=== PATIENT | female | born 1950 | race Hispanic/Latino ===

== ENCOUNTER 2017-10-24 17:11 | Emergency (ER) | payer MEDICARE, OTHER ==
[~2017-10-24] VITALS: Ht 162.6 cm; Wt 90.3 kg
[~2017-10-24 17:11] MED LIST: DOCUSATE PO; LOSARTAN-HCTZ1 EAC3 PO; MULTIVITAMIN1 EAC2 PO; VITAMIN C W/RO500 MG PO; Z FISH OIL PO; Z.1.METFORMIN HCL100 PO
[2017-10-24] MEDS ORDERED: TRADJENTA5 MG (17:48)
[2017-10-24] MEDS ORDERED: PANTOPRAZOLE SO40 MG PO (17:49)
[2017-10-24] MEDS ORDERED: TOPROL XL50 MG PO (17:50)
[2017-10-24] MEDS ORDERED: AMLODIPINE-ATO1 EA10 (17:51)
[2017-10-24] MEDS ORDERED: GABAPENTIN300 MG PO (17:51)
[2017-10-24] MEDS ORDERED: ULTRAM 50MG50 MG PO (17:52)
[2017-10-24] MEDS ORDERED: ASPIR 8181 MG (17:53)
[2017-10-24] MEDS ORDERED: CALCET TABLET1 EACH (17:54)
[2017-10-24] MEDS ORDERED: VITAMIN B-121000 MCG PO (17:55)
[2017-10-24] MEDS ORDERED: VITAMIN C500 M1 (17:56)
[2017-10-24] MEDS ORDERED: ACETAMINOPHEN 325 MG TAB PO ONE (18:00)
[2017-10-24] MEDS ORDERED: SODIUM CHLORIDE FLUSH 10 ML SYR INJ PRN (18:00)
[2017-10-24] MEDS ORDERED: DIAZEPAM 2 MG TAB PO ONE (19:00)
[2017-10-24] MEDS ORDERED: ALPRAZOLAM 1 MG TAB PO ONE (19:00)
--- OUTSIDE RECORDS SUMMARY | 2018-02-01 14:36 | XMS REPORT | Summary of Care ---
Author Author [facility] Address [address] [place] [address] Phone Unavailable Care Team Providers Care Pediatric Licensed Practical Nurse Name Role Phone FIDEL Mcqueen, SHELBY Unavailable Unavailable TOM Mcqueen, BARRETT Unavailable Unavailable TOM HAMILTON [place], BARRETT RAMEY Unavailable Unavailable Unavailable Unavailable Functional Status Name Dates Details Functional status health issues are not documented Status: Name Dates Details Cognitive status health issues are not documented Status: Problems Name Dates Details Atrial septal defect (745.5, Q21.1) Status: Active Osteoarthritis of both knees (715.96, M17.0) Status: Active Soft tissue mass (729.90, M79.9) Status: Active Dermatitis (692.9, L30.9) Status: Active Advanced care planning/counseling discussion (V65.49, Z71.89) Status: Active Exposure to MRSA (V01.89, Z20.818) Status: Active Degenerative joint disease of both lower legs (715.96) Status: Active Pre-operative clearance (V72.84, Z01.818) Status: Active Acute tracheobronchitis (466.0, J20.9) Status: Active RAD (reactive airway disease) (493.90, J45.909) Status: Active Stiffness of hand joint, left (719.54, M25.642) Status: Active Stiffness of hand joint, right (719.54, M25.641) Status: Active Influenza vaccine needed (V04.81, Z23) Status: Active Viral URI with cough (465.9, J06.9) Status: Active 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, 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) Status: Active Hyperlipidemia (272.4, E78.5) Status: Active Hand pain, left (729.5, M79.642) Status: Active Tenosynovitis of finger (727.05, M65.9) Status: Active Oral soft tissue cyst (528.4, K09.9) Status: Active Mass of floor of mouth (784.2, K13.70) Status: Active Submandibular lymphadenitis (289.3, I88.9) Status: Active Limb pain (729.5, M79.609) Status: Active Knee joint replacement status (V43.65, Z96.659) Status: Active Edema extremities (782.3, R60.0) Status: Active Petechiae (782.7, R23.3) Status: Active Essential (primary) hypertension (401.9, I10) Status: Active BMI 33.0-33.9,adult (V85.33, Z68.33) Status: Active Back pain with radiation (724.5, M54.9) Status: Active Need for hepatitis C screening test (V73.89, Z11.59) Status: Active Left hip pain (719.45, M25.552) Status: Active Pain of left lower extremity (729.5, M79.605) Status: Active Left leg pain (729.5, M79.605) Status: Active Other hyperlipidemia (272.4, E78.4) Status: Active 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, 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 Chronic GERD (530.81, K21.9) Status: Active At low risk for fall (V49.89, Z91.81) Status: Active 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, 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 Primary osteoarthritis of both hips (715.15, M16.0) Status: Active Mixed dyslipidemia (272.2, E78.2) Status: Active On statin therapy (V58.69, Z79.899) Status: Active Hypertension, well controlled (401.9, I10) Status: Active Controlled diabetes mellitus without complication, without long-term current use of insulin (250.00, E11.9) Status: Active Patient had no falls in past year (V49.89, Z78.9) Status: Active Depression screening (V79.0, Z13.89) Status: Active Encounter for mini-mental status examination Status: Active BMI 34.0-34.9,adult (V85.34, Z68.34) Status: Active Screening for hypothyroidism (V77.0, Z13.29) Status: Active BMI 32.0-32.9,adult (V85.32, Z68.32) Status: Active Encounter for diabetic foot exam (250.00, E11.9) Status: Active Comprehensive diabetic foot examination, type 2 DM, encounter for (250.00, E11.9) Status: Active Need for 23-polyvalent pneumococcal polysaccharide vaccine (V03.82, Z23) Status: Active Abnormal thyroid blood test (794.5, R94.6) Status: Active Acute sinusitis (461.9, J01.90) Status: Active Medications Name Dates Details MetFORMIN HCl - 1000 MG Oral Tablet TAKE 1 TABLET TWICE DAILY WITH MEALS. Quantity: 180 GOODSHAWNA M.D., BARRETT * Start : 22-Jan-2013 Active Losartan Potassium-HCTZ 100-12.5 MG Oral Tablet TAKE 1 TABLET BY MOUTH EVERY DAY * Quantity: 90 Refills: 2 GOODINE M.D., BARRETT * Start : 22-Jan-2013 Active Fish Oil 1000 MG Oral Capsule TAKE 1 CAPSULE DAILY. * Refills: 0 * Start : 22-Jan-2013 Active Vitamin C 500 MG Oral Tablet TAKE 1 TABLET DAILY. * Refills: 0 * Start : 22-Jan-2013 Active Centrum Oral Tablet TAKE 1 TABLET DAILY. * Refills: 0 * Start : 22-Jan-2013 Active Calcium 600 600 MG Oral Tablet TAKE 1 TABLET DAILY. * Refills: 0 * Start : 22-Jan-2013 Active Vitamin D3 2000 UNIT Oral Tablet take 1 tablet daiily * Quantity: 30 Refills: 5 * Start : 22-Jan-2013 Active Pantoprazole Sodium 40 MG Oral Tablet Delayed Release TAKE 1 TABLET BY MOUTH EVERY DAY * Quantity: 90 Refills: 2 GOODINE M.D., BARRETT * Start : 22-Jan-2013 Active Metoprolol Succinate ER 50 MG Oral Tablet Extended Release 24 Hour TAKE 1 TABLET TWICE DAILY * Quantity: 180 Refills: 2 GOODINE M.D., BARRETT * Start : 22-Jan-2013 Active Tradjenta 5 MG Oral Tablet TAKE 1 TABLET BY MOUTH EVERY DAY * Quantity: 90 Refills: 2 GOODINE M.D., BARRETT * Start : 28-Sep-2013 Active Vitamin B-12 TABS TAKE 1 TABLET DAILY. * Refills: 0 Active Triamterene-HCTZ 37.5-25 MG Oral Tablet TAKE 1 TABLET DAILY. * Quantity: 30 Refills: 5 SHELBY PARRA M.D. * Start : 28-Mar-2017 Active Meloxicam 15 MG Oral Tablet TAKE 1 TABLET Daily after a meal * Quantity: 30 Refills: 0 BARRETT SANTOS M.D. * Start : 28-Apr-2017 Active Tylenol TABS USE NEEDED * Refills: 0 Active Atorvastatin Calcium 40 MG Oral Tablet TAKE 1 TABLET BY MOUTH EVERY DAY DIRECTED * Quantity: 30 Refills: 1 VIKI SANTOS M.D.NDA * Start : 06-Jun-2017 Active Aspirin 81 MG TABS TAKE 1 TABLET DAILY. * Refills: 0 * Start : 22-Jan-2013 Active Gabapentin 300 MG Oral Capsule TAKE 1 CAPSULE 3 TIMES DAILY After 1 week, if tolerated, increase to 2 pills 3 times/day. * Quantity: 270 Refills: 2 VIKI SANTOS M.D.NDA * Start : 22-Jan-2013 Active AmLODIPine Besylate 5 MG Oral Tablet TAKE 1/2 TABLET ONCE DAILY. * Quantity: 90 Refills: 2 TOM Mcqueen, BARRETT * Start : 22-Jan-2013 Active Allergies and Adverse Reactions Name Dates Details No Known Drug Allergies (Allergy) Status: Active Past Medical History Name Dates Details History of Abnormal thyroid blood test (794.5, R94.6) Status: Resolved History of anemia (V12.3, Z86.2) Status: Resolved History of Atrial septal defect (745.5, Q21.1) Status: Resolved History of heartburn (V12.79, Z87.898) Status: Resolved History of hyperlipidemia (V12.29, Z86.39) Status: Resolved History of Multiparity (V61.5, Z64.1) Status: Resolved Procedures Procedure Dates Details [QLH] TSH, 3RD GENERATION W/REFLEX TO FT4 Date: 10-May-2017 [L] Lipid Panel w/ Chol/HDL Ratio Date: 10-May-2017 [QLH] CBC (INCLUDES DIFF/PLT) Date: 10-May-2017 [QLH] CMP W/EGFR Date: 10-May-2017 [QLH] MICROALBUMIN, RANDOM URINE (W/CREATININE) Date: 10-May-2017 [QLH] HEMOGLOBIN A1c Date: 10-May-2017 XRAY Hip min 2 views [id number] Date: 28-Apr-2017 History of Cholecystectomy Completed History of Knee Surgery Completed History of Section Completed History of Ovarian Cystectomy Completed Immunization Name Dates Details Pneumo on: 06-Nov-2007 Zostavax [id number] UNT/0.65ML Subcutaneous Solution Reconstituted on: 11-Mar-2009 Hepatitis A on: 11-Mar-2009 H1N1 Influenza Inj on: 01-Apr-2009 Influenza on: 10-Jan-2012 Fluzone INJ Lot #: [id number] on: 29-Jan-2013 Fluvirin INJ on: Jan-2014 Tdap on: 21-Jun-2014 Prevnar 13 Intramuscular Suspension Lot #: [id number] on: 01-Jul-2014 Fluzone INJ on: 21-Jan-2015 Pneumococcal polysaccharide vaccine, 23 valent Lot #: [id number] on: 16-Oct-2015 Fluzone Quadrivalent 0.5 ML Intramuscular Suspension Lot #: [id number] on: 06-Jan-2016 Fluzone High-Dose SUSP on: 15-Dec-2016 Family History Name Dates Details Family history of Diabetes Mellitus (V18.0) Status: Active Family history of Hypertension (V17.49) Status: Active Family history of Ischemic Stroke (V17.1) Status: Active Name Dates Details Family history of Alcohol Abuse Status: Active Social History Name Dates Details - Status: Name Dates Details Never smoker Vital Signs Date Test Result Details No Known Vitals to report Results Date Description Value Details [id number] Negative Retinal Eye Exam (Diabetic) Negative Diabetic Eye Screening 11May2017 Plan of Care Name Dates Details Planned Observations Planned Goals not documented Planned Encounters Appointment; SHELBY PARRA M.D. On: 03-Oct-2017 11:20 Appointment; BARRETT SANTOS M.D. On: 18-Oct-2017 8:30 Instructions Name Dates Details Instructions not documented Encounters Appointment; NOHEMI WILKS M.D. Encounter Diagnosis: Problem not documented On: 09-Jul-2015 9:00 Appointment; NOHEMI WILKS M.D. Encounter Diagnosis: Problem not documented On: 23-Jul-2015 9:00 Appointment; NOHEMI WILKS M.D. Encounter Diagnosis: Problem not documented On: 20-Aug-2015 9:45 Appointment; NOHEMI WILKS M.D. Encounter Diagnosis: Problem not documented On: 25-Aug-2015 7:00 Appointment; NOHEMI WILKS M.D. Encounter Diagnosis: Problem not documented On: 05-Sep-2015 10:30 Appointment; SHEBLY PARRA M.D. Encounter Diagnosis: Problem not documented On: 08-Sep-2015 11:20 Appointment; NOHEMI WILKS M.D. Encounter Diagnosis: Problem not documented On: 26-Sep-2015 10:00 Appointment; NOHEMI WILKS M.D. Encounter Diagnosis: Problem not documented On: 10-Oct-2015 13:00 Appointment; BARRETT SANTOS M.D. Encounter Diagnosis: Problem not documented On: 16-Oct-2015 10:45 Appointment; NOHEMI WILKS M.D. Encounter Diagnosis: Problem not documented On: 22-Oct-2015 9:00 Appointment; NOHEMI WILKS M.D. Encounter Diagnosis: Problem not documented On: 21-Nov-2015 10:15 Appointment; SHELBY PARRA M.D. Encounter Diagnosis: Problem not documented On: 27-Nov-2015 16:40 Appointment; SHELBY PARRA M.D. Encounter Diagnosis: Problem not documented On: 28-Nov-2015 16:40 Appointment; NOHEMI WILKS M.D. Encounter Diagnosis: Problem not documented On: 01-Jan-2016 9:45 Appointment; BARRETT SANTOS M.D. Encounter Diagnosis: Problem not documented On: 06-Jan-2016 10:45 Appointment; ROB WHITLEY M.D. Encounter Diagnosis: Problem not documented On: 21-Jan-2016 9:15 Appointment; NOHEMI WILKS M.D. Encounter Diagnosis: Problem not documented On: 22-Jan-2016 10:15 Appointment; KAREN EVANS M.D. Encounter Diagnosis: Problem not documented On: 22-Jan-2016 10:45 Appointment; NOHEMI WILKS M.D. Encounter Diagnosis: Problem not documented On: 26-Jan-2016 9:00 Appointment; NOHEMI WILKS M.D. Encounter Diagnosis: Problem not documented On: 13-Feb-2016 8:45 Appointment; NOHEMI WILKS M.D. Encounter Diagnosis: Problem not documented On: 08-Apr-2016 10:15 Appointment; SHELBY PARRA M.D. Encounter Diagnosis: Problem not documented On: 19-Apr-2016 11:20 Appointment; VASCULAR, BELLAIRE Encounter Diagnosis: Problem not documented On: 21-Apr-2016 9:30 Appointment; ROB WHITLEY M.D. Encounter Diagnosis: Problem not documented On: 21-Apr-2016 10:30 Appointment; BARRETT SANTOS M.D. Encounter Diagnosis: Problem not documented On: 04-May-2016 10:15 Appointment; BARRETT SANTOS M.D. Encounter Diagnosis: Problem not documented On: 01-Jul-2016 15:15 Appointment; NOHEMI WILKS M.D. Encounter Diagnosis: Problem not documented On: 07-Jul-2016 10:15 Appointment; BARRETT SANTOS M.D. Encounter Diagnosis: Problem not documented On: 09-Jul-2016 10:30 Appointment; BARRETT SANTOS M.D. Encounter Diagnosis: Problem not documented On: 30-Jul-2016 8:30 Appointment; BARRETT SANTOS M.D. Encounter Diagnosis: Problem not documented On: 18-Oct-2016 8:30 Appointment; ROB WHITLEY M.D. Encounter Diagnosis: Problem not documented On: 23-Nov-2016 16:00 Appointment; ROB WHITLEY M.D. Encounter Diagnosis: Problem not documented On: 24-Nov-2016 15:00 Appointment; VASCULAR, BELLAIRE Encounter Diagnosis: Problem not documented On: 25-Nov-2016 11:00 Appointment; ROB WHITLEY M.D. Encounter Diagnosis: Problem not documented On: 26-Nov-2016 11:00 Appointment; VASCULAR, BELLAIRE Encounter Diagnosis: Problem not documented On: 29-Nov-2016 14:30 Appointment; ROB WHITLEY M.D. Encounter Diagnosis: Problem not documented On: 29-Nov-2016 15:00 Appointment; NURSE, VISIT Encounter Diagnosis: Problem not documented On: 03-Dec-2016 13:00 Appointment; ROB WHITLEY M.D. Encounter Diagnosis: Problem not documented On: 08-Dec-2016 11:30 Appointment; MASON WEISS M.D. Encounter Diagnosis: Problem not documented On: 01-Mar-2017 10:30 Appointment; SHELBY PARRA M.D. Encounter Diagnosis: Problem not documented On: 28-Mar-2017 11:20 Appointment; MASON WEISS M.D. Encounter Diagnosis: Problem not documented On: 13-Apr-2017 8:00 Appointment; BARRETT SANTOS M.D. Encounter Diagnosis: Problem not documented On: 28-Apr-2017 8:30 Appointment; BARRETT SANTOS M.D. Encounter Diagnosis: Problem not documented On: 10-May-2017 9:00
== END 2017-10-24 19:50 | disposition home or self-care (01) ==
LOC: FSED 17:11
DX: R51 Headache (principal); I10 Essential (primary) hypertension; E11.9 Type 2 diabetes mellitus without complications; E78.5 Hyperlipidemia, unspecified; K21.9 Gastro-esophageal reflux disease without esophagitis
CPT/HCPCS: 70496; 80053; 82553; 84484; 85025; 99284

== ENCOUNTER 2019-01-17 20:04 | Emergency (ER) | payer MEDICARE ==
[~2019-01-17] VITALS: Ht 162.6 cm; Wt 86.2 kg
[~2019-01-17 20:04] MED LIST changes: +AMLODIPINE-ATO1 EA10; +ASPIR 8181 MG; +CALCET TABLET1 EACH; +GABAPENTIN300 MG PO; +PANTOPRAZOLE SO40 MG PO; +TOPROL XL50 MG PO; +TRADJENTA5 MG; +ULTRAM 50MG50 MG PO; +VITAMIN B-121000 MCG PO; +VITAMIN C500 M1
--- OUTSIDE RECORDS SUMMARY | 2019-01-17 20:08 | XMS REPORT | Continuity of Care Document ---
Author Author [employer] Organization [employer] Address Unknown Phone Unavailable Care Team Providers Care Cycle Counter Name Role Phone [employer] Unavailable Unavailable Problems Problem Status Onset Date Classification Date Reported Comments Source Encounter for screening mammogram for malignant neoplasm of breast 05/01/2018 11/12/2018 [facility] [place] Z12.31 - ENCNTR SCREEN MAMMOGRAM FOR MA Active 04/21/2018 [facility] [place] Low back pain 05/21/2017 08/24/2017 [facility] [place] BACK PAIN Active 02/07/2017 [facility] [place] UNK Active 01/01/2016 [facility] TOTAL KNEE ARTHROPLASTY Active 07/23/2015 [facility] KNEE ARTHRITIS 715.96 Active 05/09/2014 [facility] 719.46 - JOINT PAIN-L/LE Active 10/11/2013 SONIA [place] ASD Active 01/22/2013 [facility] 724.2 - LUMBAGO Active 05/12/2012 S[facility] [place] Muscle weakness (generalized) 08/24/2017 [facility] [place] Stiffness of unspecified joint, not elsewhere classified 08/24/2017 [facility] [place] Difficulty in walking, not elsewhere classified 08/24/2017 [facility] [place] Final: Stiffness of left knee, not elsewhere classified 05/03/2016 [facility] [place] Final: Difficulty in walking, not elsewhere classified 05/03/2016 [facility] [place] Gastroesophageal reflux disease (disorder) Active Problem 11/12/2018 [facility] [place],[facility] [place], [facility] [place] Diabetes mellitus (disorder) Active Problem 11/12/2018 SONIA [place],[facility] [place], [facility] [place] Hyperlipidemia (disorder) Active Problem 11/12/2018 SONIA [place],[facility] [place], [facility] [place] Hypertensive disorder, systemic arterial (disorder) Active Problem 11/12/2018 SONIA [place],[facility] [place], SONIA [place] Spinal stenosis (disorder) Active Problem 11/12/2018 [facility] [place],[facility], [facility] [place], [facility] [place] OSTEOARTHROS NOS-L/LEG Active [facility] UNILATERAL PRIMARY OSTEOARTHRITIS, RIGHT Active [facility] JOINT CAMP- S/P RT TKA Active ARNOLDO [place] PRESENCE OF RIGHT ARTIFICIAL KNEE JOINT Active [facility] [place] JOINT CAMP - S/P TKA Active [facility] [place] UNILATERAL PRIMARY OSTEOARTHRITIS, LEFT Active [facility], [facility] [place] PAIN IN LEFT KNEE Active [facility] [place] MUSCLE WEAKNESS (GENERALIZED) Active [facility] [place] JOINT CAMP Active [facility] [place] STIFFNESS OF LEFT KNEE, NOT ELSEWHERE CL Active [facility] [place] DIFFICULTY IN WALKING, NOT ELSEWHERE CLA Active [facility] [place] DORSALGIA, UNSPECIFIED Active [facility] [place] LOW BACK PAIN Active [facility] [place] STIFFNESS OF UNSPECIFIED JOINT, NOT ELSE Active [facility] [place] Medications Medication Details Route Status Patient Instructions Ordering Provider Order Date Source dexamethasone 2 mg, 0.5 tab, Route: PO, Drug form: TAB, ONCE, Start date: 01/29/16 12:00:00 CDT, Stop date: 01/29/16 12:00:00 CDTNotes: Give with food. (Same As: Decadron) No Longer Active 01/29/2016 [facility] dexamethasone 4 mg, 1 tab, Route: PO, Drug form: TAB, ONCE, Start date: 01/28/16 12:00:00 CDT, Stop date: 01/28/16 12:00:00 CDTNotes: Give with food. (Same As: Decadron) No Longer Active 01/28/2016 [facility] Saline Flush 0.9% 10 ml, Route: IVP, Drug Form: INJ, 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, kg, Q12H, Start date: 01/27/16 21:00:00 CDT, Duration: 30 day, Stop date: 02/26/16 9:00:00 CDTNotes: (Same as: BD Posiflush) Inactive 01/28/2016 [facility] dexamethasone 4 mg, 1 mL, Route: IV, Drug form: INJ, ONCE, Start date: 01/27/16 12:00:00 CDT, Stop date: 01/27/16 12:00:00 CDTNotes: Concentration: 4mg/ml Inactive 01/27/2016 [facility] Saline Flush 0.9% 10 ml, Route: IVP, Drug Form: INJ, 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, kg, PRN, PRN Line Flush, Start date: 01/27/16 11:19:00 CDT, Duration: 30 day, Stop date: 02/26/16 11:18:00 CDTNotes: (Same as: BD Posiflush) Inactive 01/27/2016 [facility] Enoxaparin 40 mg, 0.4 mL, Route: SUB-Q, Drug form: INJ, Daily, 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, kg, Start date: 01/27/16 9:22:00 CDT, Duration: 30 day, Stop date: 02/25/16 9:22:00 CDTNotes: (Same as: Lovenox) Inactive 01/27/2016 [facility] enoxaparin 40 mg/0.4 mL subcutaneous solution 40 mg=0.4 mL, SUB-Q, Daily, # 1 mL, 0 Refill(s), called to pharmacy No Longer Active 01/27/2016 [facility] dexamethasone 4 mg oral tablet 4 mg=1 tab, PO, ONCE, # 1 tab, 0 Refill(s), called to pharmacy Active 01/27/2016 [facility] Acetaminophen 325 MG / Oxycodone Hydrochloride 10 MG Oral Tablet [Percocet 10/325] 1 tab, PO, Q3H, PRN Pain Score 7-10, # 90 tab, 0 Refill(s), given to patient No Longer Active 01/27/2016 [facility] Vitamin C 500 mg, 1 tab, Route: PO, Drug form: TAB, Daily, 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, kg, Start date: 01/27/16 9:00:00 CDT, Duration: 30 day, Stop date: 02/25/16 9:00:00 CDTNotes: (Same as: Vitamin C) Inactive 01/27/2016 [facility] hydrochlorothiazide 25 mg oral tablet 12.5 mg, 0.5 tab, Route: PO, Drug form: TAB, Daily, Start date: 01/27/16 9:00:00 CDT, Duration: 30 day, Stop date: 02/25/16 9:00:00 CDTNotes: (Same as: Hydrodiuril) With food. Inactive 01/27/2016 [facility] Cozaar 100 mg, 2 tab, Route: PO, Drug form: TAB, Daily, Start date: 01/27/16 9:00:00 CDT, Duration: 30 day, Stop date: 02/25/16 9:00:00 CDTNotes: (Same as: Cozaar) Inactive 01/27/2016 [facility] Hydrochlorothiazide 12.5 MG / Losartan Potassium 100 MG Oral Tablet 1 tab, Route: PO, Drug Form: TAB, 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, kg, Daily, Start date: 01/27/16 9:00:00 CDT, Duration: 30 day, Stop date: 02/25/16 9:00:00 CDT No Longer Active 01/27/2016 [facility] atorvastatin 40 mg, 1 tab, Route: PO, Drug form: TAB, Bedtime, 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, kg, Start date: 01/26/16 21:00:00 CDT, Duration: 30 day, Stop date: 02/24/16 21:00:00 CDTNotes: (Same as: Lipitor) No Longer Active 01/27/2016 [facility] Vancomycin 6.67 MG/ML Injectable Solution 1,000 mg, Route: IVPB, [id number], 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, kg, Time Critical Medication, Start date: 01/26/16 19:30:00 CDT, Duration: 2 doses or times, Stop date: 01/27/16 7:30:00 CDT, Pharmacy to adjust dose for renal functionNotes: TIME CRITICAL MEDICATION (Same As: Vancocin) Infusion rate 2001 mg: infuse over 2.5 hours MEDICATION WASTE Product Size: 1000 mg Product Wasted: ___ mg No Longer Active 01/27/2016 [facility] Amlodipine 5 mg, 1 tab, Route: PO, Drug form: TAB, Daily, 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, kg, Start date: 01/26/16 18:00:00 CDT, Duration: 30 day, Stop date: 02/24/16 18:00:00 CDTNotes: (Same as: Norvasc) No Longer Active 01/26/2016 [facility] Docusate 100 mg, 1 cap, Route: PO, Drug form: CAP, BID, 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, kg, Start date: 01/26/16 17:00:00 CDT, Duration: 30 day, Stop date: 02/25/16 9:00:00 CDTNotes: (Same as: Colace) (Do Not Crush) No Longer Active 01/26/2016 [facility] 24 HR Metformin hydrochloride 1000 MG Extended Release Tablet 1,000 mg, 2 tab, Route: PO, Drug form: TAB, BID-Meals, 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, kg, Start date: 01/26/16 17:00:00 CDT, Duration: 30 day, Stop date: 02/25/16 8:00:00 CDTNotes: (Same as: Glucophage) Take with meal No Longer Active 01/26/2016 [facility] Cyklokapron + sodium chloride 0.9% INJ 100 mL 1,000 mg, 10 mL, Route: IVPB, ONCE, Start date: 01/26/16 16:30:00 CDT, Stop date: 01/26/16 16:30:00 CDTNotes: (Same As: Cyklokapron) Inactive 01/26/2016 [facility] pantoprazole 40 mg, 1 tab, Route: PO, Drug form: ECTAB, Before Dinner, 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, kg, Start date: 01/26/16 16:30:00 CDT, Duration: 30 day, Stop date: 02/24/16 16:30:00 CDTNotes: Tablet should not be ch ewed or crushed. (Same as: Protonix) No Longer Active 01/26/2016 [facility] tramadol hydrochloride 50 MG Oral Tablet 50 mg=1 tab, PO, BID, PRN Pain 1-3/Temp > 100.4 F, # 30 tab, 0 Refill(s) No Longer Active 01/26/2016 [facility] multivitamin 1 tab, PO, Daily, 0 Refill(s) Active 01/26/2016 [facility] Docusate Sodium 100 MG Oral Capsule [Colace] 100 mg=1 cap, PO, BID, # 60 cap, 0 Refill(s) Active 01/26/2016 [facility] Fish Oil 1200 mg oral capsule 1,200 mg=1 cap, PO, Daily, 0 Refill(s) Active 01/26/2016 [facility] Ketorolac 15 mg, 1 mL, Route: IV, Drug form: INJ, Q8H, 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, kg, Start date: 01/26/16 16:00:00 CDT, Duration: 2 day, Stop date: 01/28/16 8:00:00 CDTNotes: (Same as:Toradol) IV bolus must be given >15 seconds. Give IM administration slowly and deeply into the muscle. Not for use > 4 days. No Longer Active 01/26/2016 [facility] Zofran 4 mg, 2 mL, Route: IV, Drug form: INJ, Q8H, 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, kg, Start date: 01/26/16 16:00:00 CDT, Duration: 3 doses or times, Stop date: 01/27/16 8:00:00 CDTNotes: (Same as: Zofran) MEDICATION WASTE Product Size: 4 mg Product Wasted: ___ mg No Longer Active 01/26/2016 [facility] 24 HR Metoprolol Tartrate 50 MG Extended Release Tablet [Toprol] 50 mg, 1 tab, Route: PO, Drug form: ERTAB, BID, Start date: 01/26/16 14:00:00 CDT, Duration: 30 day, Stop date: 02/24/16 22:00:00 CDTNotes: (Same as: Toprol XL) May split tab, but do not crush. No Longer Active 01/26/2016 [facility] gabapentin 300 MG Oral Capsule 300 mg, 1 cap, Route: PO, Drug form: CAP, TID, 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, kg, Start date: 01/26/16 14:00:00 CDT, Duration: 30 day, Stop date: 02/25/16 8:00:00 CDTNotes: (Same as: Neurontin) No Longer Active 01/26/2016 [facility] ceFAZolin (SCIP) 1 gm, 100 mL, Route: IVPB, Drug form: INJ, Q6H, 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, kg, Start date: 01/26/16 13:30:00 CDT, Duration: 3 doses or times, Stop date: 01/27/16 1:30:00 CDT No Longer Active 01/26/2016 [facility] Insulin, Aspart, Human 4 unit, 0.04 mL, Route: SUB-Q, Drug form: SOLN, Bedtime, 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, kg, PRN Blood Glucose Results, Start date: 01/26/16 12:38:00 CDT, Duration: 30 day, Stop date: 02/25/16 12:37:00 CDTNotes: Roll in palms of hands gently; Do not shake vigorously. (Same as: NovoLOG) "single patient use only" WASTE: F/P - Black; E - Municipal Trash Bin Stable for 28 days at room temperature. Expires in days from Date No Longer Active 01/26/2016 [facility] Dextrose 50% Syringe 12.5 gm, 25 mL, Route: IVP, Drug Form: INJ, 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, kg, PRN, PRN Blood Glucose Results, Start date: 01/26/16 12:38:00 CDT, Duration: 30 day, Stop date: 02/25/16 12:37:00 CDT No Longer Active 01/26/2016 [facility] Glucagon 1 mg, Route: IM, Drug form: PDR/INJ, PRN, 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, kg, PRN Blood Glucose Results, Start date: 01/26/16 12:38:00 CDT, Duration: 30 day, Stop date: 02/25/16 12:37:00 CDT No Longer Active 01/26/2016 [facility] Diphenhydramine 12.5 mg, 0.5 tab, Route: PO, Drug form: TAB, Q6H, 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, kg, PRN Itching, Start date: 01/26/16 11:19:00 CDT, Duration: 30 day, Stop date: 02/25/16 11:18:00 CDT No Longer Active 01/26/2016 [facility] Bisacodyl 10 mg, 1 supp, Route: LA, Drug form: SUPP, Daily, 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, kg, PRN Constipation, Start date: 01/26/16 11:19:00 CDT, Duration: 30 day, Stop date: 02/25/16 11:18:00 CDTNotes: (Same As: Dulcolax, Bisco-Lax) No Longer Active 01/26/2016 [facility] Dilaudid 0.2 mg, 0.2 mL, Route: IV, Drug form: INJ, Q3H, 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, kg, PRN Other -See Comment, Start date: 01/26/16 11:19:00 CDT, Duration: 30 day, Stop date: 02/25/16 11:18:00 CDT No Longer Active 01/26/2016 [facility] Zofran 4 mg, 2 mL, Route: IV, Drug form: INJ, Q6H, 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, kg, PRN Nausea, Start date: 01/26/16 11:19:00 CDT, Duration: 30 day, Stop date: 02/25/16 11:18:00 CDTNotes: (Same as: Zofran) MEDICATION WASTE Product Size: 4 mg Product Wasted: ___ mg No Longer Active 01/26/2016 [facility] Acetaminophen 325 MG / Hydrocodone Bitartrate 5 MG Oral Tablet [[place] 5/325] 1 tab, Route: PO, Drug Form: TAB, 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, kg, Q3H, PRN Pain Score 1-3, Start date: 01/26/16 11:19:00 CDT, Duration: 30 day, Stop date: 02/25/16 11:18:00 CDTNotes: (Same as: [place] 325/5) Do not exceed 4gm/day of acetaminophen. No Longer Active 01/26/2016 [facility] Acetaminophen 325 MG / Hydrocodone Bitartrate 10 MG Oral Tablet [[place] 10/325] 1 tab, Route: PO, Drug Form: TAB, 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, kg, Q3H, PRN Pain Score 4-6, Start date: 01/26/16 11:19:00 CDT, Duration: 30 day, Stop date: 02/25/16 11:18:00 CDTNotes: Do not exceed 4gm/day of acetaminophen. (Same as: [place] 325/10) No Longer Active 01/26/2016 [facility] Acetaminophen 325 MG / Oxycodone Hydrochloride 10 MG Oral Tablet [Percocet 10/325] 1 tab, Route: PO, Drug Form: TAB, 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, kg, Q3H, PRN Pain Score 7-10, Start date: 01/26/16 11:19:00 CDT, Duration: 30 day, Stop date: 02/25/16 11:18:00 CDTNotes: Do not exceed 4gm/day of acetaminophen. (Same as: Percocet-5/325) No Longer Active 01/26/2016 [facility] Dexamethasone 4 mg, Route: IV, ONCE, 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, kg, Start date: 01/26/16 11:19:00 CDT, Stop date: 01/26/16 11:19:00 CDT Inactive 01/26/2016 [facility] Tranexamic Acid 1,000 mg, Route: IV, ONCE, 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, kg, Start date: 01/26/16 11:19:00 CDT, Stop date: 01/26/16 11:19:00 CDT Inactive 01/26/2016 [facility] sodium chloride 0.45% 1000 ml INJ 1,000 mL 1,000 mL, Rate: 75 ml/hr, Infuse over: 13.3 hr, Route: IV, 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 kg, Total Volume: 1,000, Start date: 01/26/16 11:19:00 CDT, Duration: 30 day, Stop date: 02/25/16 11:18:00 CDT No Longer Active 01/26/2016 [facility] neostigmine (ANES) Route: IV, Drug form: INJ, ONCE, Stop date: 01/26/16 11:01:00 CDT Inactive 01/26/2016 [facility] tranexamic acid (ANES) Route: IV, Drug form: INJ, ONCE, Stop date: 01/26/16 10:56:00 CDT Inactive 01/26/2016 [facility] ondansetron (ANES) Route: IV, Drug form: INJ, ONCE, Stop date: 01/26/16 10:56:00 CDT Inactive 01/26/2016 [facility] ePHEDrine (ANES) Route: IV, Drug form: INJ, ONCE, Stop date: 01/26/16 9:01:00 CDT Inactive 01/26/2016 [facility] glycopyrrolate (ANES) Route: IV, Drug form: INJ, ONCE, Stop date: 01/26/16 8:51:00 CDT Inactive 01/26/2016 [facility] phenylephrine (ANES) Route: IV, Drug form: INJ, ONCE, Stop date: 01/26/16 8:51:00 CDT Inactive 01/26/2016 [facility] dexamethasone (ANES) Route: IV, Drug form: INJ, ONCE, Stop date: 01/26/16 8:41:00 CDT Inactive 01/26/2016 [facility] vancomycin (ANES) Route: IV, Drug form: INJ, ONCE, Stop date: 01/26/16 8:41:00 CDT Inactive 01/26/2016 [facility] rocuronium (ANES) Route: IV, Drug form: INJ, ONCE, Stop date: 01/26/16 8:36:00 CDT Inactive 01/26/2016 [facility] lidocaine (ANES) Route: IV, Drug form: INJ, ONCE, Stop date: 01/26/16 8:36:00 CDT Inactive 01/26/2016 [facility] propofol (ANES) Route: IV, Drug form: INJ, ONCE, Stop date: 01/26/16 8:36:00 CDT Inactive 01/26/2016 [facility] ceFAZolin (ANES) Route: IV, Drug form: INJ, ONCE, Stop date: 01/26/16 8:36:00 CDT Inactive 01/26/2016 [facility] LR 1000 mL INJ (ANES) Route: IV, Total Volume: 1,000, Start date: 01/26/16 7:39:00 CDT, Stop date: 01/26/16 8:39:00 CDT Inactive 01/26/2016 [facility] Calcium Chloride 0.0014 MEQ/ML / Potassium Chloride 0.004 MEQ/ML / Sodium Chloride 0.103 MEQ/ML / Sodium Lactate 0.028 MEQ/ML Injectable Solution 1,000 mL, Rate: 25 ml/hr, Infuse over: 40 hr, Route: IV, 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 kg, Total Volume: 1,000, Start date: 01/26/16 7:18:00 CDT, Duration: 30 day, Stop date: 02/25/16 7:17:00 CDT Inactive 01/26/2016 [facility] Oxycontin 10 mg, Route: PO, Drug form: ERTAB, ONCALL, 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, kg, Start date: 01/26/16 7:00:00 CDT, Duration: 30 day, Stop date: 02/25/16 6:59:00 CDT Inactive 01/26/2016 [facility] Tylenol 1,000 mg, Route: PO, ONCALL, 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, kg, Start date: 01/26/16 7:00:00 CDT, Duration: 30 day, Stop date: 02/25/16 6:59:00 CDT Inactive 01/26/2016 [facility] Tranexamic Acid 1,000 mg, Route: IV, ONCALL, 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, kg, Start date: 01/26/16 7:00:00 CDT, Duration: 30 day, Stop date: 02/25/16 6:59:00 CDT Inactive 01/26/2016 [facility] celecoxib 200 mg, Route: PO, ONCALL, 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, kg, (for CrCl > 90 mL/min), Start date: 01/26/16 7:00:00 CDT, Duration: 30 day, Stop date: 02/25/16 6:59:00 CDT Inactive 01/26/2016 [facility] ropivacaine 100 mL, Route: InFILtration(local), Drug Form: INJ, 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, kg, ONCALL, Start date: 01/26/16 7:00:00 CDT, Duration: 1 day, Stop date: 01/27/16 6:59:00 CDTNotes: NOT FOR IV use R opivacaine 5 mg/mL (49.25 mL) Epinephrine 1 mg/mL (0.5 mL) Clonidine 0.1 mg/mL (0.8 mL) Ketorolac 30 mg/mL (1 mL) Normal Saline 48.45 mL No Longer Active 01/26/2016 [facility] Cefazolin 2 gm, 100 mL, Route: IVPB, Drug form: INJ, ONCALL, 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, kg, Start date: 01/26/16 7:00:00 CDT, Duration: 30 day, Stop date: 02/25/16 6:59:00 CDTNotes: Same as: Ancef Inactive 01/26/2016 [facility] Vancomycin 1,250 mg, 250 mL, Route: IVPB, Drug form: INJ, ONCALL, 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, kg, Start date: 01/26/16 7:00:00 CDT, Stop date: 01/26/16 21:12:00 CDTNotes: TIME CRITICAL MEDICATION Same as: Vancocin-NS (p remixed) Infusion rate 2001 mg: infuse over 2.5 hours No Longer Active 01/26/2016 [facility] Diclofenac Sodium 0.01 MG/MG Topical Gel [Voltaren] 4 gm=1 appl, TOP, BID, PRN Apply to affected area, # 100 gm, 1 Refill(s) No Longer Active 01/08/2016 [facility] Aspirin 81 MG Enteric Coated Tablet 81 mg=1 tab, PO, Daily, # 90 tab, 3 Refill(s) No Longer Active 01/08/2016 [facility] dexamethasone 2 mg, 0.5 tab, Route: PO, Drug form: TAB, ONCE, Start date: 08/29/15 9:00:00 CDT, Stop date: 08/29/15 9:00:00 CDTNotes: Give with food. (Same As: Decadron) No Longer Active 08/29/2015 [facility] dexamethasone 2 mg, 0.5 tab, Route: PO, Drug form: TAB, ONCE, Start date: 08/28/15 9:00:00 CDT, Stop date: 08/28/15 9:00:00 CDTNotes: Give with food. (Same As: Decadron) No Longer Active 08/28/2015 [facility] Acetaminophen 325 MG / Hydrocodone Bitartrate 10 MG Oral Tablet 1 tab, PO, Q3H, PRN Pain, # 90 tab, 0 Refill(s), given to patient No Longer Active 08/27/2015 [facility] enoxaparin 40 mg/0.4 mL subcutaneous solution 40 mg=0.4 mL, SUB-Q, [id number], # 1 mL, 0 Refill(s), called to pharmacy No Longer Active 08/27/2015 [facility] dexamethasone 4 mg, 1 tab, Route: PO, Drug form: TAB, ONCE, Start date: 08/27/15 9:00:00 CDT, Stop date: 08/27/15 9:00:00 CDTNotes: Give with food. (Same As: Decadron) Inactive 08/27/2015 [facility] Saline Flush 0.9% 10 ml, Route: IVP, Drug Form: INJ, 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, kg, Q12H, Start date: 08/26/15 21:00:00 CDT, Duration: 30 day, Stop date: 09/25/15 9:00:00 CDTNotes: (Same as: BD Posiflush) No Longer Active 08/27/2015 [facility] Potassium Chloride 20 MEQ Extended Release Tablet 20 mEq, 1 tab, Route: PO, Drug form: ERTAB, ONCE, Dosing Weight 93.182, kg, Priority: NOW, Start date: 08/26/15 16:21:00 CDT, Stop date: 08/26/15 16:21:00 CDTNotes: (Same as: K-Dur 20) "Do Not Crush" With food and full glass of water Inactive 08/26/2015 [facility] pt own Tradjenta pt own Tradjenta, 5 mg, Drug form: MISC, Route: PO, Daily, 08/26/15 13:00:00 CDT, Duration: 30 day, Stop date: 09/25/15 9:00:00 CDTNotes: non-formulary No Longer Active 08/26/2015 [facility] acetaminophen-hydrocodone 325 mg-10 mg oral tablet 1 tab, Route: PO, Drug Form: TAB, 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, kg, Q3H, PRN Pain Score 4-6, Start date: 08/26/15 11:34:00 CDT, Duration: 30 day, Stop date: 09/25/15 11:33:00 CDTNotes: Do not exceed 4gm/day of acetaminophen. (Same as: [place] 325/10) No Longer Active 08/26/2015 [facility] Tylenol 325 mg, 1 tab, Route: PO, Drug form: TAB, Q3H, PRN Pain Score 7-10, Start date: 08/26/15 11:27:00 CDT, Duration: 30 day, Stop date: 09/25/15 11:26:00 CDTNotes: Do not exceed 4 gm/day. (Same as: Tylenol) No Longer Active 08/26/2015 [facility] OxyIR 10 mg, 2 tab, Route: PO, Drug form: TAB, Q3H, PRN Pain Score 7-10, Start date: 08/26/15 11:26:00 CDT, Duration: 30 day, Stop date: 09/25/15 11:25:00 CDTNotes: (Same as: OxyIR) No Longer Active 08/26/2015 [facility] Tylenol 325 mg, 1 tab, Route: PO, Drug form: TAB, Q3H, PRN Pain Score 4-6, Start date: 08/26/15 11:25:00 CDT, Duration: 30 day, Stop date: 09/25/15 11:24:00 CDTNotes: Do not exceed 4 gm/day. (Same as: Tylenol) Inactive 08/26/2015 [facility] OxyIR 10 mg, 2 tab, Route: PO, Drug form: TAB, Q3H, PRN Pain Score 4-6, Start date: 08/26/15 11:25:00 CDT, Duration: 30 day, Stop date: 09/25/15 11:24:00 CDTNotes: (Same as: OxyIR) Inactive 08/26/2015 [facility] Saline Flush 0.9% 10 ml, Route: IVP, Drug Form: INJ, 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, kg, PRN, PRN Line Flush, Start date: 08/26/15 10:23:00 CDT, Duration: 30 day, Stop date: 09/25/15 10:22:00 CDTNotes: (Same as: BD Posiflush) No Longer Active 08/26/2015 [facility] Enoxaparin 40 mg, 0.4 mL, Route: SUB-Q, Drug form: INJ, [id number], 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, kg, Start date: 08/26/15 9:30:00 CDT, Duration: 30 day, Stop date: 09/24/15 9:30:00 CDTNotes: (Same as: Lovenox) No Longer Active 08/26/2015 [facility] dexamethasone 4 mg, 1 mL, Route: IVP, Drug form: INJ, ONCE, Start date: 08/26/15 9:00:00 CDT, Stop date: 08/26/15 9:00:00 CDTNotes: Concentration: 4mg/ml Inactive 08/26/2015 [facility] pantoprazole 40 mg, 1 tab, Route: PO, Drug form: ECTAB, Daily, 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, kg, Start date: 08/26/15 9:00:00 CDT, Duration: 30 day, Stop date: 09/24/15 9:00:00 CDTNotes: Tablet should not be chewed or cr ushed. (Same as: Protonix) No Longer Active 08/26/2015 [facility] 24 HR Metformin hydrochloride 1000 MG Extended Release Tablet 1,000 mg, 2 tab, Route: PO, Drug form: ERTAB, BID, 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, kg, Start date: 08/26/15 9:00:00 CDT, Duration: 30 day, Stop date: 09/24/15 17:00:00 CDTNotes: (Same as: Glucophage XR) "Do Not Crush" No Longer Active 08/26/2015 [facility] Tradjenta 5 mg, Route: PO, Drug form: TAB, Daily, 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, kg, Start date: 08/26/15 9:00:00 CDT Inactive 08/26/2015 [facility] Hydrochlorothiazide 12.5 MG / Losartan Potassium 100 MG Oral Tablet 1 tab, Route: PO, Drug Form: TAB, 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, kg, Daily, Start date: 08/26/15 9:00:00 CDT, Duration: 30 day, Stop date: 09/24/15 9:00:00 CDT No Longer Active 08/26/2015 [facility] gabapentin 300 MG Oral Capsule 300 mg, 1 cap, Route: PO, Drug form: CAP, TID, 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, kg, Start date: 08/26/15 9:00:00 CDT, Duration: 30 day, Stop date: 09/24/15 17:00:00 CDTNotes: (Same as: Neurontin) No Longer Active 08/26/2015 [facility] Cozaar 100 mg, 2 tab, Route: PO, Drug form: TAB, Daily, Start date: 08/26/15 9:00:00 CDT, Duration: 30 day, Stop date: 09/24/15 9:00:00 CDTNotes: (Same as: Cozaar) No Longer Active 08/26/2015 [facility] Aspirin 81 mg, 1 tab, Route: PO, Drug form: ECTAB, Daily, 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, kg, Start date: 08/26/15 9:00:00 CDT, Duration: 30 day, Stop date: 09/24/15 9:00:00 CDTNotes: Do not crush or chew. (Same As: Ecotrin) No Longer Active 08/26/2015 [facility] Amlodipine 5 mg, 1 tab, Route: PO, Drug form: TAB, Daily, 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, kg, Start date: 08/26/15 9:00:00 CDT, Duration: 30 day, Stop date: 09/24/15 9:00:00 CDTNotes: (Same as: Norvasc) No Longer Active 08/26/2015 [facility] Microzide 12.5 mg, 1 cap, Route: PO, Drug form: CAP, Daily, Start date: 08/26/15 9:00:00 CDT, Duration: 30 day, Stop date: 09/24/15 9:00:00 CDTNotes: (Same as: Microzide) With food. No Longer Active 08/26/2015 [facility] 24 HR Metoprolol Tartrate 50 MG Extended Release Tablet [Toprol] 50 mg, 1 tab, Route: PO, Drug form: ERTAB, BID, Start date: 08/25/15 22:00:00 CDT, Duration: 30 day, Stop date: 09/24/15 14:00:00 CDTNotes: (Same as: Toprol XL) May split tab, but do not crush. No Longer Active 08/26/2015 [facility] atorvastatin 40 mg, 1 tab, Route: PO, Drug form: TAB, Bedtime, 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, kg, Start date: 08/25/15 21:00:00 CDT, Duration: 30 day, Stop date: 09/23/15 21:00:00 CDTNotes: (Same as: Lipitor) No Longer Active 08/26/2015 [facility] Vancomycin 6.67 MG/ML Injectable Solution 1,000 mg, Route: IVPB, [id number], 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, kg, Time Critical Medication, Start date: 08/25/15 20:00:00 CDT, Duration: 2 doses or times, Stop date: 08/26/15 8:00:00 CDT, Pharmacy to adjust dose for renal functionNotes: TIME CRITICAL MEDICATION (Same As: Vancocin) Infusion rate 2001 mg: infuse over 2.5 hours MEDICATION WASTE Product Size: 1000 mg Product Wasted: ___ mg No Longer Active 08/26/2015 [facility] Insulin, Aspart, Human 10 unit, 0.1 mL, Route: SUB-Q, Drug form: SOLN, TID-Before Meals, 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, kg, PRN Blood Glucose Results, Start date: 08/25/15 18:28:00 CDT, Duration: 30 day, Stop date: 09/24/15 18:27:00 CDTNotes: Roll in palms of hands gently; Do not shake vigorously. (Same as: NovoLOG) "single patient use only" WASTE: F/P - Black; E - Municipal Trash Bin Stable for 28 days at room temperature. Expires in days from Date No Longer Active 08/25/2015 [facility] Dextrose 50% Syringe 12.5 gm, 25 mL, Route: IVP, Drug Form: INJ, 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, kg, PRN, PRN Blood Glucose Results, Start date: 08/25/15 18:28:00 CDT, Duration: 30 day, Stop date: 09/24/15 18:27:00 CDT No Longer Active 08/25/2015 [facility] Glucagon 1 mg, Route: IM, Drug form: PDR/INJ, PRN, 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, kg, PRN Blood Glucose Results, Start date: 08/25/15 18:28:00 CDT, Duration: 30 day, Stop date: 09/24/15 18:27:00 CDT No Longer Active 08/25/2015 [facility] Docusate 100 mg, 1 cap, Route: PO, Drug form: CAP, BID, 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, kg, Start date: 08/25/15 17:00:00 CDT, Duration: 30 day, Stop date: 09/24/15 9:00:00 CDTNotes: (Same as: Colace) (Do Not Crush) No Longer Active 08/25/2015 [facility] Zofran 4 mg, 2 mL, Route: IV, Drug form: INJ, Q8H, 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, kg, Start date: 08/25/15 16:00:00 CDT, Duration: 3 doses or times, Stop date: 08/26/15 8:00:00 CDTNotes: (Same as: Zofran) MEDICATION WASTE Product Size: 4 mg Product Wasted: ___ mg No Longer Active 08/25/2015 [facility] Cyklokapron + Sodium Chloride 0.9% IV 90 mL 1,000 mg, 10 mL, Route: IVPB, ONCE, Start date: 08/25/15 16:00:00 CDT, Stop date: 08/25/15 16:00:00 CDTNotes: (Same As: Cyklokapron) Inactive 08/25/2015 [facility] ceFAZolin (SCIP) 1 gm, 100 mL, Route: IVPB, Drug form: INJ, [id number], 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, kg, Start date: 08/25/15 14:00:00 CDT, Duration: 3 doses or times, Stop date: 08/26/15 2:00:00 CDT No Longer Active 08/25/2015 [facility] glycopyrrolate (ANES) Route: IV, Drug form: INJ, ONCE, Stop date: 08/25/15 10:38:00 CDT Inactive 08/25/2015 [facility] neostigmine (ANES) Route: IV, Drug form: INJ, ONCE, Stop date: 08/25/15 10:38:00 CDT Inactive 08/25/2015 [facility] ondansetron (ANES) Route: IV, Drug form: INJ, ONCE, Stop date: 08/25/15 10:23:00 CDT Inactive 08/25/2015 [facility] Diphenhydramine 12.5 mg, 5 mL, Route: PO, Drug form: LIQ, Q6H, 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, kg, PRN Itching, Start date: 08/25/15 10:23:00 CDT, Duration: 30 day, Stop date: 09/24/15 10:22:00 CDTNotes: (Same as: Benadryl) No Longer Active 08/25/2015 [facility] Bisacodyl 10 mg, 1 supp, Route: LA, Drug form: SUPP, Daily, 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, kg, PRN Constipation, Start date: 08/25/15 10:23:00 CDT, Duration: 30 day, Stop date: 09/24/15 10:22:00 CDTNotes: (Same As: Dulcolax, Bisco-Lax) No Longer Active 08/25/2015 [facility] Dexamethasone 10 mg, 2.5 mL, Route: IV, Drug form: INJ, ONCE, 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, kg, Start date: 08/25/15 10:23:00 CDT, Stop date: 08/25/15 10:23:00 CDTNotes: Concentration: 4mg/ml Inactive 08/25/2015 [facility] Tranexamic Acid 1,000 mg, Route: IV, ONCE, 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, kg, Start date: 08/25/15 10:23:00 CDT, Stop date: 08/25/15 10:23:00 CDT Inactive 08/25/2015 [facility] Acetaminophen 325 MG / Hydrocodone Bitartrate 10 MG Oral Tablet [[place] 10/325] 1 tab, Route: PO, Drug Form: TAB, 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, kg, Q3H, PRN Pain Score 4-6, Start date: 08/25/15 10:23:00 CDT, Duration: 30 day, Stop date: 09/24/15 10:22:00 CDTNotes: Do not exceed 4gm/day of acetaminophen. (Same as: [place] 325/10) No Longer Active 08/25/2015 [facility] Zofran 4 mg, 2 mL, Route: IV, Drug form: INJ, Q6H, 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, kg, PRN Nausea, Start date: 08/25/15 10:23:00 CDT, Duration: 30 day, Stop date: 09/24/15 10:22:00 CDTNotes: (Same as: Zofran) MEDICATION WASTE Product Size: 4 mg Product Wasted: ___ mg No Longer Active 08/25/2015 [facility] Acetaminophen 325 MG / Hydrocodone Bitartrate 5 MG Oral Tablet [[place] 5/325] 1 tab, Route: PO, Drug Form: TAB, 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, kg, Q3H, PRN Pain Score 1-3, Start date: 08/25/15 10:23:00 CDT, Duration: 30 day, Stop date: 09/24/15 10:22:00 CDTNotes: (Same as: [place] 325/5) Do not exceed 4gm/day of acetaminophen. No Longer Active 08/25/2015 [facility] Acetaminophen 325 MG / Oxycodone Hydrochloride 10 MG Oral Tablet [Percocet 10/325] 1 tab, Route: PO, Drug Form: TAB, 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, kg, Q3H, PRN Pain Score 7-10, Start date: 08/25/15 10:23:00 CDT, Duration: 30 day, Stop date: 09/24/15 10:22:00 CDTNotes: Do not exceed 4gm/day of acetaminophen. (Same as: Percocet-10/325) No Longer Active 08/25/2015 [facility] Dilaudid 0.2 mg, 0.2 mL, Route: IVP, Drug form: INJ, Q3H, 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, kg, PRN Other -See Comment, Start date: 08/25/15 10:23:00 CDT, Duration: 30 day, Stop date: 09/24/15 10:22:00 CDT No Longer Active 08/25/2015 [facility] 1/2 NS 1,000 mL 1,000 mL, Rate: 75 ml/hr, Infuse over: 13.3 hr, Route: IV, 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 kg, Total Volume: 1,000, Start date: 08/25/15 10:23:00 CDT, Duration: 30 day, Stop date: 09/24/15 10:22:00 CDT No Longer Active 08/25/2015 [facility] tranexamic acid (ANES) Route: IV, Drug form: INJ, ONCE, Stop date: 08/25/15 10:23:00 CDT Inactive 08/25/2015 [facility] ePHEDrine (ANES) Route: IV, Drug form: INJ, ONCE, Stop date: 08/25/15 9:53:00 CDT Inactive 08/25/2015 [facility] fentaNYL (ANES) Route: IV, Drug form: INJ, ONCE, Stop date: 08/25/15 9:48:00 CDT Inactive 08/25/2015 [facility] vancomycin (ANES) Route: IV, Drug form: INJ, ONCE, Stop date: 08/25/15 9:03:00 CDT Inactive 08/25/2015 [facility] ceFAZolin (ANES) Route: IV, Drug form: INJ, ONCE, Stop date: 08/25/15 8:58:00 CDT Inactive 08/25/2015 [facility] hydromorphone (ANES) Route: IV, Drug form: INJ, ONCE, Stop date: 08/25/15 8:58:00 CDT Inactive 08/25/2015 [facility] propofol (ANES) Route: IV, Drug form: INJ, ONCE, Stop date: 08/25/15 8:58:00 CDT Inactive 08/25/2015 [facility] rocuronium (ANES) Route: IV, Drug form: INJ, ONCE, Stop date: 08/25/15 8:58:00 CDT Inactive 08/25/2015 [facility] lidocaine (ANES) Route: IV, Drug form: INJ, ONCE, Stop date: 08/25/15 8:58:00 CDT Inactive 08/25/2015 [facility] Glucose 50 MG/ML / Sodium Chloride 0.154 MEQ/ML Injectable Solution 1,000 mL, Rate: 25 ml/hr, Infuse over: 40 hr, Route: IV, 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 kg, Total Volume: 1,000, Start date: 08/25/15 7:51:00 CDT, Duration: 30 day, Stop date: 09/24/15 7:50:00 CDT Inactive 08/25/2015 [facility] Normosol-R 1,000 mL, Rate: 25 ml/hr, Infuse over: 40 hr, Route: IV, 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 kg, Total Volume: 1,000, Start date: 08/25/15 7:51:00 CDT, Duration: 30 day, Stop date: 09/24/15 7:50:00 CDT Inactive 08/25/2015 [facility] Calcium Chloride 0.0014 MEQ/ML / Potassium Chloride 0.004 MEQ/ML / Sodium Chloride 0.103 MEQ/ML / Sodium Lactate 0.028 MEQ/ML Injectable Solution 1,000 mL, Rate: 25 ml/hr, Infuse over: 40 hr, Route: IV, 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 kg, Total Volume: 1,000, Start date: 08/25/15 7:51:00 CDT, Duration: 30 day, Stop date: 09/24/15 7:50:00 CDT Inactive 08/25/2015 [facility] Sodium Chloride 0.154 MEQ/ML Injectable Solution 1,000 mL, Rate: 25 ml/hr, Infuse over: 40 hr, Route: IV, 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 kg, Total Volume: 1,000, Start date: 08/25/15 7:51:00 CDT, Duration: 30 day, Stop date: 09/24/15 7:50:00 CDT Inactive 08/25/2015 [facility] Lactated Ringers Injection IV (ANES) (ANES) Route: IV, Total Volume: 1,000, Start date: 08/25/15 7:46:00 CDT, Stop date: 08/25/15 8:46:00 CDT Inactive 08/25/2015 [facility] Vancomycin 1,250 mg, 250 mL, Route: IVPB, Drug form: INJ, ONCALL, 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, kg, Start date: 08/25/15 7:00:00 CDT, Duration: 30 day, Stop date: 09/24/15 6:59:00 CDTNotes: TIME CRITICAL MEDICATION Same as: Vancocin-NS (premixed) Infusion rate 2001 mg: infuse over 2.5 hours No Longer Active 08/25/2015 [facility] Cefazolin 2 gm, 100 mL, Route: IVPB, Drug form: INJ, ONCALL, 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, kg, Start date: 08/25/15 7:00:00 CDT, Duration: 1 day, Stop date: 08/26/15 6:59:00 CDTNotes: Same as: Ancef No Longer Active 08/25/2015 [facility] Tranexamic Acid 1,000 mg, 10 mL, Route: IV, ONCALL, 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, kg, Start date: 08/25/15 7:00:00 CDT, Duration: 1 day, Stop date: 08/26/15 6:59:00 CDTNotes: (Same As: Cyklokapron) No Longer Active 08/25/2015 [facility] Tylenol 1,000 mg, Route: PO, ONCALL, 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, kg, Start date: 08/25/15 7:00:00 CDT, Duration: 30 day, Stop date: 09/24/15 6:59:00 CDT Inactive 08/25/2015 [facility] Oxycontin 10 mg, Route: PO, Drug form: ERTAB, ONCALL, 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, kg, Start date: 08/25/15 7:00:00 CDT, Duration: 30 day, Stop date: 09/24/15 6:59:00 CDT Inactive 08/25/2015 [facility] ropivacaine 100 mL, Route: InFILtration(local), Drug Form: INJ, 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, kg, ONCALL, Start date: 08/25/15 7:00:00 CDT, Duration: 30 day, Stop date: 09/24/15 6:59:00 CDTNotes: NOT FOR IV use Ropivacaine 5 mg/mL (49.25 mL) Epinephrine 1 mg/mL (0.5 mL) Clonidine 0.1 mg/mL (0.8 mL) Ketorolac 30 mg/mL (1 mL) Normal Saline 48.45 mL No Longer Active 08/25/2015 [facility] celecoxib 200 mg, Route: PO, ONCALL, 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, kg, (for CrCl > 90 mL/min), Start date: 08/25/15 7:00:00 CDT, Duration: 30 day, Stop date: 09/24/15 6:59:00 CDT Inactive 08/25/2015 [facility] Aspirin Low Dose 81 mg oral tablet =1 tab, PO, Daily, # 100 tab, 3 Refill(s) No Longer Active 08/14/2015 [facility] tramadol hydrochloride 50 MG Oral Tablet 50 mg=1 tab, PO, BID, # 180 tab, 1 Refill(s) Active 08/14/2015 [facility] gabapentin 300 MG Oral Capsule 300 mg=1 cap, PO, TID, # 90 cap, 0 Refill(s) Active 08/14/2015 [facility] atorvastatin 40 mg oral tablet 40 mg=1 tab, PO, Bedtime, # 30 tab, 0 Refill(s) Active 08/14/2015 [facility] amLODIPine 5 mg oral tablet 5 mg=1 tab, PO, Daily, 1 tab at 6pm, # 90 tab, 0 Refill(s) Active 08/14/2015 [facility] 24 HR Metoprolol Tartrate 50 MG Extended Release Tablet [Toprol] 50 mg=1 tab, PO, BID, 1 tab at 2pm then 1 tab at 10pm, # 30 tab, 0 Refill(s) Active 08/14/2015 [facility] pantoprazole 40 mg oral enteric coated tablet 40 mg=1 tab, PO, Daily, # 30 tab, 0 Refill(s) Active 08/14/2015 [facility] Vitamin B12 1000 mcg oral tablet 1,000 microgram=1 tab, PO, Daily, # 30 tab, 0 Refill(s) Active 08/14/2015 [facility] Vitamin D3 1000 intl units oral tablet 1,000 IntlUnit=1 tab, PO, Daily, # 30 tab, 0 Refill(s) Active 08/14/2015 [facility] Calcium Carbonate 1500 MG / Cholecalciferol 800 UNT Oral Tablet 1 tab, PO, BID, 0 Refill(s) Active 08/14/2015 [facility] Vitamin C with Fiona Hips 500 mg oral capsule 500 mg=1 cap, PO, Daily, # 30 cap, 0 Refill(s) Active 08/14/2015 [facility] docusate sodium 100 mg oral capsule 100 mg=1 cap, PO, Daily, # 60 cap, 3 Refill(s) Active 08/14/2015 [facility] Fish Oil 1200 mg oral capsule 1,200 mg=1 cap, PO, TID, 0 Refill(s) Active 08/14/2015 [facility] multivitamin Daily, 0 Refill(s) Active 08/14/2015 [facility] Linagliptin 5 MG Oral Tablet [Tradjenta] 5 mg=1 tab, PO, Daily, # 30 tab, 3 Refill(s) Active 08/14/2015 [facility] 24 HR Metformin hydrochloride 1000 MG Extended Release Tablet 1,000 mg=1 tab, PO, BID, # 60 tab, 0 Refill(s) Active 08/14/2015 [facility] Hydrochlorothiazide 12.5 MG / Losartan Potassium 100 MG Oral Tablet 1 tab, PO, Daily, # 30 tab, 0 Refill(s) Active 08/14/2015 [facility] Amlodipine/Atorvastatin (Amlodipine-Atorvast 2.5-40 Mg) 1 Each Tablet Daily Active [facility] Ascorbic Acid (Vitamin C W/Fiona Hips) 500 Mg Tablet Daily Active [facility] Ascorbic Acid (Vitamin C) 500 Mg Tablet Daily Active [facility] Aspirin (Aspir 81) 81 Mg Tablet. Daily Active [facility] Calcium Carb & Lact/Vitamin D3 (Calcet Tablet) 1 Each Tablet Daily Active [facility] Cyanocobalamin (Vitamin B-12) 1,000 Mcg Tab Daily Active [facility] Docusate Sodium 100 Mg Capsule Daily Active [facility] Gabapentin 300 Mg Capsule Three Times A Day Active [facility] Linagliptin (Tradjenta) 5 Mg Tablet Daily Active [facility] Losartan/Hydrochlorothiazide (Losartan-Hctz 100-12.5 Mg Tab) 1 Each Tablet Daily Active [facility] Metformin Hcl 1,000 Mg Tablet Twice A Day Active [facility] Metoprolol Succinate (Toprol Xl) 50 Mg Tab.er.24h Twice A Day Active [facility] Multivitamins (Multivitamin) 1 Each Tablet Daily Active [facility] [place]-3/Dha/Epa/Fish Oil (Fish Oil 1,000 Mg Softgel) 1 Each Capsule Twice A Day [facility] Pantoprazole Sodium (Protonix) 40 Mg Tablet. Daily Active [facility] Tramadol Hcl (Ultram 50MG*) 50 Mg Tab Daily as needed for Pain Active [facility] Allergies, Adverse Reactions, Alerts Substance Category Reaction Severity Reaction type Status Date Reported Comments Source No Known Drug Allergies Unknown Allergy to Substance Active 04/14/2009 [facility] No Known Medication Allergies Assertion Drug allergy SONIA Gallegos Immunizations No Data Provided for This Section Results Order Name Results Value Reference Range Date Interpretation Comments Source ELECTROLYTES AGAP 13.2 10.0 - 20.0 01/27/2016 [facility] ELECTROLYTES Calcium Lvl 8.1 8.5 - 10.5 01/27/2016 [facility] ELECTROLYTES CO2 26 24 - 32 01/27/2016 [facility] ELECTROLYTES eGFR 95 01/27/2016 Result Comment: The eGFR is calculated using the CKD-EPI formula. In most young, healthy individuals the eGFR will be >90 mL/min/1.73m2. The eGFR declines with age. An eGFR of 60-89 may be normal in some populations, particularly the elderly, for whom the CKD-EPI formula has not been extensively validated. Use of the eGFR is not recommended in the following populations:

Individuals with unstable creatinine concentrations, including patients and those with serious co-morbid conditions.

Patients with extremes in muscle mass or diet.

The data above are obtained from the National Kidney Disease Education Program (NKDEP) which additionally recommends that when the eGFR is used in patients with extremes of body mass index for purposes of drug dosing, the eGFR should be multiplied by the estimated BMI. [facility] ELECTROLYTES Chloride Lvl 99 95 - 109 01/27/2016 [facility] ELECTROLYTES Potassium Lvl 4.2 3.5 - 5.1 01/27/2016 [facility] ELECTROLYTES Sodium Lvl 134 135 - 145 01/27/2016 [facility] ELECTROLYTES Creatinine Lvl 0.62 0.50 - 1.40 01/27/2016 [facility] ELECTROLYTES Glucose Lvl 116 70 - 99 01/27/2016 [facility] ELECTROLYTES BUN 16 7 - 22 01/27/2016 [facility] Hct 26.2 36.0 - 48.0 01/27/2016 [facility] RBC 3.11 4.20 - 5.40 01/27/2016 [facility] WBC 9.9 3.7 - 10.4 01/27/2016 [facility] Hgb 9.1 12.0 - 16.0 01/27/2016 [facility] MPV 6.8 7.4 - 10.4 01/27/2016 [facility] MCV 84.5 80.0 - 98.0 01/27/2016 [facility] MCH 29.4 27.0 - 31.0 01/27/2016 [facility] MCHC 34.8 32.0 - 36.0 01/27/2016 [facility] Platelet 313 133 - 450 01/27/2016 [facility] RDW 14.3 11.5 - 14.5 01/27/2016 [facility] HEMATOLOGY Eosinophils # 0.1 0.0 - 0.5 01/27/2016 [facility] HEMATOLOGY Monocytes # 1.1 0.0 - 0.8 01/27/2016 [facility] HEMATOLOGY Segs 71.6 45.0 - 75.0 01/27/2016 [facility] HEMATOLOGY Basophils 0.7 0.0 - 1.0 01/27/2016 [facility] HEMATOLOGY Lymphocytes # 1.5 1.0 - 5.5 01/27/2016 [facility] Segs-Bands # 7.1 1.5 - 8.1 01/27/2016 [facility] Basophils # 0.1 0.0 - 0.2 01/27/2016 [facility] HEMATOLOGY Lymphocytes 15.1 20.0 - 40.0 01/27/2016 [facility] HEMATOLOGY Eosinophils 1.3 0.0 - 4.0 01/27/2016 [facility] Monocytes 11.3 2.0 - 12.0 01/27/2016 [facility] CHEM PANEL eGFR 79 01/26/2016 Result Comment: The eGFR is calculated using the CKD-EPI formula. In most young, healthy individuals the eGFR will be >90 mL/min/1.73m2. The eGFR declines with age. An eGFR of 60-89 may be normal in some populations, particularly the elderly, for whom the CKD-EPI formula has not been extensively validated. Use of the eGFR is not recommended in the following populations:

Individuals with unstable creatinine concentrations, including patients and those with serious co-morbid conditions.

Patients with extremes in muscle mass or diet.

The data above are obtained from the National Kidney Disease Education Program (NKDEP) which additionally recommends that when the eGFR is used in patients with extremes of body mass index for purposes of drug dosing, the eGFR should be multiplied by the estimated BMI. [facility] CHEM PANEL Creatinine Lvl 0.79 0.50 - 1.40 01/26/2016 [facility] HEMATOLOGY Platelet 420 133 - 450 01/26/2016 [facility] HEMATOLOGY PTT 29.8 22.9 - 35.8 01/26/2016 [facility] HEMATOLOGY PT 14.0 12.0 - 14.7 01/26/2016 [facility] HEMATOLOGY INR 1.05 0.85 - 1.17 01/26/2016 [facility] BACTERIAL - SEROLOGY MRSA by PCR Negative (01/08/16 12:49 PM) 01/08/2016 [facility] BLOOD BANK RESULTS Antibody Scrn Negative (01/08/16 12:49 PM) 01/08/2016 [facility] BLOOD BANK RESULTS ABO/Rh A POS 01/08/2016 [facility] CHEM PANEL Globulin 4.1 2.7 - 4.2 01/08/2016 [facility] CHEM PANEL B/C Ratio 27 6 - 25 01/08/2016 [facility] CHEM PANEL AGAP 10.5 10.0 - 20.0 01/08/2016 [facility] CHEM PANEL A/G Ratio 1.0 0.7 - 1.6 01/08/2016 [facility] CHEM PANEL eGFR 95 01/08/2016 Result Comment: The eGFR is calculated using the CKD-EPI formula. In most young, healthy individuals the eGFR will be >90 mL/min/1.73m2. The eGFR declines with age. An eGFR of 60-89 may be normal in some populations, particularly the elderly, for whom the CKD-EPI formula has not been extensively validated. Use of the eGFR is not recommended in the following populations:

Individuals with unstable creatinine concentrations, including patients and those with serious co-morbid conditions.

Patients with extremes in muscle mass or diet.

The data above are obtained from the National Kidney Disease Education Program (NKDEP) which additionally recommends that when the eGFR is used in patients with extremes of body mass index for purposes of drug dosing, the eGFR should be multiplied by the estimated BMI. [facility] CHEM PANEL Bili Total 0.4 0.2 - 1.3 01/08/2016 [facility] CHEM PANEL AST 15 0 - 37 01/08/2016 [facility] CHEM PANEL Alk Phos 61 39 - 136 01/08/2016 [facility] CHEM PANEL CO2 30 24 - 32 01/08/2016 [facility] CHEM PANEL Chloride Lvl 101 95 - 109 01/08/2016 [facility] CHEM PANEL Potassium Lvl 3.5 3.5 - 5.1 01/08/2016 [facility] CHEM PANEL Total Protein 8.2 6.4 - 8.4 01/08/2016 [facility] CHEM PANEL Calcium Lvl 9.0 8.5 - 10.5 01/08/2016 [facility] CHEM PANEL Albumin Lvl 4.1 3.5 - 5.0 01/08/2016 [facility] CHEM PANEL ALT 14 0 - 65 01/08/2016 [facility] CHEM PANEL Glucose Lvl 112 70 - 99 01/08/2016 [facility] CHEM PANEL Creatinine Lvl 0.60 0.50 - 1.40 01/08/2016 [facility] CHEM PANEL Sodium Lvl 138 135 - 145 01/08/2016 [facility] CHEM PANEL BUN 16 7 - 22 01/08/2016 [facility] HEMATOLOGY PTT 27.3 22.9 - 35.8 01/08/2016 [facility] HEMATOLOGY PT 12.5 12.0 - 14.7 01/08/2016 [facility] HEMATOLOGY INR 0.90 0.85 - 1.17 01/08/2016 [facility] HEMATOLOGY Segs-Bands # 5.8 1.5 - 8.1 01/08/2016 [facility] HEMATOLOGY Lymphocytes # 2.1 1.0 - 5.5 01/08/2016 [facility] HEMATOLOGY Basophils # 0.1 0.0 - 0.2 01/08/2016 [facility] HEMATOLOGY Lymphocytes 23.3 20.0 - 40.0 01/08/2016 [facility] HEMATOLOGY Monocytes 9.4 2.0 - 12.0 01/08/2016 [facility] HEMATOLOGY Segs 64.1 45.0 - 75.0 01/08/2016 [facility] HEMATOLOGY Eosinophils 2.2 0.0 - 4.0 01/08/2016 [facility] HEMATOLOGY Basophils 1.0 0.0 - 1.0 01/08/2016 [facility] HEMATOLOGY Monocytes # 0.8 0.0 - 0.8 01/08/2016 [facility] HEMATOLOGY Eosinophils # 0.2 0.0 - 0.5 01/08/2016 [facility] HEMATOLOGY MCH 28.3 27.0 - 31.0 01/08/2016 [facility] MCHC 33.5 32.0 - 36.0 01/08/2016 [facility] HEMATOLOGY Platelet 288 133 - 450 01/08/2016 [facility] HEMATOLOGY MPV 7.4 7.4 - 10.4 01/08/2016 [facility] HEMATOLOGY RDW 14.9 11.5 - 14.5 01/08/2016 [facility] HEMATOLOGY Hct 36.3 36.0 - 48.0 01/08/2016 [facility] HEMATOLOGY MCV 84.5 80.0 - 98.0 01/08/2016 [facility] HEMATOLOGY RBC 4.30 4.20 - 5.40 01/08/2016 [facility] HEMATOLOGY Hgb 12.2 12.0 - 16.0 01/08/2016 [facility] HEMATOLOGY WBC 9.1 3.7 - 10.4 01/08/2016 [facility] URINE AND STOOL UA Mucus Few /LPF None Seen /LPF 01/08/2016 [facility] URINE AND STOOL UA RBC 2 0 - 2 01/08/2016 [facility] URINE AND STOOL UA WBC 3 0 - 5 01/08/2016 [facility] URINE AND STOOL UA Leuk Est Trace *ABN* (01/08/16 12:49 PM) Negative 01/08/2016 [facility] URINE AND STOOL UA Sq Epi Occasional /LPF Few /LPF 01/08/2016 [facility] URINE AND STOOL UA Urobilinogen <=1.0 mg/dL 0.1 - 1.0 01/08/2016 [facility] URINE AND STOOL UA Hyal Cast 3 0 - 2 01/08/2016 [facility] URINE AND STOOL UA Nitrite Negative (01/08/16 12:49 PM) Negative 01/08/2016 [facility] URINE AND STOOL UA Ketones Negative mg/dL Negative mg/dL 01/08/2016 [facility] URINE AND STOOL UA Bili Negative *NA* (01/08/16 12:49 PM) Negative 01/08/2016 [facility] URINE AND STOOL UA Blood Negative (01/08/16 12:49 PM) Negative 01/08/2016 [facility] URINE AND STOOL UA Protein Negative mg/dL Negative mg/dL 01/08/2016 [facility] URINE AND STOOL UA Glucose Negative mg/dL Negative mg/dL 01/08/2016 [facility] URINE AND STOOL UA Turbidity Clear (01/08/16 12:49 PM) Clear 01/08/2016 [facility] URINE AND STOOL UA Spec Grav 1.024 <=1.030 01/08/2016 [facility] URINE AND STOOL UA pH 5.0 5.0 - 8.0 01/08/2016 [facility] URINE AND STOOL UA Color Yellow *NA* (01/08/16 12:49 PM) Yellow 01/08/2016 [facility] CHEM PANEL Magnesium Lvl 1.5 1.8 - 2.4 08/27/2015 [facility] CHEM PANEL eGFR 105 08/27/2015 Result Comment: The eGFR is calculated using the CKD-EPI formula. In most young, healthy individuals the eGFR will be >90 mL/min/1.73m2. The eGFR declines with age. An eGFR of 60-89 may be normal in some populations, particularly the elderly, for whom the CKD-EPI formula has not been extensively validated. Use of the eGFR is not recommended in the following populations:

Individuals with unstable creatinine concentrations, including patients and those with serious co-morbid conditions.

Patients with extremes in muscle mass or diet.

The data above are obtained from the National Kidney Disease Education Program (NKDEP) which additionally recommends that when the eGFR is used in patients with extremes of body mass index for purposes of drug dosing, the eGFR should be multiplied by the estimated BMI. [facility] CHEM PANEL Creatinine Lvl 0.45 0.50 - 1.40 08/27/2015 [facility] CHEM PANEL BUN 11 7 - 22 08/27/2015 [facility] CHEM PANEL Glucose Lvl 111 70 - 99 08/27/2015 [facility] CHEM PANEL AGAP 11.6 10.0 - 20.0 08/27/2015 [facility] CHEM PANEL Calcium Lvl 8.4 8.5 - 10.5 08/27/2015 [facility] CHEM PANEL CO2 30 24 - 32 08/27/2015 [facility] CHEM PANEL Chloride Lvl 102 95 - 109 08/27/2015 [facility] CHEM PANEL Potassium Lvl 3.6 3.5 - 5.1 08/27/2015 [facility] CHEM PANEL Sodium Lvl 140 135 - 145 08/27/2015 [facility] HEMATOLOGY Hgb 10.1 12.0 - 16.0 08/27/2015 [facility] MCH 30.1 27.0 - 31.0 08/27/2015 [facility] HEMATOLOGY MCV 89.6 80.0 - 98.0 08/27/2015 [facility] HEMATOLOGY Hct 30.1 36.0 - 48.0 08/27/2015 [facility] HEMATOLOGY MCHC 33.6 32.0 - 36.0 08/27/2015 [facility] HEMATOLOGY WBC 13.4 3.7 - 10.4 08/27/2015 [facility] HEMATOLOGY RBC 3.36 4.20 - 5.40 08/27/2015 [facility] HEMATOLOGY MPV 7.8 7.4 - 10.4 08/27/2015 [facility] Platelet 293 133 - 450 08/27/2015 [facility] RDW 13.5 11.5 - 14.5 08/27/2015 [facility] HEMATOLOGY Bands 1.0 0.0 - 11.0 08/27/2015 [facility] HEMATOLOGY Segs 68.0 45.0 - 75.0 08/27/2015 [facility] Eosinophils # 0.1 0.0 - 0.5 08/27/2015 [facility] Monocytes # 0.4 0.0 - 0.8 08/27/2015 [facility] Basophils # 0.1 0.0 - 0.2 08/27/2015 [facility] RBC Morph Normal (08/27/15 4:43 AM) 08/27/2015 [facility] Atypical Lymphs 0.0 <=0.0 % 08/27/2015 [facility] Monocytes 3.0 2.0 - 12.0 08/27/2015 [facility] Lymphocytes 26.0 20.0 - 40.0 08/27/2015 [facility] Eosinophils 1.0 0.0 - 4.0 08/27/2015 [facility] Tot Cell Ct 100 08/27/2015 [facility] Plt Morph Normal (08/27/15 4:43 AM) 08/27/2015 [facility] Basophils 1.0 0.0 - 1.0 08/27/2015 [facility] Lymphocytes # 3.5 1.0 - 5.5 08/27/2015 [facility] Segs-Bands # 9.2 1.5 - 8.1 08/27/2015 [facility] CHEM PANEL eGFR 95 08/26/2015 Result Comment: The eGFR is calculated using the CKD-EPI formula. In most young, healthy individuals the eGFR will be >90 mL/min/1.73m2. The eGFR declines with age. An eGFR of 60-89 may be normal in some populations, particularly the elderly, for whom the CKD-EPI formula has not been extensively validated. Use of the eGFR is not recommended in the following populations:

Individuals with unstable creatinine concentrations, including patients and those with serious co-morbid conditions.

Patients with extremes in muscle mass or diet.

The data above are obtained from the National Kidney Disease Education Program (NKDEP) which additionally recommends that when the eGFR is used in patients with extremes of body mass index for purposes of drug dosing, the eGFR should be multiplied by the estimated BMI. [facility] CHEM PANEL Calcium Lvl 8.3 8.5 - 10.5 08/26/2015 [facility] CHEM PANEL Chloride Lvl 101 95 - 109 08/26/2015 [facility] CHEM PANEL CO2 30 24 - 32 08/26/2015 [facility] CHEM PANEL Potassium Lvl 3.4 3.5 - 5.1 08/26/2015 [facility] CHEM PANEL Sodium Lvl 137 135 - 145 08/26/2015 [facility] CHEM PANEL Creatinine Lvl 0.61 0.50 - 1.40 08/26/2015 [facility] CHEM PANEL BUN 10 7 - 22 08/26/2015 [facility] CHEM PANEL Glucose Lvl 128 70 - 99 08/26/2015 [facility] CHEM PANEL AGAP 9.4 10.0 - 20.0 08/26/2015 [facility] HEMATOLOGY INR 1.17 0.85 - 1.17 08/26/2015 [facility] HEMATOLOGY PT 15.2 12.0 - 14.7 08/26/2015 [facility] HEMATOLOGY PTT 28.5 22.9 - 35.8 08/26/2015 [facility] HEMATOLOGY Segs-Bands # 9.3 1.5 - 8.1 08/26/2015 [facility] HEMATOLOGY Lymphocytes # 1.3 1.0 - 5.5 08/26/2015 [facility] HEMATOLOGY Monocytes # 1.2 0.0 - 0.8 08/26/2015 [facility] HEMATOLOGY Monocytes 10.3 2.0 - 12.0 08/26/2015 [facility] HEMATOLOGY Basophils 0.4 0.0 - 1.0 08/26/2015 [facility] HEMATOLOGY Segs 78.5 45.0 - 75.0 08/26/2015 [facility] HEMATOLOGY Lymphocytes 10.8 20.0 - 40.0 08/26/2015 [facility] HEMATOLOGY RBC 3.30 4.20 - 5.40 08/26/2015 [facility] HEMATOLOGY Hgb 9.9 12.0 - 16.0 08/26/2015 [facility] HEMATOLOGY WBC 11.8 3.7 - 10.4 08/26/2015 [facility] HEMATOLOGY Hct 29.7 36.0 - 48.0 08/26/2015 [facility] HEMATOLOGY MCV 89.9 80.0 - 98.0 08/26/2015 [facility] HEMATOLOGY Platelet 264 133 - 450 08/26/2015 [facility] HEMATOLOGY RDW 13.4 11.5 - 14.5 08/26/2015 [facility] HEMATOLOGY MCH 30.1 27.0 - 31.0 08/26/2015 [facility] HEMATOLOGY MPV 7.9 7.4 - 10.4 08/26/2015 [facility] HEMATOLOGY MCHC 33.5 32.0 - 36.0 08/26/2015 [facility] BLOOD BANK RESULTS Antibody Scrn Negative (08/25/15 6:37 AM) 08/25/2015 [facility] BLOOD BANK RESULTS ABO/Rh A POS 08/25/2015 [facility] SPECIAL CHEMISTRY Hgb A1C 6.1 <=5.6 % 08/14/2015 [facility] URINE AND STOOL UA Urobilinogen <=1.0 mg/dL 0.1 - 1.0 08/14/2015 [facility] URINE AND STOOL UA Color Ltyellow 08/14/2015 [facility] URINE AND STOOL UA RBC 1 0 - 2 08/14/2015 [facility] URINE AND STOOL UA WBC 1 0 - 5 08/14/2015 [facility] URINE AND STOOL UA Sq Epi Occasional /LPF Few /LPF 08/14/2015 [facility] URINE AND STOOL UA Leuk Est Negative (08/14/15 12:51 PM) Negative 08/14/2015 [facility] URINE AND STOOL UA Blood Negative (08/14/15 12:51 PM) Negative 08/14/2015 [facility] URINE AND STOOL UA Nitrite Negative (08/14/15 12:51 PM) Negative 08/14/2015 [facility] URINE AND STOOL UA Ketones Negative mg/dL Negative mg/dL 08/14/2015 [facility] URINE AND STOOL UA Bili Negative *NA* (08/14/15 12:51 PM) Negative 08/14/2015 [facility] URINE AND STOOL UA Protein Negative mg/dL Negative mg/dL 08/14/2015 [facility] URINE AND STOOL UA Glucose Negative mg/dL Negative mg/dL 08/14/2015 [facility] URINE AND STOOL UA Spec Grav 1.008 <=1.030 08/14/2015 [facility] URINE AND STOOL UA pH 7.0 5.0 - 8.0 08/14/2015 [facility] URINE AND STOOL UA Turbidity Clear (08/14/15 12:51 PM) Clear 08/14/2015 [facility] BACTERIAL - SEROLOGY MRSA by PCR Negative (08/14/15 12:50 PM) 08/14/2015 [facility] BLOOD BANK RESULTS ABO/Rh A POS 08/14/2015 [facility] BLOOD BANK RESULTS Antibody Scrn Negative (08/14/15 12:50 PM) 08/14/2015 [facility] CHEM PANEL eGFR 98 08/14/2015 Result Comment: The eGFR is calculated using the CKD-EPI formula. In most young, healthy individuals the eGFR will be >90 mL/min/1.73m2. The eGFR declines with age. An eGFR of 60-89 may be normal in some populations, particularly the elderly, for whom the CKD-EPI formula has not been extensively validated. Use of the eGFR is not recommended in the following populations:

Individuals with unstable creatinine concentrations, including patients and those with serious co-morbid conditions.

Patients with extremes in muscle mass or diet.

The data above are obtained from the National Kidney Disease Education Program (NKDEP) which additionally recommends that when the eGFR is used in patients with extremes of body mass index for purposes of drug dosing, the eGFR should be multiplied by the estimated BMI. [facility] CHEM PANEL Chloride Lvl 97 95 - 109 08/14/2015 [facility] CHEM PANEL Potassium Lvl 3.8 3.5 - 5.1 08/14/2015 [facility] CHEM PANEL Sodium Lvl 135 135 - 145 08/14/2015 [facility] CHEM PANEL Creatinine Lvl 0.56 0.50 - 1.40 08/14/2015 [facility] CHEM PANEL BUN 12 7 - 22 08/14/2015 [facility] CHEM PANEL Glucose Lvl 108 70 - 99 08/14/2015 [facility] CHEM PANEL Calcium Lvl 9.8 8.5 - 10.5 08/14/2015 [facility] CHEM PANEL CO2 31 24 - 32 08/14/2015 [facility] CHEM PANEL AGAP 10.8 10.0 - 20.0 08/14/2015 [facility] HEMATOLOGY PT 13.5 12.0 - 14.7 08/14/2015 [facility] HEMATOLOGY INR 1.00 0.85 - 1.17 08/14/2015 [facility] HEMATOLOGY PTT 28.7 22.9 - 35.8 08/14/2015 [facility] HEMATOLOGY Platelet 342 133 - 450 08/14/2015 [facility] HEMATOLOGY RDW 13.6 11.5 - 14.5 08/14/2015 [facility] HEMATOLOGY MPV 7.3 7.4 - 10.4 08/14/2015 [facility] HEMATOLOGY MCHC 33.9 32.0 - 36.0 08/14/2015 [facility] MCH 30.3 27.0 - 31.0 08/14/2015 [facility] HEMATOLOGY MCV 89.4 80.0 - 98.0 08/14/2015 [facility] HEMATOLOGY Hct 37.4 36.0 - 48.0 08/14/2015 [facility] RBC 4.19 4.20 - 5.40 08/14/2015 [facility] Hgb 12.7 12.0 - 16.0 08/14/2015 [facility] WBC 8.2 3.7 - 10.4 08/14/2015 [facility] Basophils # 0.1 0.0 - 0.2 08/14/2015 [facility] Eosinophils # 0.1 0.0 - 0.5 08/14/2015 [facility] Monocytes # 0.6 0.0 - 0.8 08/14/2015 [facility] Lymphocytes 28.9 20.0 - 40.0 08/14/2015 [facility] Segs 61.6 45.0 - 75.0 08/14/2015 [facility] Lymphocytes # 2.4 1.0 - 5.5 08/14/2015 [facility] Segs-Bands # 5.0 1.5 - 8.1 08/14/2015 [facility] Basophils 1.0 0.0 - 1.0 08/14/2015 [facility] Monocytes 7.3 2.0 - 12.0 08/14/2015 [facility] Eosinophils 1.2 0.0 - 4.0 08/14/2015 [facility] Pathology Reports No Data Provided for This Section Diagnostic Reports Report Value Date Source Breast Mammo Scrn HARRIETT incl CAD MA BILATERAL DIGITAL SCREENING MAMMOGRAM WITH CAD: 04/24/2018 CLINICAL: Encounter For Screening Mammogram For Malignant Neoplasm Of Breast/Z12.31. Current study was evaluated with a Computer Aided Detection (CAD) system. COMPARISON:Comparison is made to exams dated: 11/12/2015 mammogram, 10/21/2014 mammogram, and 11/12/2010 mammogram - [facility]. TECHNIQUE: Mammographic views were obtained using digital acquisition. Current study was also evaluated with a Computer Aided Detection (CAD) system. FINDINGS: The tissue of both breasts is heterogeneously dense, which could obscure detection of small masses. There are benign appearing vascular calcifications and calcifications in both breasts. No significant masses, calcifications, or other findings are seen in either breast. There has been no significant interval change. IMPRESSION: BENIGN RECOMMENDATION:There is no mammographic evidence of malignancy. A 1 year screening mammogram is recommended.(04/25/2019) This exam was interpreted at [id number] for B[facility] Gallegos 15. Professional services are provided by the [facility]. Joanne Bee M.D. ms/ramirez:05/11/2018 08:27:50 Piano Stringer(s): Louisa Gomez RT(R)(M), [facility] letter sent: BI-RADS 1/2 Dense Mammogram BI-RADS: 2 Benign 04/24/2018 [facility] Spine lumbar series DX EXAM: XR LUMBAR SPINE 5 VIEWS DATE: 04/28/2017 at 0933 hours. INDICATION: Radiating leg pain COMPARISON: Lumbar spine magnetic resonance imaging dated 05/15/2012. TECHNIQUE: AP, lateral, coned lateral, LPO and RPO radiographs of the lumbar spine FINDINGS: 5 nonrib bearing, lumbar-type vertebral bodies are present. Vertebral body heights are preserved. There is multilevel degenerative disc height loss throughout the lumbar spine, severe at L4-5 and moderate at L3-4. Multilevel marginal and anterior osteophyte, as well as multilevel moderate to severe bilateral facet arthrosis is noted, worse at L4-5 and L5-S1. There is no evidence of spondylolysis. There is minimal retrolisthesis of L1 on L2, and mild dextroscoliosis of the thoracolumbar spine centered at L1. Surgical clips are noted. Crescentic soft calcification seen in the right lumbar region, not well visualized on the lateral radiograph. No soft tissue abnormality is identified. IMPRESSION: Multilevel degenerative changes of the lumbar spine with severe disc height loss at L4-5 and moderate disc height loss at L3-4. Mild retrolisthesis of L1 on L2, similar in appearance compared to the prior MR dated 05/15/2012 when accounting for differences in technique. 04/28/2017 [facility] Hip 2/3 views uni w pelvis DX EXAM: XR LEFT HIP 3 VIEW DATE: 04/28/2017 at 0943 hours. INDICATION: - M79.605 Pain in left leg COMPARISON: None. TECHNIQUE: 3 views of the hip including the pelvis FINDINGS: No acute fracture or malalignment is identified. There are bilateral hip osteophytes, with mild medial joint space narrowing of the bilateral hip joints and subchondral sclerosis. Severe degenerative changes of the lower lumbar spine. No soft tissue abnormality is identified. IMPRESSION: 1. No acute fracture or malalignment seen. If there is a persistent clinical concern MRI of the left hip may be considered. 2. Mild bilateral hip osteoarthrosis. 04/28/2017 [facility] Knee 1-2 Views unilateral DX Patient Name: HERNANDO GREEN : 1950; Age: 65 years y/o Female MR: [id number] * LEFT KNEE, postoperative 2 views HISTORY: Left knee arthritis, status post left knee arthroplasty. Technique: Frontal and lateral radiographs of the left knee were obtained. FINDINGS: The left total knee prosthesis is in good position. There is no evidence of unexpected fracture or other complication. There is postoperative soft tissue gas. There are anterior surgical skin valentina. IMPRESSION: 1. Status post left knee arthroplasty. The prosthesis is in good position without evidence of complication. SL: [id number] 01/26/2016 [facility] Chest 2 views DX Chest 2 views DX CLINICAL HISTORY: Coughing COMPARISON: 08/14/2015 FINDINGS: LUNGS: Mild pulmonary underinflation. Linear scarring in the left midlung, unchanged. No consolidation or any significant effusion. No pneumothorax is evident. CARDIOVASCULAR: Cardiac silhouette size is normal. Pulmonary vasculature is within normal limits. MEDIASTINUM/JIM: Trachea is midline. No contour abnormality is noted. OSSEOUS STRUCTURES: Extensive thoracic spondylosis. SOFT TISSUES: No significant soft tissue abnormality is noted. IMPRESSION: No acute abnormality is noted in the chest. SL: [id number] 01/08/2016 [facility] Hand 2 views Bilateral DX EXAM: XR BILATERAL HAND 2 VIEWS DATE: 01/06/2016 11:56 AM CDT INDICATION: M25.642 Stiffness of left hand, not elsewhere classified COMPARISON: None TECHNIQUE: PA and lateral radiographs of the bilateral hands. FINDINGS: No acute fracture or malalignment is identified. Joint spaces and bone mineral density are preserved. Incidental capsular calcification is seen involving the PIP joints of the right ring finger on the left index finger DIP joint. No soft tissue abnormality is identified. IMPRESSION: No acute bony abnormality. No radiographic evidence of polyarticular inflammatory arthropathy. 01/06/2016 [facility] Knee 1-2 Views unilateral DX Study: Right knee, 2 views Clinical Indication: Arthritis, right knee pain Comparison: None FINDINGS: 2 views of the right knee show postoperative changes of total knee arthroplasty and patellar resurfacing with overlying soft tissue swelling and soft tissue gas. Anatomic alignment is maintained across the knee. Fixation screw in the tibial tuberosity is also seen. IMPRESSION: Status post right total knee arthroplasty. SL: [id number] 08/25/2015 [facility] Chest 2 views DX Patient Name: HERNANDO GREEN : 1950; Age: 65 years y/o Female MR: [id number] * CHEST, 2 views HISTORY: ; Coughing; COMPARISON: None TECHNIQUE: Frontal and lateral radiographs of the chest were obtained. FINDINGS: The lungs are clear. There is minimal linear scarring in the left midlung. There are no pleural effusions. The heart and pulmonary vasculature are within normal limits. There is mild hypertrophic spondylosis. The regional skeleton is otherwise unremarkable. IMPRESSION: 1. No active disease. SL: [id number] 08/14/2015 [facility] Knee 4+ views unilateral EXAM: XR LEFT KNEE 4 VIEWS DATE: 2013-10-11 10:39:00 INDICATION: 719.46 Pain in Joint Involving Lower Leg COMPARISON: Bilateral knee series 09/07/2012. TECHNIQUE: Bilateral weight-bearing AP, AP, sunrise and lateral radiographs of the left knee. FINDINGS: No fracture, dislocation or other acute bony abnormality is identified. Severe bilateral medial compartment narrowing and mild subarticular sclerosis is present. Bilateral tricompartmental osteophytosis is present. There is no knee joint effusion. No soft tissue abnormality is identified. IMPRESSION: Unchanged severe bilateral tricompartmental osteoarthrosis, most severe in the medial compartments. 10/11/2013 [facility] Bone length scanogram EXAM: XR LIMB LENGTH SCANOGRAM 1 VIEW DATE: 10/11/2013 at 1026 hours INDICATION: 719.46 Pain in Joint Involving Lower Leg. COMPARISON: Bone length Haney 09/07/2012 at 1323 hours TECHNIQUE: Full length weight bearing AP radiographic examination of bilateral lower limbs, from hips to ankles. DISCUSSION: Distance of weight bearing axis (measured from center of femoral head to midpoint of tibial plafond) to the center of knee joint: Right knee=1.92 cm Left knee=2.71 cm Genu angulation: Right knee varus=6.0 degrees Left knee varus=7.0 degrees IMPRESSION: Full length imaging of the lower limbs for prejoint replacement measurements are as listed above. 10/11/2013 [facility] Knee 4+ views bilat EXAM: BILATERAL KNEE 4 VIEWS DATE: September 07, 2012 01:28:00 PM INDICATION: pain COMPARISON: None available TECHNIQUE: Weight-bearing AP, weight-bearing PA, sunrise and lateral radiographs of both knees FINDINGS: No fracture, dislocation or other acute bony abnormality is identified. There is bilateral severe medial compartment narrowing and mild subarticular sclerosis. Bilateral large tricompartmental osteophytes are present. Trace amount of knee joint fluid is present on the left. IMPRESSION: Bilateral severe tricompartmental osteoarthrosis, worst in the medial compartments. 09/07/2012 [facility] Bone length scanogram EXAM: LIMB LENGTH SCANOGRAM 1 VIEW DATA: PRE - JOINT REPLACEMENT FULL LENGTH LOWER LIMB ASSESSMENT DATE: Order Observation End Time: September 07, 2012 01:28:00 PM INDICATION: pain . Pain . COMPARISON: None TECHNIQUE: Full length weight bearing AP radiographic examination of bilateral lower limbs , from hips to ankles. FINDINGS: Distance of weight bearing axis ( measured from center of femoral head to midpoint of tibial plafond) to the center of knee joint : Right knee=2.7 cms Left knee=3.4 cms. Genu angulation : RIGHT KNEE Varus=1 degree. LEFT KNEE Varus=2 degrees IMPRESSION: Full length imaging of the lower limbs with measurements as listed above. 09/07/2012 [facility] Consultation Notes No Data Provided for This Section Discharge Summaries No Data Provided for This Section History and Physicals No Data Provided for This Section Vital Signs Vital Sign Value Date Comments Source Respitory Rate 16 01/27/2016 [facility] Heart Rate 93 01/27/2016 [facility] Temperature Oral (F) 98 F 01/27/2016 [facility] Systolic (mm Hg) 103 01/27/2016 [facility] Diastolic (mm Hg) 63 01/27/2016 [facility] Heart Rate 96 01/27/2016 [facility] Systolic (mm Hg) 125 01/27/2016 [facility] Diastolic (mm Hg) 74 01/27/2016 [facility] Temperature Oral (F) 98.3 F 01/27/2016 [facility] Systolic (mm Hg) 110 01/27/2016 [facility] Diastolic (mm Hg) 68 01/27/2016 [facility] Heart Rate 91 01/27/2016 [facility] Respitory Rate 16 01/27/2016 [facility] Respitory Rate 18 01/27/2016 [facility] Temperature Oral (F) 97.9 F 01/27/2016 [facility] Height 162.56 cm 01/08/2016 [facility] BMI Calculated 33.54 01/08/2016 [facility] Weight 88.636 01/08/2016 [facility] Respitory Rate 18 08/27/2015 [facility] Heart Rate 86 08/27/2015 [facility] Systolic (mm Hg) 119 08/27/2015 [facility] Diastolic (mm Hg) 74 08/27/2015 [facility] Temperature Oral (F) 97.7 F 08/27/2015 [facility] Respitory Rate 18 08/27/2015 [facility] Heart Rate 83 08/27/2015 [facility] Temperature Oral (F) 98.1 F 08/27/2015 [facility] Systolic (mm Hg) 121 08/27/2015 [facility] Diastolic (mm Hg) 68 08/27/2015 [facility] Respitory Rate 16 08/27/2015 [facility] Temperature Oral (F) 97.4 F 08/27/2015 [facility] Heart Rate 85 08/27/2015 [facility] Systolic (mm Hg) 117 08/27/2015 [facility] Diastolic (mm Hg) 71 08/27/2015 [facility] Weight 93.182 08/26/2015 [facility] Height 162.56 cm 08/14/2015 [facility] BMI Calculated 33.29 08/14/2015 [facility] Weight 87.983 08/14/2015 [facility] Height 156.21 cm 01/30/2013 [facility] Weight 97.273 01/30/2013 [facility] Height 162.56 cm 01/30/2013 [facility] Encounters Location Location Details Encounter Type Encounter Number Reason For Visit Attending Provider ADM Date DC Date Status Source OD [id number] 724.2 - LUMBAGO BARRETT TOM 05/15/2012 Active [facility] [place] [id number] PATTY BLANDON 09/07/2012 09/07/[address] [facility] Outpatient [id number] ASD SHELBY PARRA 01/30/2013 Active [facility] Imaging [facility] Di[facility] Services [id number] Patty Blandon 10/11/2013 10/12/[address] [facility] Inpatient [id number] Humphrey Phoenix 08/25/2015 08/27/2015 [facility] [place] OP Therapy Patients [id number] Humphrey Phoenix 09/05/2015 10/05/2015 [facility] [place] [facility] [place] [facility] [id number] Humphreycarlitos Phoenix 10/06/2015 11/05/2015 [facility] [place] [facility] [place] [facility] Patients [id number] Humphreycarlitos Phoenix 11/06/2015 12/06/2015 [facility] [place] [facility] - [facility] Di[facility] [id number] Barrett Mccarty 01/06/2016 [facility] [id number] Humphreycarlitos [place] 01/26/2016 01/27/2016 [facility] [place] [facility] Patients [id number] Humphreycarlitos Phoenix 01/28/2016 02/27/2016 [facility] [place] [facility] [place] [facility] Patients [id number] Humphreycarlitos Phoenix 02/27/2016 03/28/2016 [facility] [place] [facility] [place] [facility] Patients [id number] Humphreycarlitos Phoenix 04/01/2016 05/01/2016 [facility] [place] [facility] [place] [facility] [id number] Jeimy Sattar 03/16/2017 04/15/2017 [facility] [place] [facility] [place] [facility] [id number] Jeimy Sattar 04/19/2017 05/19/2017 [facility] [place] [facility] Outpatient Imaging - [facility] [id number] Barrett Mccarty 04/28/2017 [facility]29[facility] [id number] SARAH VALDEZ MD 10/24/2017 10/24/2017 [facility] Outpatient Imaging - [place] [facility] [id number] Barrett Mccarty 04/24/2018 04/25/2018 [facility] [place] Procedures Procedure Code Date Perfomer Comments Source section [id number] SONIA Gallegos,[facility], ARNOLDO Gallegos,[facility] Cholecystectomy [id number] SONIA Gallegos,[facility] José Miguel,[facility] Ovarian cystectomy [id number] SONIA Gallegos,[facility], ARNOLDO Gallegos,[facility] [place] Total knee replacement [id number] [facility] Assessment and Plan Assessment and Plan Date Source Extracted from:Title: Clinical Document Author: Juventino Del Cid DO Date: 01/27/16 Progress Daily [facility] Completed: Dec, 10:56 by Juventino Del Cid DO RM: 240 - 1P, SE C2A HERNANDO GREEN 65y (: 1950) F Attending: Humphrey Phoenix MD Service: Orthopedic Reason for Admission: UNK Working DRG: Bone diseases and arthropathies w/o MCFP Code status: None Specified=FULL CODE Current diet: Isolation: None Documented Allergies: NKDA SUBJECTIVE Patient seen and examined. Events noted overnight. Labs/Images reviewed doing ok, working with therapy OBJECTIVE Labs (Last four charted values) WBC 9.9 (JAN 26) 9.1 (JAN 07) Hgb L 9.1 (JAN 26) 12.2 (JAN 07) Hct L 26.2 (JAN 26) 36.3 (JAN 07) Plt 313 (JAN 26) 420 (JAN 25) 288 (JAN 07) Na L 134 (JAN 26) 138 (JAN 07) K 4.2 (JAN 26) 3.5 (JAN 07) CO2 26 (JAN 26) 30 (DEC 08) Cl 99 (JAN 26) 101 (JAN 07) Cr 0.62 (JAN 26) 0.79 (JAN 25) 0.60 (JAN 07) BUN 16 (JAN 26) 16 (JAN 07) Glucose Random H 116 (JAN 26) H 112 (JAN 07) Ca L 8.1 (JAN 26) 9.0 (JAN 07) PT 14.0 (JAN 25) 12.5 (JAN 07) INR 1.05 (JAN 25) 0.90 (JAN 07) PTT 29.8 (JAN 25) 27.3 (JAN 07) ASSESSMENT and EXAM Gen: NAD, Alert, Awake HEENT: NC/AT, PERRLA, oral area clear and moist Neck: No LAD, No JVD, trachea midline Chest: CTAB, no c/w/r CV: RRR, S1, S2 GI: +BS, S, NT, ND, No organomegaly Ext: no c/c/e - left knee incision site intact Neuro: AOx3, no gross deficits noted Skin: No notable rashes PLAN and TREATMENT H/h stable Bg stable cont with PT/OT poss dc later today pain controlled ok to dc home today as per primary team DIAGNOSES and PROBLEMS 1. Left knee degenerative joint disease, status post total knee arthroplasty. 2. Type 2 diabetes mellitus, controlled. 3. Hypertension. 4. Hyperlipidemia. Ready for Discharge (Yes/No)? Garrett still necessary (Yes/No): Line still necessary (Yes/No): 24hr Labs 01/26 0624 Glucose Lvl 116 H BUN 16 Creatinine Lvl 0.62 Sodium Lvl 134 L Potassium Lvl 4.2 Chloride Lvl 99 CO2 26 AGAP 13.2 Calcium Lvl 8.1 L eGFR 95 WBC 9.9 RBC 3.11 L Hgb 9.1 L Hct 26.2 L MCV 84.5 MCH 29.4 MCHC 34.8 RDW 14.3 Platelet 313 MPV 6.8 L Segs 71.6 Monocytes 11.3 Lymphocytes 15.1 L Eosinophils 1.3 Basophils 0.7 Segs-Bands # 7.1 Lymphocytes # 1.5 Monocytes # 1.1 H Eosinophils # 0.1 Basophils # 0.1 01/26 0623 Glucose POC 120 H 01/25 2047 Glucose POC 121 H 01/25 1608 Glucose POC 160 H 01/25 1422 Creatinine Lvl 0.79 eGFR 79 Platelet 420 PT 14.0 INR 1.05 PTT 29.8 01/25 1131 Glucose POC 174 H Vitals Tmp(F) Pulse BP RR SpO2 FIO2 01/26 09:14 ---- 96 125/74 -- --- --- 01/26 08:00 98.3 91 110/68 16 95 --- 01/26 07:10 ---- --- ----- 18 93 21% 01/26 05:25 ---- 84 95/60 -- --- --- 01/26 04:51 97.9 85 94/61 16 94 --- 24 Hr Tmax: 98.3F (36.83c) at 01/26 08:00 Vital Signs are the last 5 in the past 48 hours. Date Wt(kg) Wt(lb) Ht(cm) Ht(in) Method 01/07 (initial) 88.64 195.00 Measured 01/07 162.56 64.00 Stated I&O Record In Out Bal 01/26 24hr Tot 253 0 253 01/25 24hr Tot 2416 310 2106 Medications (61) Active Scheduled Meds (13): 01/26/16 amLODIPine 5 mg PO Daily 01/27/16 ascorbic acid (Vitamin C) 500 mg PO Daily 01/26/16 atorvastatin 40 mg PO Bedtime 01/26/16 docusate 100 mg PO BID 01/27/16 enoxaparin 40 mg SUB-Q Daily 01/26/16 gabapentin (gabapentin 300 mg oral capsule) 300 mg PO TID 01/27/16 hydrochlorothiazide (hydrochlorothiazide 25 mg oral tablet) 12.5 mg PO Daily 01/26/16 ketOROLAC 15 mg IV Q8H 01/27/16 losartan (Cozaar) 100 mg PO Daily 01/26/16 metFORMIN (metFORMIN 1000 mg oral tablet, extended release) 1,000 mg PO BID-Meals 01/26/16 metoprolol (Toprol-XL 50 mg oral tablet, extended release) 50 mg PO BID 01/26/16 pantoprazole 40 mg PO Before Dinner 01/27/16 sodium chloride (Saline Flush 0.9%) 10 ml IVP Q12H Unscheduled Meds (3): 01/26/16 ropivacaine (AUDREY Pericapsular INJ) 100 mL InFILtration(local) ONCALL 01/26/16 vancomycin + sodium chloride 0.9% 250 mL INJ (for IV set) 250 mL 1,250 mg IVPB ONCALL 166.67 ml/hr 01/26/16 vancomycin 1,250 mg IVPB ONCALL 166.67 ml/hr PRN Meds (21): 01/26/16 Dextrose 50% in Water IV (Dextrose 50% Syringe) 12.5 gm IVP PRN 01/26/16 Dextrose 50% in Water IV (Dextrose 50% Syringe) 25 gm IVP PRN 01/26/16 acetaminophen-hydrocodone ([place] 5/325 oral tablet) 1 tab PO Q3H 01/26/16 acetaminophen-hydrocodone ([place] 10/325 oral tablet) 1 tab PO Q3H 01/26/16 acetaminophen-oxycodone (Percocet 10/325 oral tablet) 1 tab PO Q3H 01/26/16 bisacodyl 10 mg LA Daily 01/26/16 diphenhydrAMINE 12.5 mg PO Q6H 01/26/16 glucagon 1 mg IM PRN 01/26/16 hydromorphone (Dilaudid) 0.2 mg IV Q3H 01/26/16 hydromorphone (Dilaudid) 0.5 mg IV Q3H 01/26/16 insulin aspart 2 unit SUB-Q TID-Before Meals 01/26/16 insulin aspart 4 unit SUB-Q TID-Before Meals 01/26/16 insulin aspart 6 unit SUB-Q TID-Before Meals 01/26/16 insulin aspart 8 unit SUB-Q TID-Before Meals 01/26/16 insulin aspart 10 unit SUB-Q TID-Before Meals 01/26/16 insulin aspart 1 unit SUB-Q Bedtime 01/26/16 insulin aspart 2 unit SUB-Q Bedtime 01/26/16 insulin aspart 3 unit SUB-Q Bedtime 01/26/16 insulin aspart 4 unit SUB-Q Bedtime 01/26/16 ondansetron (Zofran) 4 mg IV Q6H 01/27/16 sodium chloride (Saline Flush 0.9%) 10 ml IVP PRN One Time Meds (23): (Completed) ceFAZolin (ceFAZolin (ANES)) IV ONCE 01/26/16 (not done) dexamethasone 10 mg IV ONCE 01/26/16 (Deleted) dexamethasone 4 mg IV ONCE 01/26/16 (Deleted) dexamethasone 4 mg PO ONCE 01/26/16 (Deleted) dexamethasone 2 mg PO ONCE 01/26/16 (Deleted) dexamethasone 2 mg PO ONCE (Completed) dexamethasone (dexamethasone (ANES)) IV ONCE 01/27/16 (Ordered) dexamethasone 4 mg IV ONCE 01/28/16 (Ordered) dexamethasone 4 mg PO ONCE 01/29/16 (Ordered) dexamethasone 2 mg PO ONCE 01/30/16 (Ordered) dexamethasone 2 mg PO ONCE (Completed) ePHEDrine (ePHEDrine (ANES)) IV ONCE (Completed) glycopyrrolate (glycopyrrolate (ANES)) IV ONCE (Completed) lidocaine (lidocaine (ANES)) IV ONCE (Completed) neostigmine (neostigmine (ANES)) IV ONCE (Completed) ondansetron (ondansetron (ANES)) IV ONCE (Completed) phenylephrine (phenylephrine (ANES)) IV ONCE (Completed) propofol (propofol (ANES)) IV ONCE (Completed) rocuronium (rocuronium (ANES)) IV ONCE 01/26/16 (Completed) tranexamic acid + sodium chloride 0.9% INJ 100 mL (Cyklokapron + sodium chloride 0.9% INJ 100 mL) 1,000 mg IVPB ONCE 220 ml/hr 01/26/16 (Deleted) tranexamic acid 1,000 mg IV ONCE (Completed) tranexamic acid (tranexamic acid (ANES)) IV ONCE (Completed) vancomycin (vancomycin (ANES)) IV ONCE Continuous Infusions (1): 01/26/16 sodium chloride 0.45% 1000 ml INJ 1,000 mL 1,000 mL 75 ml/hr Extracted from:Title: Clinical Document Author: Humphrey [place] MD Date: 01/26/16 TKA Operative Note Date: 01/26/2016 Location: [facility] Attending: Humphrey [place] MD Pre-op dx: Left knee osteoarthritis Post-op dx: Left knee osteoarthritis, arthrofibrosis, patella baja Procedure: Left total knee arthroplasty, complex Anesthesiologist: general, dilaudid spinal Anesthesia: Dr. Roper Monkey Trainer: sandrine Purvis T-time: 150 min EBL: _minimal UOP: no garrett IVF: see anesthesia note Transfusion: none required Implants: Portillo and Nephew Femur: 5N, Legion, Oxinium Tibia: Carmen 2, 4 Polyethylene: 9 mm, PS Patella: 29 mm Cement: Raza Simplex Abx Cement, 2 packs Resections: Femur: alignment: 5 deg valgus level: + 2mm, flexion contracture Tibia: slope: 4 degree Level: 2 mm, medial Clinical Indications: Patient is a 65 yo female with a diagnosis of knee osteoarthritis status post an extensive conservative medical management program including physical therapy with home exercise program, injections, and anti-inflammatories. Patient has exhausted all non-operative management options but has persistent pain and disability from the arthritis. X-rays demonstrate end stage joint space narrowing with bone on bone articulation involving the medial, lateral, and patellofemoral compartments of the knee. Intraoperative evaluation showed complete destruction of the cartilage surfaces in the medial, lateral, and patellofemoral compartments of the knee. Patient understands the risks, benefits, rational, and rehabilitation process inherent with a total knee arthroplasty. Patient expressed understanding that risks include but not limited to bleeding, pain, infection, damage to nearby structures: vessels, tendons, nerves and ligaments, hardware failure, loosening, fracture, need for revision surgery, blood clots in the legs and lungs, stroke, heart attack, and . The patient agreed and gave consent to surgery as indicated. Patient also understands the risks and benefits of blood transfusions. Risks including possible transmission of virus or bacteria, and transfusion reactions. Patient understood these risks and gave consent for transfusion as indicated. Procedure Note: Positioning: Patient brought into the OR and placed supine on the OR table. After successful an anesthetic was applied, a garrett catheter was placed. The Left lower extremity was then prepped and draped in the standard fashion with a non-sterile tourniquet on the proximal thigh. A surgical time-out was completed, antibiotics, surgical site, and allergies were confirmed. The operative extremity was then exsanguinated with the esmarch and the tourniquet was inflated. Approach: An anterior incision was centered over the knee with a 10 blade scalpel, and dissection was taken down to the retinacular layer. A medial parapatellar arthrotomy was completed in the standard fashion. We then resected the anterior distal femur synovium, infrapatellar fat pad, anterior horn of the lateral meniscus, and anterior cruciate ligament. The patella was still well adhered and a rectus snip was performed in the standard fashion. A complete anterior synovectomy was completed and mobnilization of the medial and lateral gutters. A medial proximal tibia release was completed in the standard fashion. Given the underlying patella baja, a threaded steinmen pin was placed to protect the tenon. The patella was everted, the patella resection was completed in the standard fashion at the level of the lateral facet. The patella was sized then drilled in the standard fashion. Femur 1: The intramedullary canal of the femur and tibia was accessed with drill and Charnley awl. A distal femoral cutting block was placed with the intramedullary guide and the distal femoral resection was completed with the oscillating saw. At this point we still cound not flex beyond 45 degrees and we were unable to size the femur. Tibia 1: Retractors were placed to protect the collateral ligaments. The intramedullary cutting block was placed and stabilized. The proximal tibial resection was completed with the oscillating saw. An extended medial proximal tibia release was completed circumferentially. This allowed the knee to be bent to 80 degrees. Femur 2: The femur was sized and the corresponding 4 in 1 cutting block was placed. The femur was anteriorized 2 mm to prevent notching. The anterior, posterior, and chamfer resections were completed. The bone cuts were refined with rongeur and osteotomes. We found that there was still a minor notch at the anterior femur crest. It did not require stem augmentation and pt had excellent bone stock. Tibia 2: The tibia was subluxed anteriorly and the posterior cruciate ligament was partially released. Retractors were placed to protect the collateral ligaments. The tibia cut was evaluated to have an anterior slope. The intramedullary cutting block was re-placed and stabilized. The proximal tibial resection was completed with the oscillating saw and refined with tibia rasp. The tibia was sized then broached in the standard fashion. The posterior compartment was accessed. We resected the menisci, posterior and notch osteophytes. Loose bodies were resected from the posterior compartment of the knee with the rongeur and curette. The posterior capsule was released off the posterior distal femur with the bovie and quiroga elevator. A large posterior medial osteophyte required debridement and was impinging/preventing deep flexion. Trialing/Balancing: The PCL was released to facilitate exposure. We converted to a posterior stabilized construct with the standard ream and broach technique. The knee was trialed with a 9 mm insert. The construct was able to achieve full extension, 135 degrees of flexion, with excellent patellar tracking, The construct was stable to varus and valgus stress with physiologic laxity Cementing: The bone surfaces were irrigated with 1 liter of normal saline fluid then dried. The posterior lateral corner was coagulated and bone grafted the tibia canal. The bone cement was applied under finger pressurization. The tibia component was impacted, excess bone cement was removed circumferenecially. The femur component was then impacted and excess bone cement was removed in flexion and extension. Lastly, the patella was everted and cemented into place. The liner was the implacted in the standard fashion. The entire operative field was irrigated with 2 liters of normal saline. Closure: The arthrotomy was closed with #1 ethibond sutures. Scarpas fascia was closed with inverted O vicryls. The skin was closed with inverted subcutaneous 2-O vicryls and a running 4-O monocryl. The wound was dressed with dermabond, adaptic, 4x4s, abd pads, and an vianey wrap. Tourniquet was released after the dressing was placed and tranexemic acid was given during the closure. The entire procedure was completed with the attending surgeon. Laminar air flow body exhaust suits were worn for the entire procedure. A minister assistant was utilized for the entire procedure. The minister assistant aided in positioning, retraction, implant sizing/implementation, and closure. The minister assistant decreased surgical time and therefore esvin-operative morbidity. 22 modifier justification: The patient's pre-op ROM, arthrofibrosis, and patella baja increased the complexity of the case. Additional maneuvers required for visualization included complete synovectomy, rectus snip, preservation of the patella tendon with steinmen pin, alteration of resection order. All of these steps increased the complexity of the case, surgical time, and perioperative morbidity/mortality. Post-op Dispo: Patient will be admitted to the floor, receive 24 hours of intravenous antibiotics, and DVT prophylaxis. The patient can weight bear as tolerated with no range of motion requirements. Extracted from:Title: Clinical Document Author: Humphrey [place] MD Date: 01/25/16 CHIEF COMPLAINT: Left knee pain. HISTORY OF PRESENT ILLNESS: The patient is a 65-year-old female with left knee pain with end-stage osteoarthritis. The patient has a history of left knee pain going on for the past greater than five years. The patient describes end-stage knee pain, 10/10 in severity, constant, dull ache, sharp, exacerbated chronically related to overuse, aggravated by weightbearing, range of motion, progressive activity, going up and down stairs. The patient's previous treatments included aspirin, tramadol, as well as steroid injections in the right knee as well as home exercise program, none of which have demonstrated any benefit. PAST MEDICAL HISTORY: low back pain, diabetes, hemorrhoids, hypertension PAST SURGICAL HISTORY: , lap derek, arthroscopy ALLERGIES: NKDA CURRENT MEDICATIONS: denies SOCIAL HISTORY: The patient denies smoking or drug use. Admits to social alcohol use. FAMILY HISTORY: Positive for hypertension and cancer. REVIEW OF SYSTEMS: A 12-system review of systems questionnaire was completed by the patient, reviewed by myself, scanned and signed dated August 14, 2014. Systems evaluated include general, skin, HEENT, psychiatric, pulmonary, , GI, musculoskeletal, lymphatics, endocrine, cardiovascular, and neurologic. Pertinent positives are limited to musculoskeletal, please see HPI for further details. PHYSICAL EXAMINATION: GENERAL: The patient is morbidly obese, in no acute distress. VITAL SIGNS: Height 5 feet 4 inches, 203 pounds, BMI is 33.1. PSYCHIATRIC: Alert and oriented x3. Demonstrates proper mood and affect. GAIT: right side antalgic gait. SKIN: There is positive soft tissue swelling of all lower extremities, but no evidence of ecchymosis, also 1+ effusion. EYES: Extraocular movements are intact. Sclerae are normal. CARDIOVASCULAR: 1+ DP pulse bilaterally. NEUROLOGIC: Motor exam, 5/5 motor strength in bilateral hip flexors, quads, hamstrings, TA, EHL, and GS. Light touch intact in L2-S1 dermatomal distributions, 1+ DTRs bilaterally. C-spine range of motion within normal limits. No midline tenderness to palpation of the cervical, thoracic, or lumbar spine. ABDOMEN: Soft, nontender, and nondistended. MUSCULOSKELETAL: The patient's left knee demonstrates severe pain on passive range of motion, palpable crepitus. The patient's right knee range of motion is now 10 to 60 degrees, trace varus-valgus laxity, trace anterior-posterior laxity, extensor lag is 0, flexion contracture is 10, tibial bow is negative. X-RAYS: X-rays taken at today's visit demonstrate bilateral standing AP of the knee, long alignment, also 90 degree flexion lateral of the right knee which demonstrates end-stage umlc-rr-linl articulation in the medial compartment and periarticular osteophytes, tvaq-tm-hjwk articulation, subchondral sclerosis in the arterial compartment as well as varus malalignment and long alignment film. ASSESSMENT: The patient has left knee osteoarthritis, M17.12. MEDICAL DECISION MAKING: The patient is a 65-year-old female with severe left knee pain, 10/10 in severity, going on for about 5 years. The patient describes pain isolated to the right knee, aggravated with weightbearing, range of motion, progressive activity, going up and down stairs. On physical examination, the patient has an antalgic gait, severe pain on passive range of motion, palpable crepitus, dramatic decrease range of motion 5 to 60 degrees. X-rays demonstrate complete loss of joint space in the medial compartment, periarticular osteophytes as well as chondral sclerosis in all three compartments. Previous treatments included tramadol as well as oral antiinflammatories as well as steroid injection and home exercise program with failed conservative management. The patient is an excellent candidate for a total knee arthoplasty. PLAN: At this point, we will proceed with right total knee arthroplasty. Portillo and Nephew instrumentation. Lovenox for DVT prophylaxis. Ancef and vancomycin. Toradol, tranexamic acid, and steroid taper. Risks and benefits were discussed at length with the patient. Risks of surgery include bleeding, pain, infection, damage to nearby structures (vessels, tendons, and nerves), hardware failure or loosening, need for revision surgery, possibility of blood clots in legs or lungs, stroke, heart attack, and . We also discussed the possibility of requiring a blood transfusion. The patient understands the risk of transfusion including possible transmission of virus or bacteria, and possible transfusion reaction. The patient understood the risk and gave consent for transfusion as indicated. 01/27/2016 [place] Extracted from:Title: Clinical Document Author: Humphrey Phoenix MD Date: 08/27/15 Admit Date: 08/25/2015 Discharge Date: 08/27/2015 Reason for Hospitalization: Right TKA Patient was admitted to the floor s/p Right TKA. Pt tolerated the surgery well and vital signs were stable in the post operative period. Pt recieved 24 hr abx prohlyaxis, DVT prophlaxis was started within 23 hrs of surgery, and was cleared for d/c home by PT on POD# 2. Discharge Instructions WBAT, with knee in knee immobilizer ROM with CPM machine only f/u Dr. Humphrey Phoenix on 09/05/2015 Discharge Medications Lovenox 40 mg SubQ Q24hr for 10 days post-op [place] 10/325 1-2 tab PO Q4-6Hr PRN Pain Continue all home medcations Contact [facility] if: Fever > 101.5 Increasing pain Redness along incision purulent drainage Extracted from:Title: Ortho PN POD#2 Author: Humphrey Phoenix MD Date: 08/27/15 Progress Daily [facility] Completed: Jul, 11:57 by Humphrey Phoenix MD RM: 245 - 1P, SE HERNANDO JARAMILLO 65y (: 1950) F Attending: Humphrey Phoenix MD Service: Orthopedic Surgery Service Reason for Admission: TOTAL KNEE ARTHROPLASTY Working DRG: Bone diseases and arthropathies w/o MCFP Code status: Full Code [Ordered] Current diet: Isolation: None Documented Allergies: NKDA SUBJECTIVE no complaints, minimal apin OBJECTIVE incision CDI LT I m/l/p/d/fdws +GS TA FHL EHL CR brisk no clinical signs of DVT ASSESSMENT and EXAM s/p Right TKA POD#1 PLAN and TREATMENT s/p Right TKA, POD#2 DIAGNOSES and PROBLEMS s/p abx prophylaxis VSS, Hg stable acute blood loss anemia lovenox fro DVT prophylaxis OOB w/ PT d/c home today, hold off on outpatient PT 24hr Labs 08/26 1047 Glucose POC 144 H 08/26 0642 Glucose POC 106 H 08/26 0443 Magnesium Lvl 1.5 L Glucose Lvl 111 H BUN 11 Creatinine Lvl 0.45 L Sodium Lvl 140 Potassium Lvl 3.6 Chloride Lvl 102 CO2 30 AGAP 11.6 Calcium Lvl 8.4 L eGFR 105 WBC 13.4 H RBC 3.36 L Hgb 10.1 L Hct 30.1 L MCV 89.6 MCH 30.1 MCHC 33.6 RDW 13.5 Platelet 293 MPV 7.8 Segs 68.0 Bands 1.0 Lymphocytes 26.0 Atypical Lymphs 0.0 Monocytes 3.0 Eosinophils 1.0 Basophils 1.0 Segs-Bands # 9.2 H Lymphocytes # 3.5 Monocytes # 0.4 Eosinophils # 0.1 Basophils # 0.1 RBC Morph Normal Plt Morph Normal Tot Cell Ct 100 08/25 2135 Glucose POC 103 H 08/25 1545 Glucose POC 133 H Vitals Tmp(F) Pulse BP RR SpO2 FIO2 08/26 11:33 97.7 86 119/74 18 95 --- 08/26 08:00 98.1 83 121/68 18 95 21% 08/26 06:40 ---- --- ----- 16 94 21% 08/26 04:15 97.4 85 117/71 18 92 --- 08/26 00:15 98.2 88 115/70 18 92 --- 24 Hr Tmax: 98.4F (36.89c) at 08/25 16:02 Vital Signs are the last 5 in the past 48 hours. Date Wt(kg) Wt(lb) Ht(cm) Ht(in) Method 08/24 93.18 205.00 Measured 08/13 (initial) 87.98 193.56 Measured 08/13 162.56 64.00 Stated I&O Record In Out Bal 08/26 24hr Tot 10 0 10 08/25 24hr Tot 983 0 983 Medications (37) Active Scheduled Meds (13): 08/26/15 amLODIPine 5 mg PO Daily 08/26/15 aspirin 81 mg PO Daily 08/25/15 atorvastatin 40 mg PO Bedtime 08/25/15 docusate 100 mg PO BID 08/26/15 enoxaparin 40 mg SUB-Q [id number] 08/26/15 gabapentin (gabapentin 300 mg oral capsule) 300 mg PO TID 08/26/15 hydrochlorothiazide (Microzide) 12.5 mg PO Daily 08/26/15 losartan (Cozaar) 100 mg PO Daily 08/26/15 metFORMIN (metFORMIN 1000 mg oral tablet, extended release) 1,000 mg PO BID 08/25/15 metoprolol (Toprol-XL 50 mg oral tablet, extended release) 50 mg PO BID 08/26/15 non-formulary (pt own Tradjenta) 5 mg PO Daily 08/26/15 pantoprazole 40 mg PO Daily 08/26/15 sodium chloride (Saline Flush 0.9%) 10 ml IVP Q12H Unscheduled Meds: None PRN Meds (22): 08/25/15 Dextrose 50% in Water IV (Dextrose 50% Syringe) 12.5 gm IVP PRN 08/25/15 Dextrose 50% in Water IV (Dextrose 50% Syringe) 25 gm IVP PRN 08/25/15 acetaminophen-hydrocodone ([place] 5/325 oral tablet) 1 tab PO Q3H 08/26/15 acetaminophen-hydrocodone (acetaminophen-hydrocodone 325 mg-10 mg oral tablet) 1 tab PO Q3H 08/26/15 acetaminophen (Tylenol) 325 mg PO Q3H 08/25/15 bisacodyl 10 mg LA Daily 08/25/15 diphenhydrAMINE 12.5 mg PO Q6H 08/25/15 glucagon 1 mg IM PRN 08/25/15 hydromorphone (Dilaudid) 0.2 mg IVP Q3H 08/25/15 hydromorphone (Dilaudid) 0.5 mg IV Q3H 08/25/15 insulin aspart 2 unit SUB-Q TID-Before Meals 08/25/15 insulin aspart 4 unit SUB-Q TID-Before Meals 08/25/15 insulin aspart 6 unit SUB-Q TID-Before Meals 08/25/15 insulin aspart 8 unit SUB-Q TID-Before Meals 08/25/15 insulin aspart 10 unit SUB-Q TID-Before Meals 08/25/15 insulin aspart 1 unit SUB-Q Bedtime 08/25/15 insulin aspart 2 unit SUB-Q Bedtime 08/25/15 insulin aspart 3 unit SUB-Q Bedtime 08/25/15 insulin aspart 4 unit SUB-Q Bedtime 08/25/15 ondansetron (Zofran) 4 mg IV Q6H 08/26/15 oxyCODONE (OxyIR) 10 mg PO Q3H 08/26/15 sodium chloride (Saline Flush 0.9%) 10 ml IVP PRN One Time Meds (1): 08/26/15 (Completed) potassium chloride (potassium chloride 20 mEq oral tablet, extended release) 20 mEq PO ONCE Continuous Infusions (1): 08/25/15 Sodium Chloride 0.45% IV 1,000 mL (1/2 NS 1,000 mL) 1,000 mL 75 ml/hr Extracted from:Title: Clinical Document Author: Humphrey Phoenix MD Date: 08/25/15 TKA Operative Note Date: 08/25/2015 Location: [facility] Attending: Humphrey Phoenix MD Pre-op dx: Right knee osteoarthritis Post-op dx: Right knee osteoarthritis, patella baja, arthrofibrosis Procedure: Right total knee arthroplasty Anesthesiologist: Jeanie Morrissey CRNA Anesthesia: General, Dilaudid Spinal Monkey Trainer: HEATH Iqbal T-time: 130 min EBL: minimal UOP: no garrett IVF: see anesthesia note Transfusion: none required Implants: Portillo and Nephew Femur: 5, N, Legion, Oxninium Tibia: 5, Carmen 2 Polyethylene: 13 mm, dished, x-link Patella: 29 mm Cement: Raza Simplex Abx Cement, 2 packs Resections: Femur: alignment: 5 deg, valgus level: +2, 2/2 flexion contracture Tibia: slope: 4 degree Level: 2 mm, medial Clinical Indications: Patient is a 65 yo female with a diagnosis of knee osteoarthritis status post an extensive conservative medical management program including physical therapy with home exercise program, injections, and anti-inflammatories. Patient has exhausted all non-operative management options but has persistent pain and disability from the arthritis. X-rays demonstrate end stage joint space narrowing with bone on bone articulation involving the medial, lateral, and patellofemoral compartments of the knee. Intraoperative evaluation showed complete destruction of the cartilage surfaces in the medial, lateral, and patellofemoral compartments of the knee. Patient understands the risks, benefits, rational, and rehabilitation process inherent with a total knee arthroplasty. Patient expressed understanding that risks include but not limited to bleeding, pain, infection, damage to nearby structures: vessels, tendons, nerves and ligaments, hardware failure, loosening, fracture, need for revision surgery, blood clots in the legs and lungs, stroke, heart attack, and . The patient agreed and gave consent to surgery as indicated. Patient also understands the risks and benefits of blood transfusions. Risks including possible transmission of virus or bacteria, and transfusion reactions. Patient understood these risks and gave consent for transfusion as indicated. Procedure Note: Positioning: Patient brought into the OR and placed supine on the OR table. After successful an anesthetic was applied, a garrett catheter was placed. The Right lower extremity was then prepped and draped in the standard fashion with a non-sterile tourniquet on the proximal thigh. A surgical time-out was completed, antibiotics, surgical site, and allergies were confirmed. The operative extremity was then exsanguinated with the esmarch and the tourniquet was inflated. Approach: An anterior incision was centered over the knee with a 10 blade scalpel, and dissection was taken down to the retinacular layer. A medial parapatellar arthrotomy was completed in the standard fashion. We then resected the anterior distal femur synovium, infrapatellar fat pad, anterior horn of the lateral meniscus, and anterior cruciate ligament. A medial proximal tibia release was completed in the standard fashion. The patella was everted, the patella resection was completed in the standard fashion at the level of the lateral facet. The patella was sized then drilled in the standard fashion. Femur: The intramedullary canal of the femur and tibia was accessed with drill and Charnley awl. A distal femoral cutting block was placed with the intramedullary guide and the distal femoral resection was completed with the oscillating saw. The femur was sized and the corresponding 4 in 1 cutting block was placed. The anterior, posterior, and chamfer resections were completed. The bone cuts were refined with rongeur and osteotomes, Tibia: The tibia was subluxed anteriorly and the posterior cruciate ligament was partially released. Retractors were placed to protect the collateral ligaments. The intramedullary cutting block was placed and stabilized. The proximal tibial resection was completed with the oscillating saw and refined with tibia rasp. The tibia was sized then broached in the standard fashion. The posterior compartment was accessed. We resected the menisci, posterior and notch osteophytes. Loose bodies were resected from the posterior compartment of the knee with the rongeur and curette. The posterior capsule was released off the posterior distal femur with the bovie and quiroga elevator. An extensile medial proximal tibia release was completed 2/2 pre-existing valgus deformity Trialing/Balancing: The knee was trialed with a 11 mm insert. It was found to be lax in full extension and 90 degree flexion. The construct was re-trialed iwth a 13 mm dished insert. The construct was able to achieve full extension, 135 degrees of flexion, with excellent patellar tracking, The construct was stable to varus and valgus stress with physiologic laxity Cementing: The bone surfaces were irrigated with 1 liter of normal saline fluid then dried. The posterior lateral corner was coagulated and bone grafted the tibia canal. The bone cement was applied under finger pressurization. The tibia component was impacted, excess bone cement was removed circumferenecially. The femur component was then impacted and excess bone cement was removed in flexion and extension. Lastly, the patella was everted and cemented into place. The liner was the implacted in the standard fashion. The entire operative field was irrigated with 2 liters of normal saline. Closure: Upon inspection, the patella tendon was found to be avusled from tibial tubercle by 50%. A suture anchor was then placed, and Fiberwire stiches were passed through the patella tendon and tied. The arthrotomy was closed with #1 ethibond sutures. Scarpas fascia was closed with inverted O vicryls. The skin was closed with inverted subcutaneous 2-O vicryls and a running 4-O monocryl. The wound was dressed with dermabond, adaptic, 4x4s, abd pads, and an vianey wrap. Tourniquet was released after the dressing was placed and tranexemic acid was given during the closure. The entire procedure was completed with the attending surgeon. Laminar air flow body exhaust suits were worn for the entire procedure. A minister assistant was utilized for the entire procedure. The minister assistant aided in positioning, retraction, implant sizing/implementation, and closure. The minister assistant decreased surgical time and therefore esvin-operative morbidity. Post-op Dispo: Patient will be admitted to the floor, receive 24 hours of intravenous antibiotics, and DVT prophylaxis. The patient can weight bear as tolerated with a knee immobilizer. 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 Extracted from:Title: Clinical Document Author: Humphrey Phoenix MD Date: 08/24/15 CHIEF COMPLAINT: Right knee pain. HISTORY OF PRESENT ILLNESS: The patient is a 65-year-old female with progressive bilateral knee pain with end-stage osteoarthritis. The patient has a history of right knee pain going on for the past greater than five years. The patient describes end-stage knee pain, 10/10 in severity, constant, dull ache, sharp, exacerbated chronically related to overuse, aggravated by weightbearing, range of motion, progressive activity, going up and down stairs. The patient's previous treatments included aspirin, tramadol, as well as steroid injections in the right knee as well as home exercise program, none of which have demonstrated any benefit. PAST MEDICAL HISTORY: low back pain, diabetes, hemorrhoids, hypertension PAST SURGICAL HISTORY: , lap derek, arthroscopy ALLERGIES: NKDA CURRENT MEDICATIONS: denies SOCIAL HISTORY: The patient denies smoking or drug use. Admits to social alcohol use. FAMILY HISTORY: Positive for hypertension and cancer. REVIEW OF SYSTEMS: A 12-system review of systems questionnaire was completed by the patient, reviewed by myself, scanned and signed dated August 14, 2014. Systems evaluated include general, skin, HEENT, psychiatric, pulmonary, , GI, musculoskeletal, lymphatics, endocrine, cardiovascular, and neurologic. Pertinent positives are limited to musculoskeletal, please see HPI for further details. PHYSICAL EXAMINATION: GENERAL: The patient is morbidly obese, in no acute distress. VITAL SIGNS: Height 5 feet 4 inches, 203 pounds, BMI is 33.1. PSYCHIATRIC: Alert and oriented x3. Demonstrates proper mood and affect. GAIT: right side antalgic gait. SKIN: There is positive soft tissue swelling of all lower extremities, but no evidence of ecchymosis, also 1+ effusion. EYES: Extraocular movements are intact. Sclerae are normal. CARDIOVASCULAR: 1+ DP pulse bilaterally. NEUROLOGIC: Motor exam, 5/5 motor strength in bilateral hip flexors, quads, hamstrings, TA, EHL, and GS. Light touch intact in L2-S1 dermatomal distributions, 1+ DTRs bilaterally. C-spine range of motion within normal limits. No midline tenderness to palpation of the cervical, thoracic, or lumbar spine. ABDOMEN: Soft, nontender, and nondistended. MUSCULOSKELETAL: The patient's right knee demonstrates severe pain on passive range of motion, palpable crepitus. The patient's right knee range of motion is now 5 to 60 degrees, trace varus-valgus laxity, trace anterior-posterior laxity, extensor lag is 0, flexion contracture is negative, tibial bow is negative. X-RAYS: X-rays taken at today's visit demonstrate bilateral standing AP of the knee, long alignment, also 90 degree flexion lateral of the right knee which demonstrates end-stage jvuf-yq-mylq articulation in the medial compartment and periarticular osteophytes, beli-rs-ndut articulation, subchondral sclerosis in the arterial compartment as well as varus malalignment and long alignment film. ASSESSMENT: The patient has right knee osteoarthritis, M17.11. MEDICAL DECISION MAKING: The patient is a 65-year-old female with severe right knee pain, 10/10 in severity, going on for about 5 years. The patient describes pain isolated to the right knee, aggravated with weightbearing, range of motion, progressive activity, going up and down stairs. On physical examination, the patient has an antalgic gait, severe pain on passive range of motion, palpable crepitus, dramatic decrease range of motion 5 to 60 degrees. X-rays demonstrate complete loss of joint space in the medial compartment, periarticular osteophytes as well as chondral sclerosis in all three compartments. Previous treatments included tramadol as well as oral antiinflammatories as well as steroid injection and home exercise program with failed conservative management. The patient is an excellent candidate for a total knee arthoplasty. PLAN: At this point, we will proceed with right total knee arthroplasty. Portillo and Nephew instrumentation. Lovenox for DVT prophylaxis. Ancef and vancomycin. Toradol, tranexamic acid, and steroid taper. Risks and benefits were discussed at length with the patient. Risks of surgery include bleeding, pain, infection, damage to nearby structures (vessels, tendons, and nerves), hardware failure or loosening, need for revision surgery, possibility of blood clots in legs or lungs, stroke, heart attack, and . We also discussed the possibility of requiring a blood transfusion. The patient understands the risk of transfusion including possible transmission of virus or bacteria, and possible transfusion reaction. The patient understood the risk and gave consent for transfusion as indicated. 08/27/2015 [facility] Plan of Care Plan of Care Date Source Discharge Date 10/24/17 7:50pm Disposition HOME, SELF-CARE Condition at Discharge Stable Instructions/Education Provided Stress Hypertension Forms Provided Work/School Excuse Prescriptions See Medication Section Referrals BASSAM MCCARTYPaige Llamas Address: [address] [place] [id number] Additional Instructions/Education CLINICAL IMPRESSION Uncontrolled hypertension. Acute stress reaction. DISCHARGE INSTRUCTIONS Prescription Medications: Valium 5 mg: take 1 orally at bedtime as needed for anxiety. Dispense ten (10). No refill. Substitution is permissible. 10/24/2017 [facility] Social History Social History Date Source Smoking Status Start Date Stop Date Never Smoker 10/24/2017 [facility] Social History TypeResponse Substance Abuse Use: None. Alcohol Never Smoking Status Never smoker; Exposure to Tobacco Smoke None; Cigarette Smoking Last 365 Days No; Reg Smoking Cessation Counseling No entered on: 01/26/16 08/14/2015 [facility] José Miguel Social History TypeResponse Substance Abuse Use: None. Alcohol Never Smoking Status Never smoker; Exposure to Tobacco Smoke None; Cigarette Smoking Last 365 Days No; Reg Smoking Cessation Counseling No 08/14/2015 [facility] Social History TypeResponse Substance Abuse Use: None. Alcohol Never Smoking Status Never smoker; Exposure to Tobacco Smoke None; Cigarette Smoking Last 365 Days No; Reg Smoking Cessation Counseling No 08/14/2015 [facility] Social History TypeResponse Substance Abuse Use: None. Alcohol Never Smoking Status Never smoker; Exposure to Tobacco Smoke None; Cigarette Smoking Last 365 Days No; Reg Smoking Cessation Counseling No entered on: 01/26/16 08/14/2015 [facility] Galleg[facility] Family History No Data Provided for This Section Advance Directives Order Name Results Value Date Source Advance Directives Advance Directives Directive Response Recorded Date/Time Does the patient have an advance directive? Yes 10/24/17 6:07pm If yes, is advance directive on file with [facility]? No 12/13/06 11:38am If not on file with [facility] will patient provide a copy? No 05/21/10 2:31pm Do you have a Directive to Physician? No 10/24/17 6:07pm Do you have a Medical Power of Dentistry Professor? Yes 10/24/17 6:07pm Do you have an out of hospital Do Not Resuscitate Order? No 10/24/17 6:07pm Do you have any special needs we should be aware of? No 10/24/17 6:07pm Do you have a support person here with you today? Yes 10/24/17 6:07pm Did patient receive Notice of Privacy Practices? Yes 10/24/17 6:07pm Did patient receive patient rights and responsibilities? Yes 10/24/17 6:07pm 10/24/2017 [facility] Functional Status No Data Provided for This Section
--- OUTSIDE RECORDS SUMMARY | 2019-01-17 20:08 | XMS REPORT | Summary of Care ---
Author Organization Unknown Address Unknown Phone Unavailable Encounter HQ Elanantr_sagar(JAYA) [id number] Date(s): 10/11/13 - 10/11/13 [facility] Outpatient Imaging [address] Discharge Disposition: Home Physician Attending: Monica Blandon MD Reason for Visit 719.46 - JOINT PAIN-L/LE Problem List No data available for this section Allergies, Adverse Reactions, Alerts Substance Reaction Severity Status NKDA Active Medications No data available for this section Medications Administered During Your Visit No data available for this section Immunizations No data available for this section
--- OUTSIDE RECORDS SUMMARY | 2019-01-17 20:09 | XMS REPORT | Summary of Care ---
Author Author [facility] Address Unknown Phone Unavailable Encounter HQ Encntr_aliterence(FIN) [id number] Date(s): 04/01/16 - 04/30/16 [facility] José Miguel Final: Stiffness of left knee, not elsewhere classified Final: Difficulty in walking, not elsewhere classified Discharge Disposition: Home or Self Care Attending Physician: Humphrey Phoenix MD Vital Signs No data available for this section Problem List Condition Effective Dates Status Health Status Informant Acid Active reflux(Confirmed) Diabetes Active mellitus(Confirmed) Hyperlipidemia(Confi Active rmed) Hypertension(Confirm Active ed) Spinal Active stenosis(Confirmed) Allergies, Adverse Reactions, Alerts Substance Reaction Severity Status NKDA Active Medications No data available for this section Results No data available for this section Immunizations No data available for this section Procedures Procedure Date Related Diagnosis Body Site section Cholecystectomy Ovarian cystectomy Total knee replacement Social History Social History Type Response Substance Abuse Use: None. Alcohol Never Smoking Status Never smoker; Exposure to Tobacco Smoke None; Cigarette Smoking Last 365 Days No; Reg Smoking Cessation Counseling No Assessment and Plan No data available for this section
--- OUTSIDE RECORDS SUMMARY | 2019-01-17 20:09 | XMS REPORT | Summary of Care ---
Author Author [facility] Outpatient Imaging [facility] Outpatient Imaging [facility] Address Unknown Phone Unavailable Encounter HQ Juliano_sagar(FIN) [id number] Date(s): 01/06/16 - 01/06/16 [facility] Outpatient Imaging [facility] [address] [facility], [address] [place] [phone] Discharge Disposition: Home or Self Care Attending Physician: Sindi Mccarty MD Vital Signs No data available for [...]
--- OUTSIDE RECORDS SUMMARY | 2019-01-17 20:09 | XMS REPORT | Summary of Care ---
Author Author [facility] Address Unknown Phone Unavailable Encounter HQ Encntr_aliterence(FIN) [id number] Date(s): 09/05/15 - 10/04/15 [facility] Discharge Disposition: Home Attending Physician: Humphrey Phoenix MD Vital Signs [...] No data available for this section Procedures No data available for this section Social History Social History Type Response Substance Abuse Use: None. Alcohol Never Smoking Status Never smoker; Exposure to Tobacco Smoke None; Cigarette Smoking Last 365 Days No; Reg Smoking Cessation Counseling No Assessment and Plan No data available for this section
--- OUTSIDE RECORDS SUMMARY | 2019-01-17 20:09 | XMS REPORT | Summary of Care ---
Author Author [facility] Address Unknown Phone Unavailable Encounter HQ Encntr_aliterence(FIN) [id number] Date(s): 11/06/15 - 12/05/15 [facility] Discharge Disposition: Home or Self Care Attending [...]
--- OUTSIDE RECORDS SUMMARY | 2019-01-17 20:09 | XMS REPORT | Summary of Care ---
Author Author [facility] Address Unknown Phone Unavailable Encounter HQ Encntr_sagar(FIN) [id number] Date(s): 03/16/17 - 04/14/17 Critical access hospital Discharge Disposition: Home or Self Care Attending Physician: Jeimy Casas MD Vital Signs No data available for [...]
--- OUTSIDE RECORDS SUMMARY | 2019-01-17 20:09 | XMS REPORT | Summary of Care ---
Author Author [facility] Address Unknown Phone Unavailable Encounter HQ Elanantr_sagar(FIN) [phone] Date(s): 04/19/17 - 05/18/17 [facility] Encounter Diagnosis Low back pain (Final) - 05/20/17 Muscle weakness (generalized) (Final) - Stiffness of unspecified joint, not elsewhere classified (Final) - Difficulty in walking, not elsewhere classified (Final) - Discharge Disposition: Home or Self Care Attending [...] Procedures Procedure Date Related Diagnosis Body Site Status section Completed Cholecystectomy Completed Ovarian cystectomy Completed Total knee replacement Completed Social History Social History Type Response Substance Abuse Use: None. Alcohol Never Smoking Status Never smoker; Exposure to Tobacco Smoke None; Cigarette Smoking Last 365 Days No; Reg Smoking Cessation Counseling No entered on: 01/26/16 Assessment and Plan No data available for this section
--- OUTSIDE RECORDS SUMMARY | 2019-01-17 20:09 | XMS REPORT | Summary of Care ---
Author Author [facility] Address Unknown Phone Unavailable Encounter HQ Encntr_alias(FIN) [phone] Date(s): 10/06/15 - 11/04/15 Critical access hospital Discharge Disposition: Home Attending Physician: Humphrey [place] [...]
--- OUTSIDE RECORDS SUMMARY | 2019-01-17 20:09 | XMS REPORT | Summary of Care ---
Author Author [facility] Address Unknown Phone Unavailable Encounter HQ Encntr_alias(FIN) [phone] Date(s): 02/27/16 - 03/27/16 [facility] Discharge Disposition: Home or Self Care Attending [...]
--- OUTSIDE RECORDS SUMMARY | 2019-01-17 20:09 | XMS REPORT | Summary of Care ---
Author Author [facility] Organization [facility] Address Unknown Phone Unavailable Encounter JOSE Smiley(JAYA) [id number] Date(s): 08/25/15 - 08/27/15 [facility] [address] [place] [address]- Discharge Disposition: Home Attending Physician: Humphrey Phoenix MD Admitting Physician: Humphrey Phoenix MD Referring Physician: Humphrey Phoenix MD Vital Signs 1 2 3 Most recent to oldest [Reference Range]: 162.56 cm (08/14/15 12:45 PM) Height 97.7 DegF (08/27/15 11:33 AM) 98.1 DegF (08/27/15 8:00 AM) 97.4 DegF (08/27/15 4:15 AM) Temperature Oral [96.4-99.1 DegF] 119/74 mmHg (08/27/15 11:33 AM) 121/68 mmHg (08/27/15 8:00 AM) 117/71 mmHg (08/27/15 4:15 AM) Blood Pressure [90-140/60-90 mmHg] 18 BRMIN (08/27/15 11:33 AM) 18 BRMIN (08/27/15 8:00 AM) 16 BRMIN (08/27/15 6:40 AM) Respiratory Rate [14-20 BRMIN] 86 bpm (08/27/15 11:33 AM) 83 bpm (08/27/15 8:00 AM) 85 bpm (08/27/15 4:15 AM) Peripheral Pulse Rate [60-100 bpm] 93.182 kg (08/25/15 8:20 PM) 87.983 kg (08/14/15 12:45 PM) Weight 33.29 m2 (08/14/15 12:45 PM) Body Mass Index Problem List Condition Effective Dates Status Health Status Informant Acid Active reflux(Confirmed) Diabetes Active mellitus(Confirmed) Hyperlipidemia(Confi Active rmed) Hypertension(Confirm Active ed) Spinal Active stenosis(Confirmed) Allergies, Adverse Reactions, Alerts Substance Reaction Severity Status NKDA Active Medications 1/2 NS 1,000 mL 1,000 mL, Rate: 75 ml/hr, Infuse over: 13.3 hr, Route: IV, 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 kg, Total Volume: 1,000, Start date: 08/25/15 10:23:00 CDT, Duration: 30 day, St op date: 09/24/15 10:22:00 CDT Start Date: 08/25/15 Stop Date: 08/27/15 Status: Discontinued acetaminophen-hydrocodone 325 mg-10 mg oral tablet 1 tab, PO, Q3H, PRN Pain, # 90 tab, 0 Refill(s), given to patient Start Date: 08/27/15 Stop Date: 08/28/15 Status: Completed acetaminophen-hydrocodone 325 mg-10 mg oral tablet 1 tab, Route: PO, Drug Form: TAB, 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, kg, Q3H, PRN Pain Score 4-6, Start date: 08/26/15 11:34:00 CDT, Duration: 30 day, Stop date: 09/25/15 11 :33:00 CDT Notes: Do not exceed 4gm/day of acetaminophen. (Same as: Duchesne 325/10) Start Date: 08/26/15 Stop Date: 08/27/15 Status: Discontinued amLODIPine 5 mg, 1 tab, Route: PO, Drug form: TAB, Daily, 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, kg, Start d ate: 08/26/15 9:00:00 CDT, Duration: 30 day, Stop date: 09/24/15 9:00:00 CDT Notes: (Same as: Norvasc) Start Date: 08/26/15 Stop Date: 08/27/15 Status: Discontinued amLODIPine 5 mg oral tablet 5 mg=1 tab, PO, Daily, 1 tab at 6pm, # 90 tab, 0 Refill(s) Start Date: 08/14/15 Status: Ordered aspirin 81 mg, 1 tab, Route: PO, Drug form: ECTAB, Daily, 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, kg, Star t date: 08/26/15 9:00:00 CDT, Duration: 30 day, Stop date: 09/24/15 9:00:00 CDT Notes: Do not crush or chew.(Same As: Ecotrin) Start Date: 08/26/15 Stop Date: 08/27/15 Status: Discontinued Aspirin Low Dose 81 mg oral tablet =1 tab, PO, Daily, # 100 tab, 3 Refill(s) Start Date: 08/14/15 Stop Date: 08/27/15 Status: Discontinued atorvastatin 40 mg, 1 tab, Route: PO, Drug form: TAB, Bedtime, 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, kg, Star t date: 08/25/15 21:00:00 CDT, Duration: 30 day, Stop date: 09/23/15 21:00:00 CD T Notes: (Same as: Lipitor) Start Date: 08/25/15 Stop Date: 08/27/15 Status: Discontinued atorvastatin 40 mg oral tablet 40 mg=1 tab, PO, Bedtime, # 30 tab, 0 Refill(s) Start Date: 08/14/15 Status: Ordered bisacodyl 10 mg, 1 supp, Route: SD, Drug form: SUPP, Daily, 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, kg, PRN Constipation, Start date: 08/25/15 10:23:00 CDT, Duration: 30 day, Stop date: 10:22:00 CDT Notes: (Same As: Dulcolax, Bisco-Lax) Start Date: 08/25/15 Stop Date: 08/27/15 Status: Discontinued calcium (as carbonate)-vitamin D 600 mg-800 intl units oral tablet 1 tab, PO, BID, 0 Refill(s) Start Date: 08/14/15 Status: Ordered ceFAZolin 2 gm, 100 mL, Route: IVPB, Drug form: INJ, ONCALL, 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, kg, Sta rt date: 08/25/15 7:00:00 CDT, Duration: 1 day, Stop date: 08/26/15 6:59:00 CDT Notes: Same as: Ancef Start Date: 08/25/15 Stop Date: 08/27/15 Status: Completed ceFAZolin (ANES) Route: IV, Drug form: INJ, ONCE, Stop date: 08/25/15 8:58:00 CDT Start Date: 08/25/15 Stop Date: 08/25/15 Status: Completed ceFAZolin (SCIP) 1 gm, 100 mL, Route: IVPB, Drug form: INJ, [id number], 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, kg, Sta rt date: 08/25/15 14:00:00 CDT, Duration: 3 doses or times, Stop date: 08/26/15 2:00:00 CDT Start Date: 08/25/15 Stop Date: 08/26/15 Status: Completed celecoxib 200 mg, Route: PO, ONCALL, 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, kg, (for CrCl > 90 mL/min), Start date: 08/25/15 7:00:00 CDT, Duration: 30 day, Stop date: 09/24/15 6:59:00 CDT Start Date: 08/25/15 Stop Date: 08/25/15 Status: Completed Cozaar 100 mg, 2 tab, Route: PO, Drug form: TAB, Daily, Start date: 08/26/15 9:00:00 CD T, Duration: 30 day, Stop date: 09/24/15 9:00:00 CDT Notes: (Same as: Cozaar) Start Date: 08/26/15 Stop Date: 08/27/15 Status: Discontinued Cyklokapron + Sodium Chloride 0.9% IV 90 mL 1,000 mg, 10 mL, Route: IVPB, ONCE, Start date: 08/25/15 16:00:00 CDT, Stop date : 08/25/15 16:00:00 CDT Notes: (Same As: Cyklokapron) Start Date: 08/25/15 Stop Date: 08/25/15 Status: Completed dexamethasone 10 mg, 2.5 mL, Route: IV, Drug form: INJ, ONCE, 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, kg, Start date: 08/25/15 10:23:00 CDT, Stop date: 08/25/15 10:23:00 CDT Notes: Concentration: 4mg/ml Start Date: 08/25/15 Stop Date: 08/25/15 Status: Completed dexamethasone 4 mg, Route: IV, ONCE, 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, kg, Start date: 08/25/15 10:23:00 C DT, Stop date: 08/25/15 10:23:00 CDT Start Date: 08/25/15 Stop Date: 08/25/15 Status: Deleted dexamethasone 2 mg, Route: PO, ONCE, 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, kg, Start date: 08/25/15 10:23:00 C DT, Stop date: 08/25/15 10:23:00 CDT Start Date: 08/25/15 Stop Date: 08/25/15 Status: Deleted dexamethasone 4 mg, Route: PO, ONCE, 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, kg, Start date: 08/25/15 10:23:00 C DT, Stop date: 08/25/15 10:23:00 CDT Start Date: 08/25/15 Stop Date: 08/25/15 Status: Deleted dexamethasone 2 mg, Route: PO, ONCE, 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, kg, Start date: 08/25/15 10:23:00 C DT, Stop date: 08/25/15 10:23:00 CDT Start Date: 08/25/15 Stop Date: 08/25/15 Status: Deleted dexamethasone 4 mg, 1 tab, Route: PO, Drug form: TAB, ONCE, Start date: 08/27/15 9:00:00 CDT, Stop date: 08/27/15 9:00:00 CDT Notes: Give with food.(Same As: Decadron) Start Date: 08/27/15 Stop Date: 08/27/15 Status: Completed dexamethasone 2 mg, 0.5 tab, Route: PO, Drug form: TAB, ONCE, Start date: 08/29/15 9:00:00 CDT , Stop date: 08/29/15 9:00:00 CDT Notes: Give with food.(Same As: Decadron) Start Date: 08/29/15 Stop Date: 08/27/15 Status: Canceled dexamethasone 4 mg, 1 mL, Route: IVP, Drug form: INJ, ONCE, Start date: 08/26/15 9:00:00 CDT, Stop date: 08/26/15 9:00:00 CDT Notes: Concentration: 4mg/ml Start Date: 08/26/15 Stop Date: 08/26/15 Status: Completed dexamethasone 2 mg, 0.5 tab, Route: PO, Drug form: TAB, ONCE, Start date: 08/28/15 9:00:00 CDT , Stop date: 08/28/15 9:00:00 CDT Notes: Give with food.(Same As: Decadron) Start Date: 08/28/15 Stop Date: 08/27/15 Status: Canceled Dextrose 5% with 0.9% NaCl IV 1000 mL 1,000 mL, Rate: 25 ml/hr, Infuse over: 40 hr, Route: IV, 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 kg , Total Volume: 1,000, Start date: 08/25/15 7:51:00 CDT, Duration: 30 day, Stop date: 09/24/15 7:50:00 CDT Start Date: 08/25/15 Stop Date: 08/25/15 Status: Discontinued Dextrose 50% Syringe 12.5 gm, 25 mL, Route: IVP, Drug Form: INJ, 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, kg, PRN, PRN B lood Glucose Results, Start date: 08/25/15 18:28:00 CDT, Duration: 30 day, Stop date: 09/24/15 18:27:00 CDT Start Date: 08/25/15 Stop Date: 08/27/15 Status: Discontinued Dextrose 50% Syringe 25 gm, 50 mL, Route: IVP, Drug Form: INJ, 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, kg, PRN, PRN Blo od Glucose Results, Start date: 08/25/15 18:28:00 CDT, Duration: 30 day, Stop da te: 09/24/15 18:27:00 CDT Start Date: 08/25/15 Stop Date: 08/27/15 Status: Discontinued Dilaudid 0.2 mg, 0.2 mL, Route: IVP, Drug form: INJ, Q3H, 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, kg, PRN O ther -See Comment, Start date: 08/25/15 10:23:00 CDT, Duration: 30 day, Stop keith e: 09/24/15 10:22:00 CDT Start Date: 08/25/15 Stop Date: 08/27/15 Status: Discontinued Dilaudid 0.5 mg, 0.5 mL, Route: IV, Drug form: INJ, Q3H, 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, kg, PRN Ot her -See Comment, Start date: 08/25/15 10:23:00 CDT, Duration: 30 day, Stop date : 09/24/15 10:22:00 CDT Start Date: 08/25/15 Stop Date: 08/27/15 Status: Discontinued diphenhydrAMINE 12.5 mg, 5 mL, Route: PO, Drug form: LIQ, Q6H, 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, kg, PRN Itc dai, Start date: 08/25/15 10:23:00 CDT, Duration: 30 day, Stop date: 09/24/15 1 0:22:00 CDT Notes: (Same as: Benadryl) Start Date: 08/25/15 Stop Date: 08/27/15 Status: Discontinued docusate 100 mg, 1 cap, Route: PO, Drug form: CAP, BID, 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, kg, Start d ate: 08/25/15 17:00:00 CDT, Duration: 30 day, Stop date: 09/24/15 9:00:00 CDT Notes: (Same as: Colace) (Do Not Crush) Start Date: 08/25/15 Stop Date: 08/27/15 Status: Discontinued docusate sodium 100 mg oral capsule 100 mg=1 cap, PO, Daily, # 60 cap, 3 Refill(s) Start Date: 08/14/15 Status: Ordered enoxaparin 40 mg, 0.4 mL, Route: SUB-Q, Drug form: INJ, [id number], 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, kg, Start date: 08/26/15 9:30:00 CDT, Duration: 30 day, Stop date: 09/24/15 9:30:00 CDT Notes: (Same as: Lovenox) Start Date: 08/26/15 Stop Date: 08/27/15 Status: Discontinued enoxaparin 40 mg/0.4 mL subcutaneous solution 40 mg=0.4 mL, SUB-Q, [id number], # 1 mL, 0 Refill(s), called to pharmacy Start Date: 08/27/15 Stop Date: 08/28/15 Status: Completed ePHEDrine (ANES) Route: IV, Drug form: INJ, ONCE, Stop date: 08/25/15 9:53:00 CDT Start Date: 08/25/15 Stop Date: 08/25/15 Status: Completed fentaNYL (ANES) Route: IV, Drug form: INJ, ONCE, Stop date: 08/25/15 9:48:00 CDT Start Date: 08/25/15 Stop Date: 08/25/15 Status: Completed Fish Oil 1200 mg oral capsule 1,200 mg=1 cap, PO, TID, 0 Refill(s) Start Date: 08/14/15 Status: Ordered gabapentin 300 mg oral capsule 300 mg=1 cap, PO, TID, # 90 cap, 0 Refill(s) Start Date: 08/14/15 Status: Ordered gabapentin 300 mg oral capsule 300 mg, 1 cap, Route: PO, Drug form: CAP, TID, 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, kg, Start d ate: 08/26/15 9:00:00 CDT, Duration: 30 day, Stop date: 09/24/15 17:00:00 CDT Notes: (Same as: Neurontin) Start Date: 08/26/15 Stop Date: 08/27/15 Status: Discontinued glucagon 1 mg, Route: IM, Drug form: PDR/INJ, PRN, 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, kg, PRN Blood Gl ucose Results, Start date: 08/25/15 18:28:00 CDT, Duration: 30 day, Stop date: 0 09/24/15 18:27:00 CDT Start Date: 08/25/15 Stop Date: 08/27/15 Status: Discontinued glycopyrrolate (ANES) Route: IV, Drug form: INJ, ONCE, Stop date: 08/25/15 10:38:00 CDT Start Date: 08/25/15 Stop Date: 08/25/15 Status: Completed hydrochlorothiazide-losartan 12.5 mg-100 mg oral tablet 1 tab, PO, Daily, # 30 tab, 0 Refill(s) Start Date: 08/14/15 Status: Ordered hydrochlorothiazide-losartan 12.5 mg-100 mg oral tablet 1 tab, Route: PO, Drug Form: TAB, 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, kg, Daily, Start date: 0 08/26/15 9:00:00 CDT, Duration: 30 day, Stop date: 09/24/15 9:00:00 CDT Start Date: 08/26/15 Stop Date: 08/25/15 Status: Deleted hydromorphone (ANES) Route: IV, Drug form: INJ, ONCE, Stop date: 08/25/15 8:58:00 CDT Start Date: 08/25/15 Stop Date: 08/25/15 Status: Completed insulin aspart 10 unit, 0.1 mL, Route: SUB-Q, Drug form: SOLN, TID-Before Meals, 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, kg, PRN Blood Glucose Results, Start date: 08/25/15 18:28:00 CDT, Durati on: 30 day, Stop date: 09/24/15 18:27:00 CDT Notes: Roll in palms of hands gently; Do not shake vigorously. (Same as: Naz Pritchett)"single patient use only"WASTE: F/P - Black; E - Municipal Trash Bin Stable f or 28 days at room temperature.Expires in days from Date Start Date: 08/25/15 Stop Date: 08/27/15 Status: Discontinued insulin aspart 8 unit, 0.08 mL, Route: SUB-Q, Drug form: SOLN, TID-Before Meals, 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, kg, PRN Blood Glucose Results, Start date: 08/25/15 18:28:00 CDT, Durati on: 30 day, Stop date: 09/24/15 18:27:00 CDT Notes: Roll in palms of hands gently; Do not shake vigorously. (Same as: NovoGAB G)"single patient use only"WASTE: F/P - Black; E - Municipal Trash Bin Stable f or 28 days at room temperature.Expires in days from Date Start Date: 08/25/15 Stop Date: 08/27/15 Status: Discontinued insulin aspart 2 unit, 0.02 mL, Route: SUB-Q, Drug form: SOLN, TID-Before Meals, 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, kg, PRN Blood Glucose Results, Start date: 08/25/15 18:28:00 CDT, Durati on: 30 day, Stop date: 09/24/15 18:27:00 CDT Notes: Roll in palms of hands gently; Do not shake vigorously. (Same as: Naz Pritchett)"single patient use only"WASTE: F/P - Black; E - Municipal Trash Bin Stable f or 28 days at room temperature.Expires in days from Date Start Date: 08/25/15 Stop Date: 08/27/15 Status: Discontinued insulin aspart 4 unit, 0.04 mL, Route: SUB-Q, Drug form: SOLN, TID-Before Meals, 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, kg, PRN Blood Glucose Results, Start date: 08/25/15 18:28:00 CDT, Durati on: 30 day, Stop date: 09/24/15 18:27:00 CDT Notes: Roll in palms of hands gently; Do not shake vigorously. (Same as: Naz Pritchett)"single patient use only"WASTE: F/P - Black; E - Municipal Trash Bin Stable f or 28 days at room temperature.Expires in days from Date Start Date: 08/25/15 Stop Date: 08/27/15 Status: Discontinued insulin aspart 6 unit, 0.06 mL, Route: SUB-Q, Drug form: SOLN, TID-Before Meals, 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, kg, PRN Blood Glucose Results, Start date: 08/25/15 18:28:00 CDT, Durati on: 30 day, Stop date: 09/24/15 18:27:00 CDT Notes: Roll in palms of hands gently; Do not shake vigorously. (Same as: Naz Pritchett)"single patient use only"WASTE: F/P - Black; E - Municipal Trash Bin Stable f or 28 days at room temperature.Expires in days from Date Start Date: 08/25/15 Stop Date: 08/27/15 Status: Discontinued insulin aspart 2 unit, 0.02 mL, Route: SUB-Q, Drug form: SOLN, Bedtime, 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, k g, PRN Blood Glucose Results, Start date: 08/25/15 18:28:00 CDT, Duration: 30 da y, Stop date: 09/24/15 18:27:00 CDT Notes: Roll in palms of hands gently; Do not shake vigorously. (Same as: Naz Pritchett)"single patient use only"WASTE: F/P - Black; E - Municipal Trash Bin Stable f or 28 days at room temperature.Expires in days from Date Start Date: 08/25/15 Stop Date: 08/27/15 Status: Discontinued insulin aspart 3 unit, 0.03 mL, Route: SUB-Q, Drug form: SOLN, Bedtime, 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, k g, PRN Blood Glucose Results, Start date: 08/25/15 18:28:00 CDT, Duration: 30 da y, Stop date: 09/24/15 18:27:00 CDT Notes: Roll in palms of hands gently; Do not shake vigorously. (Same as: Naz Pritchett)"single patient use only"WASTE: F/P - Black; E - Municipal Trash Bin Stable f or 28 days at room temperature.Expires in days from Date Start Date: 08/25/15 Stop Date: 08/27/15 Status: Discontinued insulin aspart 4 unit, 0.04 mL, Route: SUB-Q, Drug form: SOLN, Bedtime, 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, k g, PRN Blood Glucose Results, Start date: 08/25/15 18:28:00 CDT, Duration: 30 da y, Stop date: 09/24/15 18:27:00 CDT Notes: Roll in palms of hands gently; Do not shake vigorously. (Same as: Naz Pritchett)"single patient use only"WASTE: F/P - Black; E - Municipal Trash Bin Stable f or 28 days at room temperature.Expires in days from Date Start Date: 08/25/15 Stop Date: 08/27/15 Status: Discontinued insulin aspart 1 unit, 0.01 mL, Route: SUB-Q, Drug form: SOLN, Bedtime, 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, k g, PRN Blood Glucose Results, Start date: 08/25/15 18:28:00 CDT, Duration: 30 da y, Stop date: 09/24/15 18:27:00 CDT Notes: Roll in palms of hands gently; Do not shake vigorously. (Same as: NovoLO G)"single patient use only"WASTE: F/P - Black; E - Municipal Trash Bin Stable f or 28 days at room temperature.Expires in days from Date Start Date: 08/25/15 Stop Date: 08/27/15 Status: Discontinued Lactated Ringers Injection IV (ANES) (ANES) Route: IV, Total Volume: 1,000, Start date: 08/25/15 7:46:00 CDT, Stop date: 8:46:00 CDT Start Date: 08/25/15 Stop Date: 08/25/15 Status: Completed Lactated Ringers Injection IV 1000 mL 1,000 mL, Rate: 25 ml/hr, Infuse over: 40 hr, Route: IV, 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 kg , Total Volume: 1,000, Start date: 08/25/15 7:51:00 CDT, Duration: 30 day, Stop date: 09/24/15 7:50:00 CDT Start Date: 08/25/15 Stop Date: 08/25/15 Status: Discontinued lidocaine (ANES) Route: IV, Drug form: INJ, ONCE, Stop date: 08/25/15 8:58:00 CDT Start Date: 08/25/15 Stop Date: 08/25/15 Status: Completed metFORMIN 1000 mg oral tablet, extended release 1,000 mg=1 tab, PO, BID, # 60 tab, 0 Refill(s) Start Date: 08/14/15 Status: Ordered metFORMIN 1000 mg oral tablet, extended release 1,000 mg, 2 tab, Route: PO, Drug form: ERTAB, BID, 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, kg, Sta rt date: 08/26/15 9:00:00 CDT, Duration: 30 day, Stop date: 09/24/15 17:00:00 CD T Notes: (Same as: Glucophage XR)"Do Not Crush" Start Date: 08/26/15 Stop Date: 08/27/15 Status: Discontinued Microzide 12.5 mg, 1 cap, Route: PO, Drug form: CAP, Daily, Start date: 08/26/15 9:00:00 C DT, Duration: 30 day, Stop date: 09/24/15 9:00:00 CDT Notes: (Same as: Microzide) With food. Start Date: 08/26/15 Stop Date: 08/27/15 Status: Discontinued multivitamin Daily, 0 Refill(s) Start Date: 08/14/15 Status: Ordered neostigmine (ANES) Route: IV, Drug form: INJ, ONCE, Stop date: 08/25/15 10:38:00 CDT Start Date: 08/25/15 Stop Date: 08/25/15 Status: Completed Duchesne 10/325 oral tablet 1 tab, Route: PO, Drug Form: TAB, 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, kg, Q3H, PRN Pain Score 4-6, Start date: 08/25/15 10:23:00 CDT, Duration: 30 day, Stop date: 09/24/15 10 :22:00 CDT Notes: Do not exceed 4gm/day of acetaminophen. (Same as: Duchesne 325/10) Start Date: 08/25/15 Stop Date: 08/26/15 Status: Discontinued Duchesne 5/325 oral tablet 1 tab, Route: PO, Drug Form: TAB, 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, kg, Q3H, PRN Pain Score 1-3, Start date: 08/25/15 10:23:00 CDT, Duration: 30 day, Stop date: 09/24/15 10 :22:00 CDT Notes: (Same as: Duchesne 325/5) Do not exceed 4gm/day of acetaminophen. Start Date: 08/25/15 Stop Date: 08/27/15 Status: Discontinued Normosol-R PH 7.4 1000 mL 1,000 mL, Rate: 25 ml/hr, Infuse over: 40 hr, Route: IV, 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 kg , Total Volume: 1,000, Start date: 08/25/15 7:51:00 CDT, Duration: 30 day, Stop date: 09/24/15 7:50:00 CDT Start Date: 08/25/15 Stop Date: 08/25/15 Status: Discontinued ondansetron (ANES) Route: IV, Drug form: INJ, ONCE, Stop date: 08/25/15 10:23:00 CDT Start Date: 08/25/15 Stop Date: 08/25/15 Status: Completed oxyCONTIN 10 mg, Route: PO, Drug form: ERTAB, ONCALL, 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, kg, Start date : 08/25/15 7:00:00 CDT, Duration: 30 day, Stop date: 09/24/15 6:59:00 CDT Start Date: 08/25/15 Stop Date: 08/25/15 Status: Completed OxyIR 10 mg, 2 tab, Route: PO, Drug form: TAB, Q3H, PRN Pain Score 4-6, Start date: 11:25:00 CDT, Duration: 30 day, Stop date: 09/25/15 11:24:00 CDT Notes: (Same as: OxyIR) Start Date: 08/26/15 Stop Date: 08/26/15 Status: Deleted OxyIR 10 mg, 2 tab, Route: PO, Drug form: TAB, Q3H, PRN Pain Score 7-10, Start date: 0 08/26/15 11:26:00 CDT, Duration: 30 day, Stop date: 09/25/15 11:25:00 CDT Notes: (Same as: OxyIR) Start Date: 08/26/15 Stop Date: 08/27/15 Status: Discontinued pantoprazole 40 mg, 1 tab, Route: PO, Drug form: ECTAB, Daily, 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, kg, Star t date: 08/26/15 9:00:00 CDT, Duration: 30 day, Stop date: 09/24/15 9:00:00 CDT Notes: Tablet should not be chewed or crushed.(Same as: Protonix) Start Date: 08/26/15 Stop Date: 08/27/15 Status: Discontinued pantoprazole 40 mg oral enteric coated tablet 40 mg=1 tab, PO, Daily, # 30 tab, 0 Refill(s) Start Date: 08/14/15 Status: Ordered Percocet 10/325 oral tablet 1 tab, Route: PO, Drug Form: TAB, 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, kg, Q3H, PRN Pain Score 7-10, Start date: 08/25/15 10:23:00 CDT, Duration: 30 day, Stop date: 09/24/15 1 0:22:00 CDT Notes: Do not exceed 4gm/day of acetaminophen. (Same as: Percocet-10/325) Start Date: 08/25/15 Stop Date: 08/26/15 Status: Discontinued potassium chloride 20 mEq oral tablet, extended release 20 mEq, 1 tab, Route: PO, Drug form: ERTAB, ONCE, Dosing Weight 93.182, kg, Prio rity: NOW, Start date: 08/26/15 16:21:00 CDT, Stop date: 08/26/15 16:21:00 CDT Notes: (Same as: K-Dur 20)"Do Not Crush" With food and full glass of water Start Date: 08/26/15 Stop Date: 08/26/15 Status: Completed propofol (ANES) Route: IV, Drug form: INJ, ONCE, Stop date: 08/25/15 8:58:00 CDT Start Date: 08/25/15 Stop Date: 08/25/15 Status: Completed pt own Tradjenta pt own Tradjenta, 5 mg, Drug form: MISC, Route: PO, Daily, 08/26/15 13:00:00 CDT , Duration: 30 day, Stop date: 09/25/15 9:00:00 CDT Notes: non-formulary Start Date: 08/26/15 Stop Date: 08/27/15 Status: Discontinued AUDREY Pericapsular INJ 100 mL, Route: InFILtration(local), Drug Form: INJ, 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, kg, [employer]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, Start date: 08/25/15 7:00:00 CDT, Duration: 30 day, Stop date: 09/24/15 6: 59:00 CDT Notes: NOT FOR IV useRopivacaine 5 mg/mL (49.25 mL) Epinephrine 1 mg/mL (0.5 mL) Clonidine 0.1 mg/mL (0.8 mL) Ketorolac 30 mg/mL (1 mL) Normal Saline 48 .45 mL Start Date: 08/25/15 Stop Date: 08/27/15 Status: Completed rocuronium (ANES) Route: IV, Drug form: INJ, ONCE, Stop date: 08/25/15 8:58:00 CDT Start Date: 08/25/15 Stop Date: 08/25/15 Status: Completed Saline Flush 0.9% 10 ml, Route: IVP, Drug Form: INJ, 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, kg, PRN, PRN Line Flush , Start date: 08/26/15 10:23:00 CDT, Duration: 30 day, Stop date: 09/25/15 10:22 :00 CDT Notes: (Same as: BD Posiflush) Start Date: 08/26/15 Stop Date: 08/27/15 Status: Discontinued Saline Flush 0.9% 10 ml, Route: IVP, Drug Form: INJ, 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, kg, Q12H, Start date: 0 08/26/15 21:00:00 CDT, Duration: 30 day, Stop date: 09/25/15 9:00:00 CDT Notes: (Same as: BD Posiflush) Start Date: 08/26/15 Stop Date: 08/27/15 Status: Discontinued Sodium Chloride 0.9% IV 1000 mL 1,000 mL, Rate: 25 ml/hr, Infuse over: 40 hr, Route: IV, 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 kg , Total Volume: 1,000, Start date: 08/25/15 7:51:00 CDT, Duration: 30 day, Stop date: 09/24/15 7:50:00 CDT Start Date: 08/25/15 Stop Date: 08/25/15 Status: Discontinued Toprol-XL 50 mg oral tablet, extended release 50 mg=1 tab, PO, BID, 1 tab at 2pm then 1 tab at 10pm, # 30 tab, 0 Refill(s) Start Date: 08/14/15 Status: Ordered Toprol-XL 50 mg oral tablet, extended release 50 mg, 1 tab, Route: PO, Drug form: ERTAB, BID, Start date: 08/25/15 22:00:00 CD T, Duration: 30 day, Stop date: 09/24/15 14:00:00 CDT Notes: (Same as: Toprol XL) May split tab, but do not crush. Start Date: 08/25/15 Stop Date: 08/27/15 Status: Discontinued Tradjenta 5 mg, Route: PO, Drug form: TAB, Daily, 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, kg, Start date: 9:00:00 CDT Start Date: 08/26/15 Stop Date: 08/26/15 Status: Deleted Tradjenta 5 mg oral tablet 5 mg=1 tab, PO, Daily, # 30 tab, 3 Refill(s) Start Date: 08/14/15 Status: Ordered tramadol 50 mg oral tablet 50 mg=1 tab, PO, BID, # 180 tab, 1 Refill(s) Start Date: 08/14/15 Stop Date: 11/12/15 Status: Ordered tranexamic acid 1,000 mg, Route: IV, ONCE, 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, kg, Start date: 08/25/15 10:23: 00 CDT, Stop date: 08/25/15 10:23:00 CDT Start Date: 08/25/15 Stop Date: 08/25/15 Status: Deleted tranexamic acid (ANES) Route: IV, Drug form: INJ, ONCE, Stop date: 08/25/15 10:23:00 CDT Start Date: 08/25/15 Stop Date: 08/25/15 Status: Completed tranexamic acid + Sodium Chloride 0.9% IV 90 mL 1,000 mg, 10 mL, Route: IV, ONCALL, 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, kg, Start date: 7:00:00 CDT, Duration: 1 day, Stop date: 08/26/15 6:59:00 CDT Notes: (Same As: Cyklokapron) Start Date: 08/25/15 Stop Date: 08/27/15 Status: Completed Tylenol 325 mg, 1 tab, Route: PO, Drug form: TAB, Q3H, PRN Pain Score 4-6, Start date: 0 08/26/15 11:25:00 CDT, Duration: 30 day, Stop date: 09/25/15 11:24:00 CDT Notes: Do not exceed 4 gm/day. (Same as: Tylenol) Start Date: 08/26/15 Stop Date: 08/26/15 Status: Deleted Tylenol 325 mg, 1 tab, Route: PO, Drug form: TAB, Q3H, PRN Pain Score 7-10, Start date: 08/26/15 11:27:00 CDT, Duration: 30 day, Stop date: 09/25/15 11:26:00 CDT Notes: Do not exceed 4 gm/day. (Same as: Tylenol) Start Date: 08/26/15 Stop Date: 08/27/15 Status: Discontinued Tylenol 1,000 mg, Route: PO, ONCALL, 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, kg, Start date: 08/25/15 7:00 :00 CDT, Duration: 30 day, Stop date: 09/24/15 6:59:00 CDT Start Date: 08/25/15 Stop Date: 08/25/15 Status: Completed vancomycin 1,250 mg, 250 mL, Route: IVPB, Drug form: INJ, ONCALL, 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, kg, Start date: 08/25/15 7:00:00 CDT, Duration: 30 day, Stop date: 09/24/15 6:59:00 CDT Notes: TIME CRITICAL MEDICATIONSame as: Vancocin-NS (premixed)Infusion rate< 1000 mg: infuse over 1 [id number] - 1500 mg: infuse over 1.5 [id number] - 2000 mg: infuse over 2 hours> 2001 mg: infuse over 2.5 hours Start Date: 08/25/15 Stop Date: 08/27/15 Status: Completed vancomycin (ANES) Route: IV, Drug form: INJ, ONCE, Stop date: 08/25/15 9:03:00 CDT Start Date: 08/25/15 Stop Date: 08/25/15 Status: Completed vancomycin (SCIP) + Sodium Chloride 0.9% IV 250 mL 1,000 mg, Route: IVPB, [id number], 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, kg, Time Critical Medicati on, Start date: 08/25/15 20:00:00 CDT, Duration: 2 doses or times, Stop date: 8:00:00 CDT, Pharmacy to adjust dose for renal function Notes: TIME CRITICAL MEDICATION(Same As: Vancocin)Infusion rate< 1000 mg: infuse over 1 [id number] - 1500 mg: infuse over 1.5 [id number] - 2000 mg: infuse over 2 hours> 2001 mg: infuse over 2.5 hours MEDICATION WASTE Product Size: 1000 mgProduct Wasted: ___ mg Start Date: 08/25/15 Stop Date: 08/26/15 Status: Completed Vitamin B12 1000 mcg oral tablet 1,000 microgram=1 tab, PO, Daily, # 30 tab, 0 Refill(s) Start Date: 08/14/15 Status: Ordered Vitamin C with Fiona Hips 500 mg oral capsule 500 mg=1 cap, PO, Daily, # 30 cap, 0 Refill(s) Start Date: 08/14/15 Status: Ordered Vitamin D3 1000 intl units oral tablet 1,000 IntlUnit=1 tab, PO, Daily, # 30 tab, 0 Refill(s) Start Date: 08/14/15 Status: Ordered Zofran 4 mg, 2 mL, Route: IV, Drug form: INJ, Q8H, 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, kg, Start date : 08/25/15 16:00:00 CDT, Duration: 3 doses or times, Stop date: 08/26/15 8:00:00 CDT Notes: (Same as: Zofran) MEDICATION WASTE Product Size: 4 mgProduct Was jess: ___ mg Start Date: 08/25/15 Stop Date: 08/26/15 Status: Completed Zofran 4 mg, 2 mL, Route: IV, Drug form: INJ, Q6H, 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, kg, PRN Nausea , Start date: 08/25/15 10:23:00 CDT, Duration: 30 day, Stop date: 09/24/15 10:22 :00 CDT Notes: (Same as: Zofran) MEDICATION WASTE Product Size: 4 mgProduct Was jess: ___ mg Start Date: 08/25/15 Stop Date: 08/27/15 Status: Discontinued Results BLOOD BANK RESULTS 1 2 3 Most recent to oldest [Reference Range]: A POS *Unknown* (08/25/15 6:37 AM) A POS *Unknown* (08/14/15 12:50 PM) ABO/Rh Negative (08/25/15 6:37 AM) Negative (08/14/15 12:50 PM) Antibody Scrn ELECTROLYTES 1 2 3 Most recent to oldest [Reference Range]: 140 mEq/L (08/27/15 4:43 AM) 137 mEq/L (08/26/15 6:27 AM) 135 mEq/L (08/14/15 12:50 PM) Sodium Lvl [135-145 mEq/L] 3.6 mEq/L (08/27/15 4:43 AM) 3.4 mEq/L *LOW* (08/26/15 6:27 AM) 3.8 mEq/L (08/14/15 12:50 PM) Potassium Lvl [3.5-5.1 mEq/L] 102 mEq/L (08/27/15 4:43 AM) 101 mEq/L (08/26/15 6:27 AM) 97 mEq/L (08/14/15 12:50 PM) Chloride Lvl [95-109 mEq/L] 30 mEq/L (08/27/15 4:43 AM) 30 mEq/L (08/26/15 6:27 AM) 31 mEq/L (08/14/15 12:50 PM) CO2 [24-32 mEq/L] 11.6 mEq/L (08/27/15 4:43 AM) 9.4 mEq/L *LOW* (08/26/15 6:27 AM) 10.8 mEq/L (08/14/15 12:50 PM) AGAP [10.0-20.0 mEq/L] CHEM PANEL 1 2 3 Most recent to oldest [Reference Range]: 0.45 mg/dL *LOW* (08/27/15 4:43 AM) 0.61 mg/dL (08/26/15 6:27 AM) 0.56 mg/dL (08/14/15 12:50 PM) Creatinine Lvl [0.50-1.40 mg/dL] 105 mL/min/1.73m2 1 *NA* (08/27/15 4:43 AM) 95 mL/min/1.73m2 2 *NA* (08/26/15 6:27 AM) 98 mL/min/1.73m2 3 *NA* (08/14/15 12:50 PM) eGFR 11 mg/dL (08/27/15 4:43 AM) 10 mg/dL (08/26/15 6:27 AM) 12 mg/dL (08/14/15 12:50 PM) BUN [7-22 mg/dL] 111 mg/dL *HI* (08/27/15 4:43 AM) 128 mg/dL *HI* (08/26/15 6:27 AM) 108 mg/dL *HI* (08/14/15 12:50 PM) Glucose Lvl [70-99 mg/dL] 8.4 mg/dL *LOW* (08/27/15 4:43 AM) 8.3 mg/dL *LOW* (08/26/15 6:27 AM) 9.8 mg/dL (08/14/15 12:50 PM) Calcium Lvl [8.5-10.5 mg/dL] 1.5 mg/dL *LOW* (08/27/15 4:43 AM) Magnesium Lvl [1.8-2.4 mg/dL] 1Result Comment: The eGFR is calculated using the [...] from the National Kid[employer] Education Program ( NKDEP) which additionally recommends that when the eGFR is used in patients with extremes of body mass index for purposes of drug dosing, the eGFR should be mul tiplied by the estimated BMI. 2Result Comment: The eGFR is calculated using the [...] from the National Kid[employer] Education Program ( NKDEP) which additionally recommends that when the eGFR is used in patients with extremes of body mass index for purposes of drug dosing, the eGFR should be mul tiplied by the estimated BMI. 3Result Comment: The eGFR is calculated using the [...] from the National Kid[employer] Disease Education Program ( NKDEP) which additionally recommends that when the eGFR is used in patients with extremes of body mass index for purposes of drug dosing, the eGFR should be mul tiplied by the estimated BMI. SPECIAL CHEMISTRY 1 2 3 Most recent to oldest [Reference Range]: 6.1 % *HI* (08/14/15 1:46 PM) Hgb A1C [<=5.6 %] URINE AND STOOL 1 2 3 Most recent to oldest [Reference Range]: Clear (08/14/15 12:51 PM) UA Turbidity [Clear] Ltyellow *NA* (08/14/15 12:51 PM) UA Color 7.0 (08/14/15 12:51 PM) UA pH [5.0-8.0] 1.008 (08/14/15 12:51 PM) UA Spec Grav [<=1.030] Negative mg/dL *NA* (08/14/15 12:51 PM) UA Glucose [Negative mg/dL] Negative (08/14/15 12:51 PM) UA Blood [Negative] Negative mg/dL *NA* (08/14/15 12:51 PM) UA Ketones [Negative mg/dL] Negative mg/dL (08/14/15 12:51 PM) UA Protein [Negative mg/dL] <=1.0 mg/dL *NA* (08/14/15 12:51 PM) UA Urobilinogen [0.1-1.0 mg/dL] Negative *NA* (08/14/15 12:51 PM) UA Bili [Negative] Negative (08/14/15 12:51 PM) UA Leuk Est [Negative] Negative (08/14/15 12:51 PM) UA Nitrite [Negative] 1 /HPF (08/14/15 12:51 PM) UA WBC [0-5 /HPF] 1 /HPF (08/14/15 12:51 PM) UA RBC [0-2 /HPF] Occasional /LPF *NA* (08/14/15 12:51 PM) UA Sq Epi [Few /LPF] HEMATOLOGY 1 2 3 Most recent to oldest [Reference Range]: 13.4 K/CMM *HI* (08/27/15 4:43 AM) 11.8 K/CMM *HI* (08/26/15 6:27 AM) 8.2 K/CMM (08/14/15 12:50 PM) WBC [3.7-10.4 K/CMM] 3.36 M/CMM *LOW* (08/27/15 4:43 AM) 3.30 M/CMM *LOW* (08/26/15 6:27 AM) 4.19 M/CMM *LOW* (08/14/15 12:50 PM) RBC [4.20-5.40 M/CMM] 10.1 g/dL *LOW* (08/27/15 4:43 AM) 9.9 g/dL *LOW* (08/26/15 6:27 AM) 12.7 g/dL (08/14/15 12:50 PM) Hgb [12.0-16.0 g/dL] 30.1 % *LOW* (08/27/15 4:43 AM) 29.7 % *LOW* (08/26/15 6:27 AM) 37.4 % (08/14/15 12:50 PM) Hct [36.0-48.0 %] 89.6 fL (08/27/15 4:43 AM) 89.9 fL (08/26/15 6:27 AM) 89.4 fL (08/14/15 12:50 PM) MCV [80.0-98.0 fL] 30.1 pg (08/27/15 4:43 AM) 30.1 pg (08/26/15 6:27 AM) 30.3 pg (08/14/15 12:50 PM) MCH [27.0-31.0 pg] 33.6 g/dL (08/27/15 4:43 AM) 33.5 g/dL (08/26/15 6:27 AM) 33.9 g/dL (08/14/15 12:50 PM) MCHC [32.0-36.0 g/dL] 13.5 % (08/27/15 4:43 AM) 13.4 % (08/26/15 6:27 AM) 13.6 % (08/14/15 12:50 PM) RDW [11.5-14.5 %] 293 K/CMM (08/27/15 4:43 AM) 264 K/CMM (08/26/15 6:27 AM) 342 K/CMM (08/14/15 12:50 PM) Platelet [133-450 K/CMM] 7.8 fL (08/27/15 4:43 AM) 7.9 fL (08/26/15 6:27 AM) 7.3 fL *LOW* (08/14/15 12:50 PM) MPV [7.4-10.4 fL] 68.0 % (08/27/15 4:43 AM) 78.5 % *HI* (08/26/15 6:27 AM) 61.6 % (08/14/15 12:50 PM) Segs [45.0-75.0 %] 1.0 % (08/27/15 4:43 AM) Bands [0.0-11.0 %] 26.0 % (08/27/15 4:43 AM) 10.8 % *LOW* (08/26/15 6:27 AM) 28.9 % (08/14/15 12:50 PM) Lymphocytes [20.0-40.0 %] 0.0 % (08/27/15 4:43 AM) Atypical Lymphs [<=0.0 %] 3.0 % (08/27/15 4:43 AM) 10.3 % (08/26/15 6:27 AM) 7.3 % (08/14/15 12:50 PM) Monocytes [2.0-12.0 %] 1.0 % (08/27/15 4:43 AM) 1.2 % (08/14/15 12:50 PM) Eosinophils [0.0-4.0 %] 1.0 % (08/27/15 4:43 AM) 0.4 % (08/26/15 6:27 AM) 1.0 % (08/14/15 12:50 PM) Basophils [0.0-1.0 %] 9.2 K/CMM *HI* (08/27/15 4:43 AM) 9.3 K/CMM *HI* (08/26/15 6:27 AM) 5.0 K/CMM (08/14/15 12:50 PM) Segs-Bands # [1.5-8.1 K/CMM] 3.5 K/CMM (08/27/15 4:43 AM) 1.3 K/CMM (08/26/15 6:27 AM) 2.4 K/CMM (08/14/15 12:50 PM) Lymphocytes # [1.0-5.5 K/CMM] 0.4 K/CMM (08/27/15 4:43 AM) 1.2 K/CMM *HI* (08/26/15 6:27 AM) 0.6 K/CMM (08/14/15 12:50 PM) Monocytes # [0.0-0.8 K/CMM] 0.1 K/CMM (08/27/15 4:43 AM) 0.1 K/CMM (08/14/15 12:50 PM) Eosinophils # [0.0-0.5 K/CMM] 0.1 K/CMM (08/27/15 4:43 AM) 0.1 K/CMM (08/14/15 12:50 PM) Basophils # [0.0-0.2 K/CMM] 100 *NA* (08/27/15 4:43 AM) Tot Cell Ct Normal (08/27/15 4:43 AM) RBC Morph Normal (08/27/15 4:43 AM) Plt Morph 15.2 seconds *HI* (08/26/15 6:27 AM) 13.5 seconds (08/14/15 12:50 PM) PT [12.0-14.7 seconds] 1.17 (08/26/15 6:27 AM) 1.00 (08/14/15 12:50 PM) INR [0.85-1.17] 28.5 seconds (08/26/15 6:27 AM) 28.7 seconds (08/14/15 12:50 PM) PTT [22.9-35.8 seconds] BACTERIAL - SEROLOGY 1 2 3 Most recent to oldest [Reference Range]: Negative (08/14/15 12:50 PM) MRSA by PCR Immunizations No data available for this section Procedures No data available for this section Social History Social History Type Response Substance Abuse Use: None. Alcohol Never Smoking Status Never smoker; Exposure to Tobacco Smoke None; Cigarette Smoking Last 365 Days No; Reg Smoking Cessation Counseling No Assessment and Plan Extracted from: Title: Clinical Document Author: Humphrey Phoenix MD Date: [...] mg SubQ Q24hr for 10 days post-op Duchesne 10/325 1-2 tab PO Q4-6Hr PRN Pain Continue all home medcations Contact [facility] if: Fever > 101.5 Increasing pain Redness along incision purulent drainage Extracted from: Title: Ortho PN POD#2 Author: Humphrey Phoenix MD Date: 08/27/15 Progress Daily [facility] Completed: Jul, 11:57 by Humphrey Phoenix MD RM: 245 - 1P, SE [place] [id number] (: 1950) F Attending: Humphrey Phoenix MDPhone: Service: Orthopedic Surgery Service Reason for Admission: TOTAL KNEE ARTHROPLASTY Working DRG: Bone diseases & arthropathies w/o GROUP HOME Code status: Full Code [Ordered]Current diet: Isolation: None Documented Allergies: NKDA SUBJECTIVE no complaints, minimal apin OBJECTIVE incision CDI LT I m/l/p/d/fdws +GS TA FHL EHL CR brisk no clinical signs of DVT ASSESSMENT & EXAM s/p Right TKA POD#1 PLAN & TREATMENT s/p Right TKA, POD#2 DIAGNOSES & PROBLEMS s/p abx prophylaxis VSS, Hg stable acute blood loss anemia lovenox fro DVT prophylaxis OOB w/ PT d/c home today, hold off on outpatient PT 24hr Labs 08/26 1047 Glucose SSR679 H 08/26 0642 Glucose WHR568 H 08/26 0443 Magnesium Lvl1.5 L Glucose Sut543 H BUN11 Creatinine Lvl0.45 L Sodium Olr451 Potassium Lvl3.6 Chloride Psc574 CO230 AGAP11.6 Calcium Lvl8.4 L [id number] WBC13.4 H RBC3.36 L Hgb10.1 L Hct30.1 L MCV89.6 MCH30.1 MCHC33.6 RDW13.5 Mknmcrth224 MPV7.8 Segs68.0 Bands1.0 Vpzkwotsfld05.0 Atypical Lymphs0.0 Monocytes3.0 Eosinophils1.0 Basophils1.0 Segs-Bands #9.2 H Lymphocytes #3.5 Monocytes #0.4 Eosinophils #0.1 Basophils #0.1 RBC MorphNormal Plt MorphNormal Tot Cell Ct100 08/25 2135 Glucose JHL570 H 08/25 1545 Glucose XJR242 H VitalsTmp(F)[id number] 08/26 11:3397.078305/455613--- 08/26 08:0098.668683/297523 21% 08/26 06:40 1694 21% 08/26 04:1597.996396/445871--- 08/26 00:1598.612853/256169--- 24 Hr Tmax: 98.4F (36.89c) at 08/25 16:02Vital Signs are the last 5 in the past 48 hours. DateWt(kg)Wt(lb)Ht(cm)Ht(in)Method 08/24 93.18 205.00Measured 08/13 (initial) 87.98 193.56Measured 62.56 64.00Stated I&ORecordInOutBal 08/2723hr Tot 10 0 10 08/2623hr Tot 983 0 983 Medications (37) Active Scheduled Meds (13): 08/26/15 amLODIPine 5 mg PO Daily 08/26/15 aspirin 81 mg PO Daily 08/25/15 atorvastatin 40 mg PO Bedtime 08/25/15 docusate 100 mg PO BID 08/26/15 enoxaparin 40 mg SUB-Q [id number] 08/26/15 gabapentin (gabapentin 300 mg oral capsule) [...] Syringe) 25 gm IVP PRN 08/25/15 acetaminophen-hydrocodone (Duchesne 5/325 oral tablet) 1 tab PO Q3H 08/26/15 acetaminophen-hydrocodone (acetaminophen-hydrocodone 325 mg-10 mg oral tablet) 1 tab PO Q3H 08/26/15 acetaminophen (Tylenol) 325 mg PO Q3H 08/25/15 bisacodyl 10 mg SD Daily 08/25/15 diphenhydrAMINE 12.5 mg PO Q6H [...] 1,000 mL) 1,000 mL 75 ml/hr Extracted from: Title: Clinical Document Author: Humphrey Phoenix MD Date: 08/25/15 TKA Operative Note Date: 08/25/2015 Location: [facility] Attending: Humphrey Phoenix MD Pre-op dx: Right knee osteoarthritis Post-op dx: Right knee osteoarthritis, patella baja, arthrofibrosis Procedure: Right total knee arthroplasty Anesthesiologist: Jeanie Morrissey CRNA Anesthesia: General, Dilaudid Spinal Electronic Gluing Machine Operator: HEATH Iqbal T-time: 130 min EBL: minimal UOP: no garrett IVF: see anesthesia note Transfusion: none required Implants: [employer]illo [employer] Nephew Femur: 5, N, Legion, Oxninium Tibia: 5, Carmen 2 Polyethylene: 13 mm, dished, x-link Patella: 29 mm Cement: [place] Simplex Abx Cement, 2 packs Resections: Femur: [...] The wound was dressed with dermabond, adaptic, 4x4 s, abd pads, and an vianey wrap. Tourniquet was released after the dressing was placed and tranexemic acid was given during the closure. The entire procedure was completed with the attending surgeon. Laminar air flow body exhaust suits were worn for the entire procedure. A certified surgical first assistant was utilized for the entire procedure. The certified surgical first assistant aided in positioning, retraction, implant sizing/implementation, and closure. The certified surgical first assistant decreased surgical time and therefore esvin-operative morbidity. Post-op Dispo: Patient will be admitted to the floor, receive 24 hours of intravenous antibiotics, and DVT prophylaxis. The patient can weight bear as tolerated with a knee immobilizer. 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 Extracted from: Title: Clinical Document Author: Humphrey Phoenix MD Date: [...] of the right knee which demonstrates end-stage zekk-yu-momd articulation in the medial compartment and periarticular osteophytes, qjhc-lw-kqpd articulation, subchondral sclerosis in the arterial compartment [...]
--- OUTSIDE RECORDS SUMMARY | 2019-01-17 20:09 | XMS REPORT | Summary of Care ---
Author Author [facility] Organization [facility] Address Unknown Phone Unavailable Encounter HQ Juliano_sagar(FIN) [id number] Date(s): 01/26/16 - 01/27/16 [facility] [address] [place] [address]- [phone] Discharge Disposition: Home or Self Care Attending Physician: Humphrey Phoenix MD Admitting Physician: Humphrey Phoenix MD Referring Physician: Humphrey Phoenix MD Vital Signs 1 2 3 Most recent to oldest [Reference Range]: 162.56 cm (01/08/16 12:16 PM) Height 98 DegF (01/27/16 12:03 PM) 98.3 DegF (01/27/16 8:00 AM) 97.9 DegF (01/27/16 4:51 AM) Temperature Oral [96.4-99.1 DegF] 103/63 mmHg (01/27/16 12:03 PM) 125/74 mmHg (01/27/16 9:14 AM) 110/68 mmHg (01/27/16 8:00 AM) Blood Pressure [90-140/60-90 mmHg] 16 BRMIN (01/27/16 12:03 PM) 16 BRMIN (01/27/16 8:00 AM) 18 BRMIN (01/27/16 7:10 AM) Respiratory Rate [14-20 BRMIN] 93 bpm (01/27/16 12:03 PM) 96 bpm (01/27/16 9:14 AM) 91 bpm (01/27/16 8:00 AM) Peripheral Pulse Rate [60-100 bpm] 88.636 kg (01/08/16 12:16 PM) Weight 33.54 m2 (01/08/16 12:16 PM) Body Mass Index Problem List Condition Effective Dates Status Health Status Informant Acid Active reflux(Confirmed) Diabetes Active mellitus(Confirmed) Hyperlipidemia(Confi Active rmed) Hypertension(Confirm Active ed) Spinal Active stenosis(Confirmed) Allergies, Adverse Reactions, Alerts Substance Reaction Severity Status NKDA Active Medications amLODIPine 5 mg, 1 tab, Route: PO, Drug form: TAB, Daily, 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, kg, Start d ate: 01/26/16 18:00:00 CDT, Duration: 30 day, Stop date: 02/24/16 18:00:00 CDT Notes: (Same as: Norvasc) Start Date: 01/26/16 Stop Date: 01/27/16 Status: Discontinued aspirin 81 mg tablet, enteric coated 81 mg=1 tab, PO, Daily, # 90 tab, 3 Refill(s) Start Date: 01/08/16 Stop Date: 01/27/16 Status: Discontinued atorvastatin 40 mg, 1 tab, Route: PO, Drug form: TAB, Bedtime, 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, kg, Star t date: 01/26/16 21:00:00 CDT, Duration: 30 day, Stop date: 02/24/16 21:00:00 CD T Notes: (Same as: Lipitor) Start Date: 01/26/16 Stop Date: 01/27/16 Status: Discontinued bisacodyl 10 mg, 1 supp, Route: VA, Drug form: SUPP, Daily, 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, kg, PRN Constipation, Start date: 01/26/16 11:19:00 CDT, Duration: 30 day, Stop date: 11:18:00 CDT Notes: (Same As: Dulcolax, Bisco-Lax) Start Date: 01/26/16 Stop Date: 01/27/16 Status: Discontinued ceFAZolin 2 gm, 100 mL, Route: IVPB, Drug form: INJ, ONCALL, 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, kg, Sta rt date: 01/26/16 7:00:00 CDT, Duration: 30 day, Stop date: 02/25/16 6:59:00 CDT Notes: Same as: Ancef Start Date: 01/26/16 Stop Date: 01/26/16 Status: Discontinued ceFAZolin (ANES) Route: IV, Drug form: INJ, ONCE, Stop date: 01/26/16 8:36:00 CDT Start Date: 01/26/16 Stop Date: 01/26/16 Status: Completed ceFAZolin (SCIP) 1 gm, 100 mL, Route: IVPB, Drug form: INJ, Q6H, 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, kg, Start date: 01/26/16 13:30:00 CDT, Duration: 3 doses or times, Stop date: 01/27/16 1:3 0:00 CDT Start Date: 01/26/16 Stop Date: 01/27/16 Status: Completed celecoxib 200 mg, Route: PO, ONCALL, 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, kg, (for CrCl > 90 mL/min), Start date: 01/26/16 7:00:00 CDT, Duration: 30 day, Stop date: 02/25/16 6:59:00 CDT Start Date: 01/26/16 Stop Date: 01/26/16 Status: Completed Colace 100 mg oral capsule 100 mg=1 cap, PO, BID, # 60 cap, 0 Refill(s) Start Date: 01/26/16 Status: Ordered Cozaar 100 mg, 2 tab, Route: PO, Drug form: TAB, Daily, Start date: 01/27/16 9:00:00 CD T, Duration: 30 day, Stop date: 02/25/16 9:00:00 CDT Notes: (Same as: Cozaar) Start Date: 01/27/16 Stop Date: 01/27/16 Status: Discontinued Cyklokapron + sodium chloride 0.9% INJ 100 mL 1,000 mg, 10 mL, Route: IVPB, ONCE, Start date: 01/26/16 16:30:00 CDT, Stop date : 01/26/16 16:30:00 CDT Notes: (Same As: Cyklokapron) Start Date: 01/26/16 Stop Date: 01/26/16 Status: Completed dexamethasone 4 mg, 1 tab, Route: PO, Drug form: TAB, ONCE, Start date: 01/28/16 12:00:00 CDT, Stop date: 01/28/16 12:00:00 CDT Notes: Give with food.(Same As: Decadron) Start Date: 01/28/16 Stop Date: 01/27/16 Status: Canceled dexamethasone 4 mg, Route: IV, ONCE, 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, kg, Start date: 01/26/16 11:19:00 C DT, Stop date: 01/26/16 11:19:00 CDT Start Date: 01/26/16 Stop Date: 01/26/16 Status: Deleted dexamethasone 4 mg, Route: PO, ONCE, 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, kg, Start date: 01/26/16 11:19:00 C DT, Stop date: 01/26/16 11:19:00 CDT Start Date: 01/26/16 Stop Date: 01/26/16 Status: Deleted dexamethasone 2 mg, Route: PO, ONCE, 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, kg, Start date: 01/26/16 11:19:00 C DT, Stop date: 01/26/16 11:19:00 CDT Start Date: 01/26/16 Stop Date: 01/26/16 Status: Deleted dexamethasone 2 mg, Route: PO, ONCE, 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, kg, Start date: 01/26/16 11:19:00 C DT, Stop date: 01/26/16 11:19:00 CDT Start Date: 01/26/16 Stop Date: 01/26/16 Status: Deleted dexamethasone 10 mg, Route: IV, ONCE, 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, kg, Start date: 01/26/16 11:19:00 CDT, Stop date: 01/26/16 11:19:00 CDT Start Date: 01/26/16 Stop Date: 01/26/16 Status: Completed dexamethasone 2 mg, 0.5 tab, Route: PO, Drug form: TAB, ONCE, Start date: 01/29/16 12:00:00 CD T, Stop date: 01/29/16 12:00:00 CDT Notes: Give with food.(Same As: Rosa) Start Date: 01/29/16 Stop Date: 01/27/16 Status: Canceled dexamethasone 4 mg, 1 mL, Route: IV, Drug form: INJ, ONCE, Start date: 01/27/16 12:00:00 CDT, Stop date: 01/27/16 12:00:00 CDT Notes: Concentration: 4mg/ml Start Date: 01/27/16 Stop Date: 01/27/16 Status: Completed dexamethasone (ANES) Route: IV, Drug form: INJ, ONCE, Stop date: 01/26/16 8:41:00 CDT Start Date: 01/26/16 Stop Date: 01/26/16 Status: Completed dexamethasone 4 mg oral tablet 4 mg=1 tab, PO, ONCE, # 1 tab, 0 Refill(s), called to pharmacy Start Date: 01/27/16 Status: Ordered Dextrose 50% Syringe 12.5 gm, 25 mL, Route: IVP, Drug Form: INJ, 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, kg, PRN, PRN B lood Glucose Results, Start date: 01/26/16 12:38:00 CDT, Duration: 30 day, Stop date: 02/25/16 12:37:00 CDT Start Date: 01/26/16 Stop Date: 01/27/16 Status: Discontinued Dextrose 50% Syringe 25 gm, 50 mL, Route: IVP, Drug Form: INJ, 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, kg, PRN, PRN Blo od Glucose Results, Start date: 01/26/16 12:38:00 CDT, Duration: 30 day, Stop da te: 02/25/16 12:37:00 CDT Start Date: 01/26/16 Stop Date: 01/27/16 Status: Discontinued Dilaudid 0.2 mg, 0.2 mL, Route: IV, Drug form: INJ, Q3H, 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, kg, PRN Ot her -See Comment, Start date: 01/26/16 11:19:00 CDT, Duration: 30 day, Stop date : 02/25/16 11:18:00 CDT Start Date: 01/26/16 Stop Date: 01/27/16 Status: Discontinued Dilaudid 0.5 mg, 0.5 mL, Route: IV, Drug form: INJ, Q3H, 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, kg, PRN Ot her -See Comment, Start date: 01/26/16 11:19:00 CDT, Duration: 30 day, Stop date : 02/25/16 11:18:00 CDT Start Date: 01/26/16 Stop Date: 01/27/16 Status: Discontinued diphenhydrAMINE 12.5 mg, 0.5 tab, Route: PO, Drug form: TAB, Q6H, 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, kg, PRN Itching, Start date: 01/26/16 11:19:00 CDT, Duration: 30 day, Stop date: 6 11:18:00 CDT Start Date: 01/26/16 Stop Date: 01/27/16 Status: Discontinued docusate 100 mg, 1 cap, Route: PO, Drug form: CAP, BID, 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, kg, Start d ate: 01/26/16 17:00:00 CDT, Duration: 30 day, Stop date: 02/25/16 9:00:00 CDT Notes: (Same as: Colace) (Do Not Crush) Start Date: 01/26/16 Stop Date: 01/27/16 Status: Discontinued enoxaparin 40 mg, 0.4 mL, Route: SUB-Q, Drug form: INJ, Daily, 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, kg, St art date: 01/27/16 9:22:00 CDT, Duration: 30 day, Stop date: 02/25/16 9:22:00 CD T Notes: (Same as: Lovenox) Start Date: 01/27/16 Stop Date: 01/27/16 Status: Discontinued enoxaparin 40 mg/0.4 mL subcutaneous solution 40 mg=0.4 mL, SUB-Q, Daily, # 1 mL, 0 Refill(s), called to pharmacy Start Date: 01/27/16 Stop Date: 01/28/16 Status: Completed ePHEDrine (ANES) Route: IV, Drug form: INJ, ONCE, Stop date: 01/26/16 9:01:00 CDT Start Date: 01/26/16 Stop Date: 01/26/16 Status: Completed Fish Oil 1200 mg oral capsule 1,200 mg=1 cap, PO, Daily, 0 Refill(s) Start Date: 01/26/16 Status: Ordered gabapentin 300 mg oral capsule 300 mg, 1 cap, Route: PO, Drug form: CAP, TID, 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, kg, Start d ate: 01/26/16 14:00:00 CDT, Duration: 30 day, Stop date: 02/25/16 8:00:00 CDT Notes: (Same as: Neurontin) Start Date: 01/26/16 Stop Date: 01/27/16 Status: Discontinued glucagon 1 mg, Route: IM, Drug form: PDR/INJ, PRN, 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, kg, PRN Blood Gl ucose Results, Start date: 01/26/16 12:38:00 CDT, Duration: 30 day, Stop date: 1 12:37:00 CDT Start Date: 01/26/16 Stop Date: 01/27/16 Status: Discontinued glycopyrrolate (ANES) Route: IV, Drug form: INJ, ONCE, Stop date: 01/26/16 8:51:00 CDT Start Date: 01/26/16 Stop Date: 01/26/16 Status: Completed hydrochlorothiazide 25 mg oral tablet 12.5 mg, 0.5 tab, Route: PO, Drug form: TAB, Daily, Start date: 01/27/16 9:00:00 CDT, Duration: 30 day, Stop date: 02/25/16 9:00:00 CDT Notes: (Same as: Hydrodiuril) With food. Start Date: 01/27/16 Stop Date: 01/27/16 Status: Discontinued hydrochlorothiazide-losartan 12.5 mg-100 mg oral tablet 1 tab, Route: PO, Drug Form: TAB, 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, kg, Daily, Start date: 0 01/27/16 9:00:00 CDT, Duration: 30 day, Stop date: 02/25/16 9:00:00 CDT Start Date: 01/27/16 Stop Date: 01/26/16 Status: Deleted insulin aspart 4 unit, 0.04 mL, Route: SUB-Q, Drug form: SOLN, Bedtime, 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, k g, PRN Blood Glucose Results, Start date: 01/26/16 12:38:00 CDT, Duration: 30 da y, Stop date: 02/25/16 12:37:00 CDT Notes: Roll in palms of hands gently; Do not shake vigorously. (Same as: NovoLO G)"single patient use only"WASTE: F/P - Black; E - Municipal Trash Bin Stable f or 28 days at room temperature.Expires in days from Date Start Date: 01/26/16 Stop Date: 01/27/16 Status: Discontinued insulin aspart 3 unit, 0.03 mL, Route: SUB-Q, Drug form: SOLN, Bedtime, 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, k g, PRN Blood Glucose Results, Start date: 01/26/16 12:38:00 CDT, Duration: 30 da y, Stop date: 02/25/16 12:37:00 CDT Notes: Roll in palms of hands gently; Do not shake vigorously. (Same as: Naz Pritchett)"single patient use only"WASTE: F/P - Black; E - Municipal Trash Bin Stable f or 28 days at room temperature.Expires in days from Date Start Date: 01/26/16 Stop Date: 01/27/16 Status: Discontinued insulin aspart 2 unit, 0.02 mL, Route: SUB-Q, Drug form: SOLN, Bedtime, 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, k g, PRN Blood Glucose Results, Start date: 01/26/16 12:38:00 CDT, Duration: 30 da y, Stop date: 02/25/16 12:37:00 CDT Notes: Roll in palms of hands gently; Do not shake vigorously. (Same as: Naz Pritchett)"single patient use only"WASTE: F/P - Black; E - Municipal Trash Bin Stable f or 28 days at room temperature.Expires in days from Date Start Date: 01/26/16 Stop Date: 01/27/16 Status: Discontinued insulin aspart 1 unit, 0.01 mL, Route: SUB-Q, Drug form: SOLN, Bedtime, 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, k g, PRN Blood Glucose Results, Start date: 01/26/16 12:38:00 CDT, Duration: 30 da y, Stop date: 02/25/16 12:37:00 CDT Notes: Roll in palms of hands gently; Do not shake vigorously. (Same as: Naz Pritchett)"single patient use only"WASTE: F/P - Black; E - Municipal Trash Bin Stable f or 28 days at room temperature.Expires in days from Date Start Date: 01/26/16 Stop Date: 01/27/16 Status: Discontinued insulin aspart 4 unit, 0.04 mL, Route: SUB-Q, Drug form: SOLN, TID-Before Meals, 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, kg, PRN Blood Glucose Results, Start date: 01/26/16 12:38:00 CDT, Durati on: 30 day, Stop date: 02/25/16 12:37:00 CDT Notes: Roll in palms of hands gently; Do not shake vigorously. (Same as: Naz Pritchett)"single patient use only"WASTE: F/P - Black; E - Municipal Trash Bin Stable f or 28 days at room temperature.Expires in days from Date Start Date: 01/26/16 Stop Date: 01/27/16 Status: Discontinued insulin aspart 2 unit, 0.02 mL, Route: SUB-Q, Drug form: SOLN, TID-Before Meals, 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, kg, PRN Blood Glucose Results, Start date: 01/26/16 12:38:00 CDT, Durati on: 30 day, Stop date: 02/25/16 12:37:00 CDT Notes: Roll in palms of hands gently; Do not shake vigorously. (Same as: Naz Pritchett)"single patient use only"WASTE: F/P - Black; E - Municipal Trash Bin Stable f or 28 days at room temperature.Expires in days from Date Start Date: 01/26/16 Stop Date: 01/27/16 Status: Discontinued insulin aspart 6 unit, 0.06 mL, Route: SUB-Q, Drug form: SOLN, TID-Before Meals, 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, kg, PRN Blood Glucose Results, Start date: 01/26/16 12:38:00 CDT, Durati on: 30 day, Stop date: 02/25/16 12:37:00 CDT Notes: Roll in palms of hands gently; Do not shake vigorously. (Same as: Naz Pritchett)"single patient use only"WASTE: F/P - Black; E - Municipal Trash Bin Stable f or 28 days at room temperature.Expires in days from Date Start Date: 01/26/16 Stop Date: 01/27/16 Status: Discontinued insulin aspart 10 unit, 0.1 mL, Route: SUB-Q, Drug form: SOLN, TID-Before Meals, 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, kg, PRN Blood Glucose Results, Start date: 01/26/16 12:38:00 CDT, Durati on: 30 day, Stop date: 02/25/16 12:37:00 CDT Notes: Roll in palms of hands gently; Do not shake vigorously. (Same as: Naz Pritchett)"single patient use only"WASTE: F/P - Black; E - Municipal Trash Bin Stable f or 28 days at room temperature.Expires in days from Date Start Date: 01/26/16 Stop Date: 01/27/16 Status: Discontinued insulin aspart 8 unit, 0.08 mL, Route: SUB-Q, Drug form: SOLN, TID-Before Meals, 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, kg, PRN Blood Glucose Results, Start date: 01/26/16 12:38:00 CDT, Durati on: 30 day, Stop date: 02/25/16 12:37:00 CDT Notes: Roll in palms of hands gently; Do not shake vigorously. (Same as: Naz Pritchett)"single patient use only"WASTE: F/P - Black; E - Municipal Trash Bin Stable f or 28 days at room temperature.Expires in days from Date Start Date: 01/26/16 Stop Date: 01/27/16 Status: Discontinued ketOROLAC 15 mg, 1 mL, Route: IV, Drug form: INJ, Q8H, 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, kg, Start keith e: 01/26/16 16:00:00 CDT, Duration: 2 day, Stop date: 01/28/16 8:00:00 CDT Notes: (Same as:Toradol) IV bolus must be given >15 seconds. Give IM administration slowly and deeply into the muscle. Not for use > 4 days. Start Date: 01/26/16 Stop Date: 01/27/16 Status: Discontinued Lactated Ringers Injection IV 1000 mL 1,000 mL, Rate: 25 ml/hr, Infuse over: 40 hr, Route: IV, 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 kg , Total Volume: 1,000, Start date: 01/26/16 7:18:00 CDT, Duration: 30 day, Stop date: 02/25/16 7:17:00 CDT Start Date: 01/26/16 Stop Date: 01/26/16 Status: Discontinued lidocaine (ANES) Route: IV, Drug form: INJ, ONCE, Stop date: 01/26/16 8:36:00 CDT Start Date: 01/26/16 Stop Date: 01/26/16 Status: Completed LR 1000 mL INJ (ANES) Route: IV, Total Volume: 1,000, Start date: 01/26/16 7:39:00 CDT, Stop date: 8:39:00 CDT Start Date: 01/26/16 Stop Date: 01/26/16 Status: Completed metFORMIN 1000 mg oral tablet, extended release 1,000 mg, 2 tab, Route: PO, Drug form: TAB, BID-Meals, 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, kg, Start date: 01/26/16 17:00:00 CDT, Duration: 30 day, Stop date: 02/25/16 8:00:00 CDT Notes: (Same as: Glucophage) Take with meal Start Date: 01/26/16 Stop Date: 01/27/16 Status: Discontinued multivitamin 1 tab, PO, Daily, 0 Refill(s) Start Date: 01/26/16 Status: Ordered neostigmine (ANES) Route: IV, Drug form: INJ, ONCE, Stop date: 01/26/16 11:01:00 CDT Start Date: 01/26/16 Stop Date: 01/26/16 Status: Completed [place] 10/325 oral tablet 1 tab, Route: PO, Drug Form: TAB, 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, kg, Q3H, PRN Pain Score 4-6, Start date: 01/26/16 11:19:00 CDT, Duration: 30 day, Stop date: 02/25/16 11 :18:00 CDT Notes: Do not exceed 4gm/day of acetaminophen. (Same as: [place]ing 325/10) Start Date: 01/26/16 Stop Date: 01/27/16 Status: Discontinued [place] 5/325 oral tablet 1 tab, Route: PO, Drug Form: TAB, 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, kg, Q3H, PRN Pain Score 1-3, Start date: 01/26/16 11:19:00 CDT, Duration: 30 day, Stop date: 02/25/16 11 :18:00 CDT Notes: (Same as: [place] 325/5) Do not exceed 4gm/day of acetaminophen. Start Date: 01/26/16 Stop Date: 01/27/16 Status: Discontinued ondansetron (ANES) Route: IV, Drug form: INJ, ONCE, Stop date: 01/26/16 10:56:00 CDT Start Date: 01/26/16 Stop Date: 01/26/16 Status: Completed oxyCONTIN 10 mg, Route: PO, Drug form: ERTAB, ONCALL, 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, kg, Start date : 01/26/16 7:00:00 CDT, Duration: 30 day, Stop date: 02/25/16 6:59:00 CDT Start Date: 01/26/16 Stop Date: 01/26/16 Status: Completed pantoprazole 40 mg, 1 tab, Route: PO, Drug form: ECTAB, Before Dinner, 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, kg, Start date: 01/26/16 16:30:00 CDT, Duration: 30 day, Stop date: 02/24/16 16: 30:00 CDT Notes: Tablet should not be chewed or crushed.(Same as: Protonix) Start Date: 01/26/16 Stop Date: 01/27/16 Status: Discontinued Percocet 10/325 oral tablet 1 tab, Route: PO, Drug Form: TAB, 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, kg, Q3H, PRN Pain Score 7-10, Start date: 01/26/16 11:19:00 CDT, Duration: 30 day, Stop date: 02/25/16 1 1:18:00 CDT Notes: Do not exceed 4gm/day of acetaminophen. (Same as: Percocet-5/325) Start Date: 01/26/16 Stop Date: 01/27/16 Status: Discontinued Percocet 10/325 oral tablet 1 tab, PO, Q3H, PRN Pain Score 7-10, # 90 tab, 0 Refill(s), given to patient Start Date: 01/27/16 Stop Date: 01/28/16 Status: Completed phenylephrine (ANES) Route: IV, Drug form: INJ, ONCE, Stop date: 01/26/16 8:51:00 CDT Start Date: 01/26/16 Stop Date: 01/26/16 Status: Completed propofol (ANES) Route: IV, Drug form: INJ, ONCE, Stop date: 01/26/16 8:36:00 CDT Start Date: 01/26/16 Stop Date: 01/26/16 Status: Completed AUDREY Pericapsular INJ 100 mL, Route: InFILtration(local), Drug Form: INJ, 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, kg, 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, Start date: 01/26/16 7:00:00 CDT, Duration: 1 day, Stop date: 01/27/16 6:5 9:00 CDT Notes: NOT FOR IV useRopivacaine 5 mg/mL (49.25 mL) Epinephrine 1 mg/mL (0.5 mL) Clonidine 0.1 mg/mL (0.8 mL) Ketorolac 30 mg/mL (1 mL) Normal Saline 48 .45 mL Start Date: 01/26/16 Stop Date: 01/27/16 Status: Discontinued rocuronium (ANES) Route: IV, Drug form: INJ, ONCE, Stop date: 01/26/16 8:36:00 CDT Start Date: 01/26/16 Stop Date: 01/26/16 Status: Completed Saline Flush 0.9% 10 ml, Route: IVP, Drug Form: INJ, 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, kg, PRN, PRN Line Flush , Start date: 01/27/16 11:19:00 CDT, Duration: 30 day, Stop date: 02/26/16 11:18 :00 CDT Notes: (Same as: BD Posiflush) Start Date: 01/27/16 Stop Date: 01/27/16 Status: Discontinued Saline Flush 0.9% 10 ml, Route: IVP, Drug Form: INJ, 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, kg, Q12H, Start date: 0 01/27/16 21:00:00 CDT, Duration: 30 day, Stop date: 02/26/16 9:00:00 CDT Notes: (Same as: BD Posiflush) Start Date: 01/27/16 Stop Date: 01/27/16 Status: Canceled sodium chloride 0.45% 1000 ml INJ 1,000 mL 1,000 mL, Rate: 75 ml/hr, Infuse over: 13.3 hr, Route: IV, 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 kg, Total Volume: 1,000, Start date: 01/26/16 11:19:00 CDT, Duration: 30 day, St op date: 02/25/16 11:18:00 CDT Start Date: 01/26/16 Stop Date: 01/27/16 Status: Discontinued Toprol-XL 50 mg oral tablet, extended release 50 mg, 1 tab, Route: PO, Drug form: ERTAB, BID, Start date: 01/26/16 14:00:00 CD T, Duration: 30 day, Stop date: 02/24/16 22:00:00 CDT Notes: (Same as: Toprol XL) May split tab, but do not crush. Start Date: 01/26/16 Stop Date: 01/27/16 Status: Discontinued tramadol 50 mg oral tablet 50 mg=1 tab, PO, BID, PRN Pain 1-3/Temp > 100.4 F, # 30 tab, 0 Refill(s) Start Date: 01/26/16 Stop Date: 01/27/16 Status: Discontinued tranexamic acid 1,000 mg, Route: IV, ONCE, 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, kg, Start date: 01/26/16 11:19: 00 CDT, Stop date: 01/26/16 11:19:00 CDT Start Date: 01/26/16 Stop Date: 01/26/16 Status: Deleted tranexamic acid 1,000 mg, Route: IV, ONCALL, 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, kg, Start date: 01/26/16 7:00 :00 CDT, Duration: 30 day, Stop date: 02/25/16 6:59:00 CDT Start Date: 01/26/16 Stop Date: 01/26/16 Status: Deleted tranexamic acid (ANES) Route: IV, Drug form: INJ, ONCE, Stop date: 01/26/16 10:56:00 CDT Start Date: 01/26/16 Stop Date: 01/26/16 Status: Completed Tylenol 1,000 mg, Route: PO, ONCALL, 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, kg, Start date: 01/26/16 7:00 :00 CDT, Duration: 30 day, Stop date: 02/25/16 6:59:00 CDT Start Date: 01/26/16 Stop Date: 01/26/16 Status: Completed vancomycin 1,250 mg, 250 mL, Route: IVPB, Drug form: INJ, ONCALL, 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, kg, Start date: 01/26/16 7:00:00 CDT, Stop date: 01/26/16 21:12:00 CDT Notes: TIME CRITICAL MEDICATIONSame as: Vancocin-NS (premixed)Infusion rate< 1000 mg: infuse over 1 [id number] - 1500 mg: infuse over 1.5 [id number] - 2000 mg: infuse over 2 hours> 2001 mg: infuse over 2.5 hours Start Date: 01/26/16 Stop Date: 01/27/16 Status: Discontinued vancomycin (ANES) Route: IV, Drug form: INJ, ONCE, Stop date: 01/26/16 8:41:00 CDT Start Date: 01/26/16 Stop Date: 01/26/16 Status: Completed vancomycin (SCIP) + sodium chloride 0.9% INJ 250 mL 1,000 mg, Route: IVPB, [id number], 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, kg, Time Critical Medicati on, Start date: 01/26/16 19:30:00 CDT, Duration: 2 doses or times, Stop date: 7:30:00 CDT, Pharmacy to adjust dose for renal function Notes: TIME CRITICAL MEDICATION(Same As: Vancocin)Infusion rate< 1000 mg: infuse over 1 [id number] - 1500 mg: infuse over 1.5 [id number] - 2000 mg: infuse over 2 hours> 2001 mg: infuse over 2.5 hours MEDICATION WASTE Product Size: 1000 mgProduct Wasted: ___ mg Start Date: 01/26/16 Stop Date: 01/27/16 Status: Completed vancomycin + sodium chloride 0.9% 250 mL INJ (for IV set) 250 mL 1,250 mg, Route: IVPB, ONCALL, 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, kg, Start date: 01/26/16 7: 00:00 CDT, Duration: 30 day, Stop date: 02/25/16 6:59:00 CDT Notes: TIME CRITICAL MEDICATION(Same As: Vancocin)Infusion rate< 1000 mg: infuse over 1 [id number] - 1500 mg: infuse over 1.5 [id number] - 2000 mg: infuse over 2 hours> 2001 mg: infuse over 2.5 hours MEDICATION WASTE Product Size: 1000 mgProduct Wasted: ___ mg Start Date: 01/26/16 Stop Date: 01/27/16 Status: Discontinued Vitamin C 500 mg, 1 tab, Route: PO, Drug form: TAB, Daily, 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, kg, Start date: 01/27/16 9:00:00 CDT, Duration: 30 day, Stop date: 02/25/16 9:00:00 CDT Notes: (Same as: Vitamin C) Start Date: 01/27/16 Stop Date: 01/27/16 Status: Discontinued Voltaren Topical 1% topical gel 4 gm=1 appl, TOP, BID, PRN Apply to affected area, # 100 gm, 1 Refill(s) Start Date: 01/08/16 Stop Date: 01/27/16 Status: Discontinued Zofran 4 mg, 2 mL, Route: IV, Drug form: INJ, Q8H, 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, kg, Start date : 01/26/16 16:00:00 CDT, Duration: 3 doses or times, Stop date: 01/27/16 8:00:00 CDT Notes: (Same as: Zofran) MEDICATION WASTE Product Size: 4 mgProduct Was jess: ___ mg Start Date: 01/26/16 Stop Date: 01/27/16 Status: Completed Zofran 4 mg, 2 mL, Route: IV, Drug form: INJ, Q6H, 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, kg, PRN Nausea , Start date: 01/26/16 11:19:00 CDT, Duration: 30 day, Stop date: 02/25/16 11:18 :00 CDT Notes: (Same as: Zofran) MEDICATION WASTE Product Size: 4 mgProduct Was jess: ___ mg Start Date: 01/26/16 Stop Date: 01/27/16 Status: Discontinued Results BLOOD BANK RESULTS 1 2 3 Most recent to oldest [Reference Range]: A POS *Unknown* (01/08/16 12:49 PM) ABO/Rh Negative (01/08/16 12:49 PM) Antibody Scrn ELECTROLYTES 1 2 3 Most recent to oldest [Reference Range]: 134 mEq/L *LOW* (01/27/16 6:24 AM) 138 mEq/L (01/08/16 12:49 PM) Sodium Lvl [135-145 mEq/L] 4.2 mEq/L (01/27/16 6:24 AM) 3.5 mEq/L (01/08/16 12:49 PM) Potassium Lvl [3.5-5.1 mEq/L] 99 mEq/L (01/27/16 6:24 AM) 101 mEq/L (01/08/16 12:49 PM) Chloride Lvl [95-109 mEq/L] 26 mEq/L (01/27/16 6:24 AM) 30 mEq/L (01/08/16 12:49 PM) CO2 [24-32 mEq/L] 13.2 mEq/L (01/27/16 6:24 AM) 10.5 mEq/L (01/08/16 12:49 PM) AGAP [10.0-20.0 mEq/L] CHEM PANEL 1 2 3 Most recent to oldest [Reference Range]: 0.62 mg/dL (01/27/16 6:24 AM) 0.79 mg/dL (01/26/16 2:22 PM) 0.60 mg/dL (01/08/16 12:49 PM) Creatinine Lvl [0.50-1.40 mg/dL] 95 mL/min/1.73m2 1 *NA* (01/27/16 6:24 AM) 79 mL/min/1.73m2 2 *NA* (01/26/16 2:22 PM) 95 mL/min/1.73m2 3 *NA* (01/08/16 12:49 PM) eGFR 16 mg/dL (01/27/16 6:24 AM) 16 mg/dL (01/08/16 12:49 PM) BUN [7-22 mg/dL] 27 *HI* (01/08/16 12:49 PM) B/C Ratio [6-25] 116 mg/dL *HI* (01/27/16 6:24 AM) 112 mg/dL *HI* (01/08/16 12:49 PM) Glucose Lvl [70-99 mg/dL] 8.2 g/dL (01/08/16 12:49 PM) Total Protein [6.4-8.4 g/dL] 4.1 g/dL (01/08/16 12:49 PM) Albumin Lvl [3.5-5.0 g/dL] 4.1 g/dL (01/08/16 12:49 PM) Globulin [2.7-4.2 g/dL] 1.0 (01/08/16 12:49 PM) A/G Ratio [0.7-1.6] 8.1 mg/dL *LOW* (01/27/16 6:24 AM) 9.0 mg/dL (01/08/16 12:49 PM) Calcium Lvl [8.5-10.5 mg/dL] 14 unit/L (01/08/16 12:49 PM) ALT [0-65 unit/L] 15 unit/L (01/08/16 12:49 PM) AST [0-37 unit/L] 61 unit/L (01/08/16 12:49 PM) Alk Phos [39-136 unit/L] 0.4 mg/dL (01/08/16 12:49 PM) Bili Total [0.2-1.3 mg/dL] 1Result Comment: The eGFR is calculated [...] be mul tiplied by the estimated BMI. URINE AND STOOL 1 2 3 Most recent to oldest [Reference Range]: Clear (01/08/16 12:49 PM) UA Turbidity [Clear] Yellow *NA* (01/08/16 12:49 PM) UA Color [Yellow] 5.0 (01/08/16 12:49 PM) UA pH [5.0-8.0] 1.024 (01/08/16 12:49 PM) UA Spec Grav [<=1.030] Negative mg/dL *NA* (01/08/16 12:49 PM) UA Glucose [Negative mg/dL] Negative (01/08/16 12:49 PM) UA Blood [Negative] Negative mg/dL *NA* (01/08/16 12:49 PM) UA Ketones [Negative mg/dL] Negative mg/dL (01/08/16 12:49 PM) UA Protein [Negative mg/dL] <=1.0 mg/dL *NA* (01/08/16 12:49 PM) UA Urobilinogen [0.1-1.0 mg/dL] Negative *NA* (01/08/16 12:49 PM) UA Bili [Negative] Trace *ABN* (01/08/16 12:49 PM) UA Leuk Est [Negative] Negative (01/08/16 12:49 PM) UA Nitrite [Negative] 3 /HPF (01/08/16 12:49 PM) UA WBC [0-5 /HPF] 2 /HPF (01/08/16 12:49 PM) UA RBC [0-2 /HPF] Occasional /LPF *NA* (01/08/16 12:49 PM) UA Sq Epi [Few /LPF] 3 /LPF *HI* (01/08/16 12:49 PM) UA Hyal Cast [0-2 /LPF] Few /LPF *NA* (01/08/16 12:49 PM) UA Mucus [None Seen /LPF] HEMATOLOGY 1 2 3 Most recent to oldest [Reference Range]: 9.9 K/CMM (01/27/16 6:24 AM) 9.1 K/CMM (01/08/16 12:49 PM) WBC [3.7-10.4 K/CMM] 3.11 M/CMM *LOW* (01/27/16 6:24 AM) 4.30 M/CMM (01/08/16 12:49 PM) RBC [4.20-5.40 M/CMM] 9.1 g/dL *LOW* (01/27/16 6:24 AM) 12.2 g/dL (01/08/16 12:49 PM) Hgb [12.0-16.0 g/dL] 26.2 % *LOW* (01/27/16 6:24 AM) 36.3 % (01/08/16 12:49 PM) Hct [36.0-48.0 %] 84.5 fL (01/27/16 6:24 AM) 84.5 fL (01/08/16 12:49 PM) MCV [80.0-98.0 fL] 29.4 pg (01/27/16 6:24 AM) 28.3 pg (01/08/16 12:49 PM) MCH [27.0-31.0 pg] 34.8 g/dL (01/27/16 6:24 AM) 33.5 g/dL (01/08/16 12:49 PM) MCHC [32.0-36.0 g/dL] 14.3 % (01/27/16 6:24 AM) 14.9 % *HI* (01/08/16 12:49 PM) RDW [11.5-14.5 %] 313 K/CMM (01/27/16 6:24 AM) 420 K/CMM (01/26/16 2:22 PM) 288 K/CMM (01/08/16 12:49 PM) Platelet [133-450 K/CMM] 6.8 fL *LOW* (01/27/16 6:24 AM) 7.4 fL (01/08/16 12:49 PM) MPV [7.4-10.4 fL] 71.6 % (01/27/16 6:24 AM) 64.1 % (01/08/16 12:49 PM) Segs [45.0-75.0 %] 15.1 % *LOW* (01/27/16 6:24 AM) 23.3 % (01/08/16 12:49 PM) Lymphocytes [20.0-40.0 %] 11.3 % (01/27/16 6:24 AM) 9.4 % (01/08/16 12:49 PM) Monocytes [2.0-12.0 %] 1.3 % (01/27/16 6:24 AM) 2.2 % (01/08/16 12:49 PM) Eosinophils [0.0-4.0 %] 0.7 % (01/27/16 6:24 AM) 1.0 % (01/08/16 12:49 PM) Basophils [0.0-1.0 %] 7.1 K/CMM (01/27/16 6:24 AM) 5.8 K/CMM (01/08/16 12:49 PM) Segs-Bands # [1.5-8.1 K/CMM] 1.5 K/CMM (01/27/16 6:24 AM) 2.1 K/CMM (01/08/16 12:49 PM) Lymphocytes # [1.0-5.5 K/CMM] 1.1 K/CMM *HI* (01/27/16 6:24 AM) 0.8 K/CMM (01/08/16 12:49 PM) Monocytes # [0.0-0.8 K/CMM] 0.1 K/CMM (01/27/16 6:24 AM) 0.2 K/CMM (01/08/16 12:49 PM) Eosinophils # [0.0-0.5 K/CMM] 0.1 K/CMM (01/27/16 6:24 AM) 0.1 K/CMM (01/08/16 12:49 PM) Basophils # [0.0-0.2 K/CMM] 14.0 seconds (01/26/16 2:22 PM) 12.5 seconds (01/08/16 12:49 PM) PT [12.0-14.7 seconds] 1.05 (01/26/16 2:22 PM) 0.90 (01/08/16 12:49 PM) INR [0.85-1.17] 29.8 seconds (01/26/16 2:22 PM) 27.3 seconds (01/08/16 12:49 PM) PTT [22.9-35.8 seconds] BACTERIAL - SEROLOGY 1 2 3 Most recent to oldest [Reference Range]: Negative (01/08/16 12:49 PM) MRSA by PCR Immunizations No data [...] Plan Extracted from: Title: Clinical Document Author: Juventino Del Cid DO Date: 01/27/16 Progress Daily [facility] Completed: Dec, 10:56 by Juventino Del Cid DO RM: 240 - 1P, SE [id number] (: 1950) F Attending: Humphrey Phoenix MDPhone: Service: Orthopedic Reason for Admission: UNK Working DRG: Bone diseases & arthropathies w/o CARE HOME Code status: None Specified=FULL CODECurrent diet: Isolation: None Documented Allergies: NKDA SUBJECTIVE Patient seen and examined. Events noted overnight. Labs/Images reviewed doing ok, working with therapy OBJECTIVE Labs (Last four charted values) WBC 9.9(JAN 26)9.1(JAN 07) Hgb L 9.1(JAN 26)12.2(JAN 07) Hct L 26.2(JAN 26)36.3(DEC 08) Plt 313(JAN 26)420(JAN 25)288(DEC 08) Na L 134(JAN 26)138(JAN 07) K 4.2(JAN 26)3.5(JAN 07) CO2 26(JAN 26)30(DEC 08) Cl 99(JAN 26)101(DEC 08) Cr 0.62(JAN 26)0.79(JAN 25)0.60(JAN 07) BUN 16(JAN 26)16(JAN 07) Glucose Random H 116(JAN 26)H 112(JAN 07) Ca L 8.1(JAN 26)9.0(JAN 07) PT 14.0(JAN 25)12.5(DEC 08) INR 1.05(JAN 25)0.90(JAN 07) PTT 29.8(JAN 25)27.3(JAN 07) ASSESSMENT & EXAM Gen: NAD, Alert, Awake HEENT: NC/AT, PERRLA, oral area clear and moist Neck: No LAD, No JVD, trachea midline Chest: CTAB, no c/w/r CV: RRR, S1, S2 GI: +BS, S, NT, ND, No organomegaly Ext: no c/c/e - left knee incision site intact Neuro: AOx3, no gross deficits noted Skin: No notable rashes PLAN & TREATMENT H/h stable Bg stable cont with PT/OT poss dc later today pain controlled ok to dc home today as per primary team DIAGNOSES & PROBLEMS 1. Left knee degenerative joint disease, status post total knee arthroplasty. 2. Type 2 diabetes mellitus, controlled. 3. Hypertension. 4. Hyperlipidemia. Ready for Discharge (Yes/No)? Garrett still necessary (Yes/No): Line still necessary (Yes/No): 24hr Labs 01/26 0624 Glucose Ior512 H BUN16 Creatinine Lvl0.62 Sodium Zse185 L Potassium Lvl4.2 Chloride Lvl99 CO226 AGAP13.2 Calcium Lvl8.1 L eGFR95 WBC9.9 RBC3.11 L Hgb9.1 L Hct26.2 L MCV84.5 MCH29.4 MCHC34.8 RDW14.3 Dltouxxy679 MPV6.8 L Segs71.6 Nhnuqhisq24.3 Ydjoewzqtcn02.1 L Eosinophils1.3 Basophils0.7 Segs-Bands #7.1 Lymphocytes #1.5 Monocytes #1.1 H Eosinophils #0.1 Basophils #0.1 01/26 0623 Glucose WOO502 H 01/25 2047 Glucose RNG990 H 01/25 1608 Glucose RRC340 H 01/25 1422 Creatinine Lvl0.79 eGFR79 Zeuybxog520 PT14.0 INR1.05 PTT29.8 01/25 1131 Glucose XRH822 H VitalsTmp(F)NuyjrGNEOAeX7KWE2 01/26 09:14----03400/74-------- 01/26 08:0098.134923/235012--- 01/26 07:10 1893 21% 01/26 05:25----8495/60-------- 01/26 04:5197.13381/848034--- 24 Hr Tmax: 98.3F (36.83c) at 01/26 08:00Vital Signs are the last 5 in the past 48 hours. DateWt(kg)Wt(lb)Ht(cm)Ht(in)Method 01/07 (initial) 88.64 195.00Measured 01/07162.56 64.00Stated I&ORecordInOutBal 01/2724hr Tot 253 0 253 01/2624hr Tot 2416 310 2106 Medications (61) Active [...] Syringe) 25 gm IVP PRN 01/26/16 acetaminophen-hydrocodone ([place] 5/325 oral tablet) 1 tab PO Q3H 01/26/16 acetaminophen-hydrocodone ([place] 10/325 oral tablet) 1 tab PO Q3H 01/26/16 acetaminophen-oxycodone (Percocet 10/325 oral tablet) 1 tab PO Q3H 01/26/16 bisacodyl 10 mg VA Daily 01/26/16 diphenhydrAMINE 12.5 mg PO Q6H [...] 1,000 mL 1,000 mL 75 ml/hr Extracted from: Title: Clinical Document Author: Humphrey Phoenix MD Date: 01/26/16 TKA Operative Note Date: 01/26/2016 Location: [facility] Attending: Humphrey Phoenix MD Pre-op dx: Left knee osteoarthritis Post-op dx: Left knee osteoarthritis, arthrofibrosis, patella baja Procedure: Left total knee arthroplasty, complex Anesthesiologist: general, dilaudid spinal Anesthesia: Dr. Roper Site Supervisor: sandrine Purvis T-time: 150 min EBL: _minimal UOP: no garrett IVF: see anesthesia note Transfusion: none required Implants: Portillo and Nephew Femur: 5N, Legion, Oxinium Tibia: Carmen 2, 4 Polyethylene: 9 mm, PS Patella: 29 mm Cement: [place] Simplex Abx Cement, 2 packs Resections: Femur: [...] were worn for the entire procedure. A or first assist registered nurse was utilized for the entire procedure. The or first assist registered nurse aided in positioning, retraction, implant sizing/implementation, and closure. The or first assist registered nurse decreased surgical time and therefore esvin-operative morbidity. [...] with no range of motion requirements. Extracted from: Title: Clinical Document Author: Humphrey [...] of the right knee which demonstrates end-stage vxhr-sz-hgcl articulation in the medial compartment and periarticular osteophytes, eawp-zb-kbob articulation, subchondral sclerosis in the arterial compartment [...]
--- OUTSIDE RECORDS SUMMARY | 2019-01-17 20:09 | XMS REPORT | Summary of Care ---
Author Author [facility] Address Unknown Phone Unavailable Encounter HQ Encntr_aliterence(FIN) [id number] Date(s): 01/28/16 - 02/26/16 [facility] Final: Stiffness of left knee, not elsewhere [...]
--- OUTSIDE RECORDS SUMMARY | 2019-01-17 20:09 | XMS REPORT | Summary of Care ---
Author Author [facility] [place] Organization [facility] [place] Address Unknown Phone Unavailable Encounter HQ Falgunir_sagar(FIN) [id number] Date(s): 04/24/18 - 04/24/18 [facility] [place] [address] [place] [phone] Encounter Diagnosis Encounter for screening mammogram for malignant neoplasm of breast (Final) - 04/30/18 Discharge Disposition: Home or Self Care Attending Physician: Sindi Mccarty MD Referring Physician: Sindi Mccarty MD Vital Signs No data available for this section Problem List Condition Effective Dates Status Health Status Informant Acid Active reflux(Confirmed) Diabetes Active mellitus(Confirmed) Hyperlipidemia(Confi Active rmed) Hypertension(Confirm Active ed) Spinal Active stenosis(Confirmed) Allergies, Adverse Reactions, Alerts No Known Medication Allergies Medications No data available for this section [...]
--- OUTSIDE RECORDS SUMMARY | 2019-01-17 20:09 | XMS REPORT | Summary of Care ---
Author Author [facility] Outpatient Imaging [facility] Outpatient Imaging [facility] Address Unknown Phone Unavailable Encounter HQ Baljit(FIN) [id number] Date(s): 04/28/17 - 04/28/17 [facility] [address] [facility], [address] [place] [phone] Discharge Disposition: Home or Self Care Attending [...]
[2019-01-17] MEDS ORDERED: DOXYCYCLINE HY100 MG PO (20:58)
== END 2019-01-17 21:00 | disposition home or self-care (01) ==
LOC: FSED 20:04
DX: M79.631 Pain in right forearm (principal); L03.113 Cellulitis of right upper limb; M19.031 Primary osteoarthritis, right wrist; M77.8 Other enthesopathies, not elsewhere classified; I10 Essential (primary) hypertension
CPT/HCPCS: 99283